=== PATIENT | male | born 1945 | race Caucasian/White ===

== ENCOUNTER → 2017-08-26 | Day surgery (SDC) | payer OTHER, MEDICARE ==
[~2017-08-26] MED LIST: PROPOFOL 20 ML IV
[2017-08-26] MEDS: IV RINGERS,LACTATED 1000ML 1,000 ML IV (13:15)
== END | disposition home or self-care (01) ==
LOC: ENDOS 12:32
DX: Z43.1 Encounter for attention to gastrostomy (principal); K21.9 Gastro-esophageal reflux disease without esophagitis; E11.9 Type 2 diabetes mellitus without complications; F41.9 Anxiety disorder, unspecified; D64.9 Anemia, unspecified; N40.0 Benign prostatic hyperplasia without lower urinary tract symptoms; I10 Essential (primary) hypertension; E66.9 Obesity, unspecified; Z68.28 Body mass index [BMI] 28.0-28.9, adult; Z87.39 Personal history of other diseases of the musculoskeletal system and connective tissue; Z98.890 Other specified postprocedural states; Z87.01 Personal history of pneumonia (recurrent); Z88.5 Allergy status to narcotic agent; Z88.0 Allergy status to penicillin; Z88.6 Allergy status to analgesic agent; Z88.1 Allergy status to other antibiotic agents; Z79.01 Long term (current) use of anticoagulants; Z96.641 Presence of right artificial hip joint
CPT/HCPCS: 43247; J2704

== ENCOUNTER → 2018-04-13 | Day surgery (SDC) | payer OTHER ==
[~2018-04-13] MED LIST changes: +ACET1TAB33 PO; +ACET500T33 PO; +ACET650S11 PR; +ALBUTEROL SULFATE 2.5 MG/3 ML NEBU. NEB PRN; +ASCO10002 PO; +BISA-42 PO; +CALC600T4 PO; +CARB1TAB2 PO; +CETI10TA22 PO; +CHOL100013 PO; +CHOL2000 PO; +CHOL500045 PO; +DOCU-109 PO; +DOCU100C28 PO; +EPINEPHrine 1 MG/ML VIAL INJ PRN; +FURO-68 PO; +GLUC1CAP13 PO; +HYDR-2765 PO; +HYDROmorphone 2 MG/ML VIAL IV PRN; +IPRA0.2S5 NEB; +IV RINGERS,LACTATED 1000ML 1,000 ML IV SCH; +KETAMINE HCL IN NACL, ISO-OSM 50 MG/5 ML SYRINGE ONE; +LIDOCAINE 1% Multi-Dose 20 ML VIAL. INJ PRN; +LIDOCAINE 1% PF 2 ML VIAL. ID PRN; +LIDOCAINE 2% PF 5 ML VIAL. ONE; +LIDOCAINE 2% VISCOUS 100 ML BOTTLE. MM PRN; +LIDOCAINE 4% TOPICAL 50 ML SOLUTION. MM PRN; +LORA2ORA7 SL; +MICO142C TP; +MIDAZOLAM HCL/PF 2 MG/2 ML VIAL. IV PRN; +MORP100S3 SL; +MORPHINE SULFATE 4 MG/ML VIAL. IV PRN; +MULT-658 PO; +NYST15PO9 TP; +OMEG1CAP27 PO; +ONDANSETRON PF 4 MG/2 ML VIAL. IV PRN; +POTA20TA12 PO; +POTA20TA82 PO; +PRAM0.255 PO; +PRAM1.5T PO; +PROCHLORPERAZINE 10 MG/2 ML VIAL. IV PRN; -PROPOFOL 20 ML IV; +PROPOFOL 20 ML IV ONE; +SCOP1PAT11 TD; +TAMS0.4C97 PO; +UBID50TA PO; +fentaNYL PF VIAL 100 MCG/2 ML VIAL IV PRN
[2018-04-13 14:30] VITALS: BP 110/68
--- NOTE | 2018-04-13 17:22 | PDOC4 ---
PROCEDURE Procedure [id number] YESENIA GARCIAS MD Apr 13, 2018 17:22
--- NOTE | 2018-04-13 17:38 | OP ---
DATE OF SURGERY: 04/13/2018 PROCEDURE: Bronchoscopy. INDICATIONS: The patient presented with respiratory failure, was mechanically intubated, underwent tracheotomy and tracheotomy was removed, he was decannulated. He presents with persistent bilateral pulmonary infiltrates of unknown etiology, undergoing a diagnostic bronchoscopy. Risks, benefits, and alternatives reviewed with the patient, he consented. MEDICATIONS: Please see anesthesia notes. DESCRIPTION OF PROCEDURE: Timeout was performed prior to sedation. Vital signs and O2 saturation were maintained within normal limits throughout the procedure. Bronchoscope was passed through the left naris. The vocal cords were identified moving bilaterally without any dysfunction. The vocal cords were then anesthetized with a total 5 mL of 4% lidocaine. The bronchoscope was passed through the vocal cords into the proximal trachea, which was normal. The distal trachea was likewise normal. The right and left segments and subsegments were visualized. There were no endobronchial lesions. Lavage of the right lower lobe and left lower lobe was performed. The return on the left was clear. The return on the right was serosanguineous. IMPRESSION: 1. Normal vocal cords. 2. No endobronchial lesion. 3. No purulent secretion. PLAN: We will await the BAL results. The patient tolerated procedure well with no immediate complications. YESENIA GARCIAS MD DR: KAMI/lu JOB#: [id number] / [id number]
--- NOTE | 2018-04-14 16:10 | PATHOLOGY ---
Note [facility] Accession Number: [id number] TESTS RESULT FLAG UNITS REF RANGE LAB Clinician Provided Cytology Information No. of containers..01 Other (Miscellaneous) Source: RT LUNG BAL DIAGNOSIS: RT LUNG BAL NEGATIVE FOR MALIGNANT CELLS. REACTIVE BRONCHIAL CELLS ARE PRESENT. PULMONARY MACROPHAGES AND INFLAMMATORY CELLS ARE PRESENT. Signed out by: Gavino Cobb MD, Pathologist NPI- [id number] Performed by: Dariel Almodovar, Warehouse Forklift Operator ([facility]) Gross description: 01 14ML, RED, CLOUDY /LCS FLAG LEGEND: L-Low Normal,H-High Normal,LL-Alert Low,HH-Alert High <-Panic Low,>-Panic High,A-Abnormal,AA-Critical Abnormal Performed at: [address] [place] [address] Marshall Babb MD, 02 [facility] [address] [place] [address] Gavino Cobb MD, Specimen Comment: A courtesy copy of this report has been sent to Specimen Comment: [phone]. Specimen Comment: Report sent to Specimen Comment: A duplicate report has been generated due to demographic updates. Performed at: [address] [place] [address] [address], [place], [place] [id number] MD Marshall Babb MD Phone: [phone]
--- NOTE | 2018-04-14 16:10 | PATHOLOGY ---
Note [facility] Accession Number: [id number] TESTS RESULT FLAG UNITS REF RANGE LAB Clinician Provided Cytology Information No. of containers..01 Other (Miscellaneous) Source: LT LUNG BAL DIAGNOSIS: LT LUNG BAL NEGATIVE FOR MALIGNANT CELLS. REACTIVE BRONCHIAL CELLS ARE PRESENT. PULMONARY MACROPHAGES AND INFLAMMATORY CELLS ARE PRESENT. Signed out by: 02 Gavino Cobb MD, Pathologist NPI- [id number] Performed by: Dariel Almodovar, [place] Member ([facility]) Gross description: 01 5ML, LIGHT RED, CLOUDY /LCS FLAG LEGEND: L-Low Normal,H-High Normal,LL-Alert Low,HH-Alert High <-Panic Low,>-Panic High,A-Abnormal,AA-Critical Abnormal Performed at: [address] [place] [address] Marshall Babb MD, [address] [facility] [address] [place] [address] Gavino Cobb MD, Specimen Comment: A duplicate report has been generated due to demographic updates. Performed at: [address], [place], [place] [id number] MD Marshall Babb MD Phone: [phone]
== END | disposition home or self-care (01) ==
LOC: SURG 11:58
PROVIDERS: ATTEND Internal Medicine Pulmonary Disease
DX: J96.10 Chronic respiratory failure, unspecified whether with hypoxia or hypercapnia (principal); R91.8 Other nonspecific abnormal finding of lung field; Z88.1 Allergy status to other antibiotic agents; Z88.8 Allergy status to other drugs, medicaments and biological substances; Z88.6 Allergy status to analgesic agent; Z79.899 Other long term (current) drug therapy
CPT/HCPCS: 31624; 87070; 87102; 87116; 87205; 94640; J0171; J2001; J2704; J7613; 31622; 87015; 88112

== ENCOUNTER 2018-05-12 14:18 | Inpatient (IN) | payer MEDICARE, OTHER ==
[~2018-05-12] VITALS: Ht 182.9 cm; Wt 113.4 kg
[~2018-05-12 14:18] MED LIST changes: -ACET650S11 PR; -ALBUTEROL SULFATE 2.5 MG/3 ML NEBU. NEB PRN; -EPINEPHrine 1 MG/ML VIAL INJ PRN; -HYDROmorphone 2 MG/ML VIAL IV PRN; -IV RINGERS,LACTATED 1000ML 1,000 ML IV SCH; -KETAMINE HCL IN NACL, ISO-OSM 50 MG/5 ML SYRINGE ONE; -LIDOCAINE 1% Multi-Dose 20 ML VIAL. INJ PRN; -LIDOCAINE 1% PF 2 ML VIAL. ID PRN; -LIDOCAINE 2% PF 5 ML VIAL. ONE; -LIDOCAINE 2% VISCOUS 100 ML BOTTLE. MM PRN; -LIDOCAINE 4% TOPICAL 50 ML SOLUTION. MM PRN; -LORA2ORA7 SL; -MICO142C TP; -MIDAZOLAM HCL/PF 2 MG/2 ML VIAL. IV PRN; -MORP100S3 SL; -MORPHINE SULFATE 4 MG/ML VIAL. IV PRN; -NYST15PO9 TP; -ONDANSETRON PF 4 MG/2 ML VIAL. IV PRN; -PROCHLORPERAZINE 10 MG/2 ML VIAL. IV PRN; -PROPOFOL 20 ML IV ONE; -SCOP1PAT11 TD; -fentaNYL PF VIAL 100 MCG/2 ML VIAL IV PRN
[2018-05-12] MEDS ORDERED: IV NORMAL SALINE 500ML BAG 500 ML IV ONE (15:30)
--- NOTE | 2018-05-12 15:51 | PHYS DOC ---
Past Medical History Past Medical History: Diabetes-Type II, Other Additional Past Medical Histor: PARKINSONS DISEASE, BLE EDEMA,CHRONIC NECK AND LUMBAR PAIN Past Surgical History: Tonsillectomy, Other Additional Past Surgical Histo: CERVICAL AND LUMBAR SURGERY R/T STENOSIS Alcohol Use: None Drug Use: None Adult General Chief Complaint Chief Complaint: WEAKNESS/GENERALIZED HPI HPI Patient is a 72 year old male who presents with his with complaints of generalized weakness, low BP, and near syncopal episode today. reports pt was hospitalized at [facility] on 03/24-03/27 for pneumonia and has not returned to baseline from a pulmonary perspective. Pt was prescribed Prednisone by Dr. Vasquez on 05/04/18 which was discontinued due to profound weakness and altered mental status. reports increased blood pressure lability with orthostatic hypotension, and hypothermia. Pt also reports increased hallucinations in the last 2-3 days. He denies being distressed by these hallucinations which he describes as "people in the room." He denies chest pain, shortness of breath, nausea, vomiting, abdominal pain or pain on urination. POSITIVE COUGH or YELLOW SPUTUM [] Review of Systems Review of Systems Constitutional: Denies fever or chills [] Eyes: Denies change in visual acuity, redness, or eye pain [] HENT: Denies nasal congestion or sore throat [] Respiratory: Endorses productive cough, denies shortness of breath or wheezing [ ] Cardiovascular: No additional information not addressed in HPI [] GI: Denies abdominal pain, nausea, vomiting, bloody stools or diarrhea [] : Denies dysuria or hematuria [] Musculoskeletal: Denies back pain or joint pain [] Integument: Denies rash or skin lesions [] Neurologic: Denies headache, focal weakness or sensory changes [] Endocrine: Denies polyuria or polydipsia [] All other systems were reviewed and found to be within normal limits, except as documented in this note. Current Medications Current Medications Current Medications Medications (Trade) Dose Ordered Sig/Ahmet Start Time Stop Time Status Last Admin Dose Admin Levofloxacin/ Dextrose 150 ml @ 100 mls/hr 1X ONCE 05/12/18 17:00 05/12/18 18:29 Levofloxacin/ Dextrose (Levaquin Per Pharmacy) 1 each PRN DAILY PRN 05/12/18 17:00 UNV Sodium Chloride 500 ml @ 500 mls/hr 1X ONCE 05/12/18 15:30 05/12/18 16:29 DC 05/12/18 16:05 500 MLS/HR Vancomycin HCl (Vanco Per Pharmacy) 1 each PRN DAILY PRN 05/12/18 17:00 UNV Allergies Allergies Allergies Coded Allergies Type Severity Reaction Last Updated Verified amoxicillin Allergy Severe Anaphylaxis 08/26/17 Yes aspirin Allergy Severe Anaphylaxis 08/26/17 Yes clavulanic acid Allergy Severe Anaphylaxis 08/26/17 Yes ibuprofen Allergy Severe 08/26/17 Yes meperidine Allergy Severe Anaphylaxis, has tolerated Fentanyl 03/201408/26/17 Yes propoxyphene Allergy Severe 08/26/17 Yes Physical Exam Physical Exam Constitutional: Well developed, well nourished, no acute distress, non-toxic appearance. [] HENT: Normocephalic, atraumatic, bilateral external ears normal, oropharynx moist, no oral exudates, nose normal. [] Eyes: PERRLA, EOMI, conjunctiva normal, no discharge. [] Neck: Normal range of motion, no tenderness, supple, no stridor. [] Cardiovascular:Heart rate regular rhythm, no murmur [] Lungs & Thorax: Crackles left lung base Abdomen: Bowel sounds normal, soft, no tenderness, no masses, no pulsatile masses. [] Skin: Warm, dry, no erythema, no rash. [] Back: No tenderness, no CVA tenderness. [] Extremities: No tenderness, no cyanosis, no clubbing, ROM intact, no edema. [] Neurologic: Alert and oriented X 3, normal motor function, normal sensory function, no focal deficits noted, gait not examined. [] Psychologic: Affect flat, judgement normal, mood normal. [] Current Patient Data Lab Values Laboratory Tests Test 05/12/18 15:52 White Blood Count 13.0 x10^3/uL (4.0-11.0) H Red Blood Count 5.15 x10^6/uL (4.30-5.70) Hemoglobin 14.3 g/dL (13.0-17.5) Hematocrit 43.9 % (39.0-53.0) Mean Corpuscular Volume 85 fL (79-100) Mean Corpuscular Hemoglobin 28 pg (25-35) Mean Corpuscular Hemoglobin Concent 33 g/dL (31-37) Red Cell Distribution Width 16.1 % (11.5-14.5) H Platelet Count 109 x10^3/uL (140-400) L Neutrophils (%) (Auto) 92 % (31-73) H Lymphocytes (%) (Auto) 4 % (24-48) L Monocytes (%) (Auto) 4 % (0-9) Eosinophils (%) (Auto) 0 % (0-3) Basophils (%) (Auto) 0 % (0-3) Neutrophils # (Auto) 12.0 x10^3uL (1.8-7.7) H Lymphocytes # (Auto) 0.5 x10^3/uL (1.0-4.8) L Monocytes # (Auto) 0.5 x10^3/uL (0.0-1.1) Eosinophils # (Auto) 0.0 x10^3/uL (0.0-0.7) Basophils # (Auto) 0.0 x10^3/uL (0.0-0.2) Platelet Estimate Pending Sodium Level 136 mmol/L (136-145) Potassium Level 4.5 mmol/L (3.5-5.1) Chloride Level 96 mmol/L (98-107) L Carbon Dioxide Level 32 mmol/L (21-32) Anion Gap 8 (6-14) Blood Urea Nitrogen 15 mg/dL (8-26) Creatinine 0.5 mg/dL (0.7-1.3) L Estimated GFR (Cockcroft-Gault) 164.4 BUN/Creatinine Ratio 30 (6-20) H Glucose Level 101 mg/dL (70-99) H Lactic Acid Level 0.8 mmol/L (0.4-2.0) Calcium Level 9.1 mg/dL (8.5-10.1) Total Bilirubin 0.6 mg/dL (0.2-1.0) Aspartate Amino Transferase (AST) 37 U/L (15-37) Alanine Aminotransferase (ALT) 19 U/L (16-63) Alkaline Phosphatase 112 U/L (46-116) Troponin I Quantitative < 0.017 ng/mL (0.000-0.055) Total Protein 7.5 g/dL (6.4-8.2) Albumin 3.3 g/dL (3.4-5.0) L Albumin/Globulin Ratio 0.8 (1.0-1.7) L Laboratory Tests 05/12/18 15:52 Laboratory Tests 05/12/18 15:52 EKG EKG Normal sinus rhythm rate of 54 no acute ischemic changes noted interpreted by me time of encounter.[] Radiology/Procedures Radiology/Procedures [] Impressions: Impression: Pulmonary vasculature congestion. Left basilar consolidation. Follow-up to resolution should be considered. Electronically signed by: Theodore Dawkins MD (05/12/2018 4:11 PM) [id number] DICTATED and SIGNED BY: THEODORE DAWKINS MD DATE: 05/12/18 1610 Course & Med Decision Making Course & Med Decision Making Patient is a 72 year old male with past medical history of Parkinson' s and COPD presents with generalized weakness and hypotension with a fall, without loss of consciousness or head injury. R/o infectious process- recurrent pneumonia, UTI vs. autonomic instability vs. cardiac origin Pertinent Labs and Imaging studies reviewed. (See chart for details) Plan EKG CXR CBC CMP Possible blood cultures [] Final plan: Patient has left lower pneumonia Vanco and Levaquin were given for HCAP COVDRAGE discussed with Val plan to admit for further evaluation monitoring blood pressure in the emergency room is fine. Dragon Disclaimer Dragon Disclaimer This electronic medical record was generated, in whole or in part, using a voice recognition dictation system. Departure Departure Impression: Primary Impression: Pneumonia Disposition: 09 ADMITTED INPATIENT Admitting Physician: Sabino Neal Condition: STABLE Referrals: JYOTI SANCHEZ (PCP) JESSICA ARECHIGA MD May 12, 2018 15:51
[2018-05-12 16:10] LABS: BASO % 0 % (0-3); EOS % 0 % (0-3); HEMATOCRIT 43.9 % (39.0-53.0); HEMOGLOBIN 14.3 g/dL (13.0-17.5); LYMPH # 0.5 x10^3/uL (1.0-4.8); LYMPH % 4 % (24-48); MEAN CORPUSCULAR HEMOGLOBIN 28 pg (25-35); MEAN CORPUSCULAR HGB CONC 33 g/dL (31-37); MEAN CORPUSCULAR VOLUME 85 fL (79-100); MONO # 0.5 x10^3/uL (0.0-1.1); MONO % 4 % (0-9); NEUT % 92 % (31-73); PLATELET COUNT 109 x10^3/uL (140-400); RED BLOOD COUNT 5.15 x10^6/uL (4.30-5.70); RED CELL DISTRIBUTION WIDTH 16.1 % (11.5-14.5)
--- NOTE | 2018-05-12 16:14 | RAD ---
Examination: PORTABLE CHEST 1V History: Cough and fever Comparison/Correlation: 07/20/2017 portable upright frontal view of the chest Findings: Portable upright frontal view chest was obtained. Postoperative cervical spine fusion noted. Heart size is within normal limits. Pulmonary vasculature is congested. Interstitial edema is noted. Left basilar retrocardiac consolidation. No pneumothorax. Impression: Pulmonary vasculature congestion. Left basilar consolidation. Follow-up to resolution should be considered. Electronically signed by: Theodore Rodgers MD (05/12/2018 4:11 PM) [id number]
[2018-05-12 16:23] LABS: CALCIUM 9.1 mg/dL (8.5-10.1); CREATININE 0.5 mg/dL (0.7-1.3); GFR 164.4; POTASSIUM 4.5 mmol/L (3.5-5.1)
[2018-05-12 16:29] LABS: ALBUMIN 3.3 g/dL (3.4-5.0); ALBUMIN/GLOBULIN RATIO 0.8 (1.0-1.7); TOTAL BILIRUBIN 0.6 mg/dL (0.2-1.0); TOTAL PROTEIN 7.5 g/dL (6.4-8.2)
[2018-05-12 16:46] LABS: BILIRUBIN,URINE NEGATIVE (NEG); CLARITY,URINE CLEAR; COLOR,URINE YELLOW; NITRITE,URINE NEGATIVE (NEG); PH,URINE 6.5; PROTEIN,URINE NEGATIVE (NEG-TRACE)
[2018-05-12] MEDS ORDERED: levOFLOXacin PER PHARMACY. MC PRN (17:00)
[2018-05-12 17:13] LABS: % ATYL 1 % (0-0); % BANDS 6 % (0-9); % LYMPHS 2 % (24-48); % MONOS 5 % (0-10); % SEGS 86 % (35-66); PLT ESTIMATE DECREASED (ADEQUATE); TOXIC GRANULATION SLIGHT
[2018-05-12 17:16] LABS: BACTERIA,URINE 0 /HPF (0-FEW); RBC,URINE 0 /HPF (0-2); SQUAMOUS EPITHELIAL CELL,UR FEW /LPF; WBC,URINE 0 /HPF (0-4)
[2018-05-12 17:26] LABS: INFLUENZA A PATIENT NEGATIVE (NEGATIVE); INFLUENZA B PATIENT NEGATIVE (NEGATIVE)
[2018-05-12] MEDS ORDERED: VANCOMYCIN 2 GM in IV NORMAL SALINE 500ML BAG 500 ML IV ONE (18:00)
--- NOTE | 2018-05-12 18:46 | HP ---
ADMIT DATE: 05/12/2018 CHIEF COMPLAINT: Shortness of breath, cough, weakness, hypotension, near syncope. HISTORY OF PRESENT ILLNESS: The patient is a pleasant 72-year-old male who has Parkinson's. Seems to be progressing over the past month. The states he is quite weak. He has been choking some. He is on his mechanical soft diet. His blood pressure has been running a little low. He had a near syncopal episode. He was seen at [facility] on 03/24/2018 for pneumonia and had now returned to his baseline since then. He has seen Dr. Vasquez just last week. He was on prednisone. Apparently that has been discontinued because he has been too weak. The reports his pressures have been up and down and he has been somewhat cold and having some hallucinations as well. I have discussed the case with the ER physician. The imaging studies showing a possible vascular congestion and a left basilar consolidation. We are going to admit the patient and consult Dr. Vasquez and Dr. Claros. PAST MEDICAL HISTORY: Parkinson's, cervical and lumbar surgeries, diabetes, tonsillectomy. ALLERGIES: AMOXICILLIN, ASPIRIN, CLAVULANIC ACID, IBUPROFEN, MEPERIDINE AND PROPOXYPHENE. FAMILY HISTORY: Hypertension. SOCIAL HISTORY: He has been for 45 years. He does not drink, smoke or take drugs. Lives with his . MEDICATIONS: Reviewed. He is on Zyrtec, albuterol, Sinemet, Mirapex, potassium, Lasix, Colace, vitamins. REVIEW OF SYSTEMS: Unable to obtain. The patient is too weak, cannot talk much. PHYSICAL EXAMINATION: VITAL SIGNS: Temperature afebrile, pulse 98, respirations 18, blood pressure 144/90. GENERAL: He is alert, but very weak. His is present. She is good support for him. HEART: Distant S1, S2. LUNGS: Coarse with a cough. ABDOMEN: Soft. EXTREMITIES: Trace edema. SKIN: No rashes. ENDOCRINE: No thyromegaly. LYMPHATICS: No cervical nodes. HEMATOPOIETIC: No bruising. PSYCHIATRIC: He seems depressed. NEUROLOGICAL: He really does not move much. He is trying to talk, but he is just too weak. LABORATORY DATA: White count is 13. Electrolytes are normal. Troponin is 0. Urinalysis is negative. Chest x-ray shows pneumonia and/or vascular congestion. ASSESSMENT AND PLAN: Pneumonia and vascular congestion, possible aspiration, mental status change, weakness. The patient has been admitted. We will start IV antibiotics, breathing treatments, oxygen. Consult Dr. Claros. Consult Dr. Vasquez. I am going to try get most of his home meds, mechanical soft diet, PT, OT. Speech Therapy to evaluate and treat. Full code. IV vancomycin, IV Levaquin. half-way prognosis guarded. SAMANTHA HERRERA DO DR: RICCI/lu JOB#: [id number] / [id number]
[2018-05-12] MEDS: VANCOMYCIN PER PHARMACY MC PRN (19:21)
[2018-05-12 20:00] VITALS: BP 123/78
[2018-05-12] MEDS ORDERED: MICO142C TP (21:44)
[2018-05-12] MEDS ORDERED: NYST15PO9 TP (21:44)
[2018-05-12] MEDS ORDERED: MICONAZOLE NITRATE 2% TOPICAL CREAM 28GM TUBE. TP PRN (22:15)
[2018-05-12] MEDS: CARBIDOPA/LEVODOPA 25/100MG TABLET PO SCH (22:28)
[2018-05-12] MEDS: NYSTATIN TOPICAL POWDER 15GM BOTTLE. TP SCH (22:28)
[2018-05-12] MEDS: PRAMIPEXOLE 1 MG TABLET. PO SCH (22:28)
[2018-05-12] MEDS: LACTOBACILLUS RHAMNOSUS GG 1 CAPSULE. PO SCH (22:29)
[2018-05-12 23:25] VITALS: BP 117/66
[2018-05-13 03:25] VITALS: BP 135/76
[2018-05-13] MEDS: VANCOMYCIN 1.75 GM in IV NORMAL SALINE 500ML BAG 500 ML IV SCH ×2 (06:06→21:26)
[2018-05-13 07:00] VITALS: BP 126/71
[2018-05-13 07:08] LABS: CREATININE 0.5 mg/dL (0.7-1.3); GFR 164.4
[2018-05-13] MEDS ORDERED: IPRATROPIUM BROMIDE 0.5 MG/2.5 ML NEBU. NEB SCH (08:00)
[2018-05-13] MEDS ORDERED: DOCUSATE SODIUM 100 MG CAPSULE. PO SCH (09:00)
[2018-05-13] MEDS: CARBIDOPA/LEVODOPA 25/100MG TABLET PO SCH ×4 (09:36→21:26)
[2018-05-13] MEDS: LACTOBACILLUS RHAMNOSUS GG 1 CAPSULE. PO SCH ×2 (09:37→21:26)
[2018-05-13] MEDS: CETIRIZINE HCL 10 MG TABLET. PO SCH (09:37)
[2018-05-13] MEDS: PRAMIPEXOLE 1 MG TABLET. PO SCH ×3 (09:37→21:26)
[2018-05-13] MEDS: DOCUSATE SODIUM 100 MG CAPSULE. PO SCH ×2 (09:37→21:26)
--- NOTE | 2018-05-13 10:38 | PDOC2 ---
NEUROLOGY CONSULT Date of Admission Date of Admission DATE: 05/13/18 TIME: 10:27 Reason for Consult Reason for Consult: Parkinson's Referring Physician Referring Physician: Dr. Neal PCP: Ms. Johnson Source Source: Chart review, Patient History of Present Illness History of Present Illness The patient is a 72-year-old right-handed male with a 3-year diagnosis of Parkinson's for which he follows with Dr. Claros. He has had some increased weakness and choking for the past month or 2. He may have pneumonia on chest x- ray. He was admitted to the hospital for 6 weeks total regarding severe pneumonia 9 months ago. He had to go to rehab for a few weeks. He did pass a swallow study then, but has been on a mechanically soft diet. He does not have much tremor. He gets around with a cane or a walker, and has not had a recent fall. He denies cognitive problems or incontinence. There is no history of stroke, seizure, or head injury. He does have diabetic neuropathy. Past Medical History CENTRAL NERVOUS SYSTEM: Periperal neuropathy, Other ( Parkinson's) Endocrine: Diabetes Past Surgical History Past Surgical History: Total hip replacement, Other (Cervical fusion, lumbar surgery, left 5th digit) Family History Family History: Other ( father had Parkinson's, mother had Alzheimer's) Social History Social History , no tobacco or alcohol Current Medications Current Medications Current Medications Sodium Chloride 500 ml @ 500 mls/hr 1X ONCE IV Last administered on at 16:05; Start 05/12/18 at 15:30; Stop 05/12/18 at 16:29; Status DC Vancomycin HCl (Vanco Per Pharmacy) 1 each PRN DAILY PRN MC SEE COMMENTS Last administered on 05/12/18at 19:21; Start 05/12/18 at 17:00 Levofloxacin/ Dextrose (Levaquin Per Pharmacy) 1 each PRN DAILY PRN MC SEE COMMENTS; Start 05/12/18 at 17:00 Levofloxacin/ Dextrose 150 ml @ 100 mls/hr 1X ONCE IV Last administered on at 17:30; Start 05/12/18 at 17:00; Stop 05/12/18 at 18:29; Status DC Vancomycin HCl 2 gm/Sodium Chloride 500 ml @ 250 mls/hr 1X ONCE IV Last administered on 05/12/18at 19:12; Start 05/12/18 at 18:00; Stop 05/12/18 at 19:59 ; Status DC Levofloxacin/ Dextrose 150 ml @ 100 mls/hr Q24H IV ; Start 05/13/18 at 17:00 Vancomycin HCl 1.75 gm/Sodium Chloride 500 ml @ 250 mls/hr Q12H IV Last administered on 05/13/18at 06:06; Start 05/13/18 at 07:00 Vancomycin HCl (Vancomycin Trough Level) 1 each 1X ONCE MC ; Start 05/14/18 at 06:30; Stop 05/14/18 at 06:31 Lactobacillus Rhamnosus (Culturelle) 1 cap BID PO Last administered on at 09:37; Start 05/12/18 at 21:00 Carbidopa/Levodopa (Sinemet 25/100) 1 tab QID PO Last administered on at 09:36; Start 05/12/18 at 22:30 Cetirizine HCl (ZyrTEC) 10 mg DAILY PO Last administered on 05/13/18at 09:37; Start 05/13/18 at 09:00 Docusate Sodium (Colace) 100 mg DAILY PO ; Start 05/13/18 at 09:00; Stop at 09:00; Status DC Docusate Sodium (Colace) 100 mg BID PO Last administered on 05/13/18at 09:37; Start 05/13/18 at 09:00 Ipratropium [place] (Atrovent) 0.5 mg RTQID NEB Last administered on 05/13/18at 07:30; Start 05/13/18 at 08:00 Miconazole Nitrate (Monistat-Derm) 1 kaylan PRN BID PRN TP RASH; Start 05/12/18 at 22:15 Nystatin (Nystop) 1 kaylan BID TP Last administered on 05/12/18at 22:28; Start at 09:00 Pramipexole Dihydrochloride (miraPEX) 1.5 mg [id number] PO Last administered on at 09:37; Start 05/12/18 at 22:30 Active Scripts Active Colace (Docusate Sodium) 100 Mg Capsule 100 Mg PO BID Reported Elizabeth Antifungal (Miconazole Nitrate) 142 Gm Cream..g. 142 Gm TP BID PRN Nystatin 15 Gm Powder 1 Kaylan TP BID Colace (Docusate Sodium) 100 Mg Capsule 1 Cap PO DAILY Vitamin D (Cholecalciferol (Vitamin D3)) 2,000 Unit Capsule 5,000 Unit PO DAILY Centrum Silver Tablet (Multivits-Min/Fa/Lycopene/Lut) 1 Each Tablet 1 Each PO DAILY Lasix (Furosemide) 40 Mg Tablet 1 Tab PO DAILY Potassium Chloride 20 Meq Tablet.er 20 Meq PO DAILY Ipratropium [place] 0.2 Mg/1 Ml Solution 0.5 Mg NEB QID Vitamin D (Cholecalciferol (Vitamin D3)) 1,000 Unit Capsule 1 Cap PO DAILY Mirapex (Pramipexole Di-Hcl) 0.25 Mg Tablet 1.5 Mg PO TID Sinemet 25-100 Mg Tablet (Carbidopa/Levodopa) 1 Each Tablet 1 Tab PO QID 30 Days take 1 tablet four times a day, add an additional tablet to the afternoon dose Zyrtec (Cetirizine Hcl) 10 Mg Tablet 1 Tab PO DAILY Allergies Allergies: Coded Allergies: amoxicillin (Verified Allergy, Severe, Anaphylaxis, 08/26/17) aspirin (Verified Allergy, Severe, Anaphylaxis, 08/26/17) clavulanic acid (Verified Allergy, Severe, Anaphylaxis, 08/26/17) ibuprofen (Verified Allergy, Severe, 08/26/17) Pt. uneasy taking this med as it may cause a reaction similar to one from aspirin. meperidine (Verified Allergy, Severe, Anaphylaxis, has tolerated Fentanyl 03/2014, 08/26/17) propoxyphene (Verified Allergy, Severe, 08/26/17) ROS Review of System Negative for fever, chills, weight loss, shortness of breath, chest pain, indigestion, hematochezia, melena, and dysuria. Full 14-point review of systems is negative. Physical Exam Physical Examination General: Well-developed, well-nourished white male in no acute distress HEENT: Normocephalic andatraumatic.Temporal arteriespulsatile and nontender. Neck: Supple without bruit, no meningismus Musculoskeletal: Stability:see neurologic. Gait exam:see neurologic. Tone:see neurologic. Strength:see neurologic. Neurological: Mental Status:intact, orientation, memory, attention span/concentration, language, fund of knowledge normal. Cranial Nerves:Pupils equal and reactive to light, extraocular movements areintact, visual pulliam are full to confrontation. Facial sensation is normal. There is no facial asymmetry. Vestibulo-ocular reflex is intact. Palate elevates and tongue protrudes in midline. All other cranial related problems are negative except as mentioned before.Reflexes:0-1+ and symmetric with flexor plantar responses. Motor:4/5 strength with cogwheel rigidity. Coordination:Finger-nose finger and heel-to- fleming testing are normal. There is bilateral bradykinesia. There is no tremor. Gait: not tested. Sensory: stocking loss. Vitals VITALS Vital Signs Date Time Temp Pulse Resp B/P (MAP) Pulse Ox O2 Delivery O2 Flow Rate FiO2 05/13/18 08:37 94 Nasal Cannula 3.0 05/13/18 07:00 98.0 78 20 126/71 (89) 98.0 Labs Labs Laboratory Tests Test 05/12/18 15:52 05/12/18 16:40 05/12/18 17:01 05/13/18 06:19 White Blood Count 13.0 x10^3/uL (4.0-11.0) Red Blood Count 5.15 x10^6/uL (4.30-5.70) Hemoglobin 14.3 g/dL (13.0-17.5) Hematocrit 43.9 % (39.0-53.0) Mean Corpuscular Volume 85 fL (79-100) Mean Corpuscular Hemoglobin 28 pg (25-35) Mean Corpuscular Hemoglobin Concent 33 g/dL (31-37) Red Cell Distribution Width 16.1 % (11.5-14.5) Platelet Count 109 x10^3/uL (140-400) Neutrophils (%) (Auto) 92 % (31-73) Lymphocytes (%) (Auto) 4 % (24-48) Monocytes (%) (Auto) 4 % (0-9) Eosinophils (%) (Auto) 0 % (0-3) Basophils (%) (Auto) 0 % (0-3) Neutrophils # (Auto) 12.0 x10^3uL (1.8-7.7) Lymphocytes # (Auto) 0.5 x10^3/uL (1.0-4.8) Monocytes # (Auto) 0.5 x10^3/uL (0.0-1.1) Eosinophils # (Auto) 0.0 x10^3/uL (0.0-0.7) Basophils # (Auto) 0.0 x10^3/uL (0.0-0.2) Segmented Neutrophils % 86 % (35-66) Band Neutrophils % 6 % (0-9) Lymphocytes % 2 % (24-48) Atypical Lymphocytes % (Manual) 1 % (0-0) Monocytes % 5 % (0-10) Toxic Granulation Slight Platelet Estimate Decreased (ADEQUATE) Giant Platelets Occ Sodium Level 136 mmol/L (136-145) Potassium Level 4.5 mmol/L (3.5-5.1) Chloride Level 96 mmol/L (98-107) Carbon Dioxide Level 32 mmol/L (21-32) Anion Gap 8 (6-14) Blood Urea Nitrogen 15 mg/dL (8-26) Creatinine 0.5 mg/dL (0.7-1.3) 0.5 mg/dL (0.7-1.3) Estimated GFR (Cockcroft-Gault) 164.4 164.4 BUN/Creatinine Ratio 30 (6-20) Glucose Level 101 mg/dL (70-99) Lactic Acid Level 0.8 mmol/L (0.4-2.0) Calcium Level 9.1 mg/dL (8.5-10.1) Total Bilirubin 0.6 mg/dL (0.2-1.0) Aspartate Amino Transf (AST/SGOT) 37 U/L (15-37) Alanine Aminotransferase (ALT/SGPT) 19 U/L (16-63) Alkaline Phosphatase 112 U/L (46-116) Troponin I Quantitative < 0.017 ng/mL (0.000-0.055) Total Protein 7.5 g/dL (6.4-8.2) Albumin 3.3 g/dL (3.4-5.0) Albumin/Globulin Ratio 0.8 (1.0-1.7) Urine Collection Type Unknown Urine Color Yellow Urine Clarity Clear Urine pH 6.5 Urine Specific [place] 1.015 Urine Protein Negative mg/dL (NEG-TRACE) Urine Glucose (UA) Negative mg/dL (NEG) Urine Ketones (Stick) Negative mg/dL (NEG) Urine Blood Negative (NEG) Urine Nitrite Negative (NEG) Urine Bilirubin Negative (NEG) Urine Urobilinogen Dipstick 1.0 mg/dL (0.2 mg/dL) Urine Leukocyte Esterase Negative (NEG) Urine RBC 0 /HPF (0-2) Urine WBC 0 /HPF (0-4) Urine Squamous Epithelial Cells Few /LPF Urine Bacteria 0 /HPF (0-FEW) Urine Mucus Slight /LPF Influenza Type A Antigen Negative (NEGATIVE) Influenza Type B Antigen Negative (NEGATIVE) Laboratory Tests Test 05/12/18 15:52 05/12/18 16:40 05/12/18 17:01 05/13/18 06:19 White Blood Count 13.0 x10^3/uL (4.0-11.0) Red Blood Count 5.15 x10^6/uL (4.30-5.70) Hemoglobin 14.3 g/dL (13.0-17.5) Hematocrit 43.9 % (39.0-53.0) Mean Corpuscular Volume 85 fL (79-100) Mean Corpuscular Hemoglobin 28 pg (25-35) Mean Corpuscular Hemoglobin Concent 33 g/dL (31-37) Red Cell Distribution Width 16.1 % (11.5-14.5) Platelet Count 109 x10^3/uL (140-400) Neutrophils (%) (Auto) 92 % (31-73) Lymphocytes (%) (Auto) 4 % (24-48) Monocytes (%) (Auto) 4 % (0-9) Eosinophils (%) (Auto) 0 % (0-3) Basophils (%) (Auto) 0 % (0-3) Neutrophils # (Auto) 12.0 x10^3uL (1.8-7.7) Lymphocytes # (Auto) 0.5 x10^3/uL (1.0-4.8) Monocytes # (Auto) 0.5 x10^3/uL (0.0-1.1) Eosinophils # (Auto) 0.0 x10^3/uL (0.0-0.7) Basophils # (Auto) 0.0 x10^3/uL (0.0-0.2) Segmented Neutrophils % 86 % (35-66) Band Neutrophils % 6 % (0-9) Lymphocytes % 2 % (24-48) Atypical Lymphocytes % (Manual) 1 % (0-0) Monocytes % 5 % (0-10) Toxic Granulation Slight Platelet Estimate Decreased (ADEQUATE) Giant Platelets Occ Sodium Level 136 mmol/L (136-145) Potassium Level 4.5 mmol/L (3.5-5.1) Chloride Level 96 mmol/L (98-107) Carbon Dioxide Level 32 mmol/L (21-32) Anion Gap 8 (6-14) Blood Urea Nitrogen 15 mg/dL (8-26) Creatinine 0.5 mg/dL (0.7-1.3) 0.5 mg/dL (0.7-1.3) Estimated GFR (Cockcroft-Gault) 164.4 164.4 BUN/Creatinine Ratio 30 (6-20) Glucose Level 101 mg/dL (70-99) Lactic Acid Level 0.8 mmol/L (0.4-2.0) Calcium Level 9.1 mg/dL (8.5-10.1) Total Bilirubin 0.6 mg/dL (0.2-1.0) Aspartate Amino Transf (AST/SGOT) 37 U/L (15-37) Alanine Aminotransferase (ALT/SGPT) 19 U/L (16-63) Alkaline Phosphatase 112 U/L (46-116) Troponin I Quantitative < 0.017 ng/mL (0.000-0.055) Total Protein 7.5 g/dL (6.4-8.2) Albumin 3.3 g/dL (3.4-5.0) Albumin/Globulin Ratio 0.8 (1.0-1.7) Urine Collection Type Unknown Urine Color Yellow Urine Clarity Clear Urine pH 6.5 Urine Specific [place] 1.015 Urine Protein Negative mg/dL (NEG-TRACE) Urine Glucose (UA) Negative mg/dL (NEG) Urine Ketones (Stick) Negative mg/dL (NEG) Urine Blood Negative (NEG) Urine Nitrite Negative (NEG) Urine Bilirubin Negative (NEG) Urine Urobilinogen Dipstick 1.0 mg/dL (0.2 mg/dL) Urine Leukocyte Esterase Negative (NEG) Urine RBC 0 /HPF (0-2) Urine WBC 0 /HPF (0-4) Urine Squamous Epithelial Cells Few /LPF Urine Bacteria 0 /HPF (0-FEW) Urine Mucus Slight /LPF Influenza Type A Antigen Negative (NEGATIVE) Influenza Type B Antigen Negative (NEGATIVE) Assessment/Plan Assessment/Plan Impression: Parkinson's, he is on pramipexole and carbidopa/ levodopa Diabetic neuropathy Possible dysphagia Possible pneumonia. Recommendations: As there is not much rigidity and there is no tremor, it is unlikely that the secondary symptoms will respond to higher doses of Parkinson's medications. Therefore, continue current doses. Rehabilitation modalities Swallow evaluation Treat possible pneumonia and other medical conditions. Thank you for letting me help with the patient's care. IGOR GARLAND MD May 13, 2018 10:38
[2018-05-13 11:00] VITALS: BP 110/80
[2018-05-13] MEDS ORDERED: BARIUM SULFATE 40% (APPLE) 148 GM PWD. PO ONE (11:15)
[2018-05-13] MEDS: IPRATRPIUM/ALBUTEROL 0.5/2.5MG 3 ML NEBU. NEB SCH ×3 (12:00→20:13)
[2018-05-13] MEDS ORDERED: TEMAZEPAM 7.5 MG CAPSULE PO PRN (12:00)
[2018-05-13] MEDS ORDERED: ACETAMINOPHEN/CODEINE 300/30MG TABLET. PO PRN (12:00)
[2018-05-13] MEDS ORDERED: ONDANSETRON ODT 4 MG TAB.RAPDIS. PO PRN (12:00)
[2018-05-13] MEDS ORDERED: ONDANSETRON PF 4 MG/2 ML VIAL. IV PRN (12:00)
[2018-05-13] MEDS ORDERED: ACETAMINOPHEN 500 MG TABLET PO PRN (12:00)
--- NOTE | 2018-05-13 12:23 | PDOC ---
PROGRESS NOTES Chief Complaint Chief Complaint Parkinson's, he is on pramipexole and carbidopa/ levodopa Diabetic neuropathy Possible dysphagia Possible pneumonia. History of Present Illness History of Present Illness He has no complaints Lately he has been on oxygen for the past 2-3 weeks at home Lives with the Known patient of Dr. marcial Kiran are barely visible For video swallow by MANAGER SPA later today On GI soft some Wheeziness? Plan: continue Requip and Sinemet PT OT Monitor that leukocytosis of 13 recheck labs tomorrow Being treated also for pneumonia Continue GI soft diet, aspiration and fall risk Appreciate informative note of neurology Add steroids if needed for the wheezing Vitals Vitals Vital Signs Date Time Temp Pulse Resp B/P (MAP) Pulse Ox O2 Delivery O2 Flow Rate FiO2 05/13/18 11:00 98.3 71 20 110/80 (90) 95 Nasal Cannula 3.0 98.3 Physical Exam General: Alert, Oriented X3, Cooperative, No acute distress Heart: Regular rate, Normal S1, Normal S2, No murmurs Lungs: Clear, Wheezing Abdomen: Normal bowel sounds, No tenderness Extremities: No clubbing, No cyanosis, No edema Skin: No rashes, No breakdown, No significant lesion Labs LABS Laboratory Tests Test 05/12/18 15:52 05/12/18 16:40 05/12/18 17:01 05/13/18 06:19 White Blood Count 13.0 x10^3/uL (4.0-11.0) Red Blood Count 5.15 x10^6/uL (4.30-5.70) Hemoglobin 14.3 g/dL (13.0-17.5) Hematocrit 43.9 % (39.0-53.0) Mean Corpuscular Volume 85 fL (79-100) Mean Corpuscular Hemoglobin 28 pg (25-35) Mean Corpuscular Hemoglobin Concent 33 g/dL (31-37) Red Cell Distribution Width 16.1 % (11.5-14.5) Platelet Count 109 x10^3/uL (140-400) Neutrophils (%) (Auto) 92 % (31-73) Lymphocytes (%) (Auto) 4 % (24-48) Monocytes (%) (Auto) 4 % (0-9) Eosinophils (%) (Auto) 0 % (0-3) Basophils (%) (Auto) 0 % (0-3) Neutrophils # (Auto) 12.0 x10^3uL (1.8-7.7) Lymphocytes # (Auto) 0.5 x10^3/uL (1.0-4.8) Monocytes # (Auto) 0.5 x10^3/uL (0.0-1.1) Eosinophils # (Auto) 0.0 x10^3/uL (0.0-0.7) Basophils # (Auto) 0.0 x10^3/uL (0.0-0.2) Segmented Neutrophils % 86 % (35-66) Band Neutrophils % 6 % (0-9) Lymphocytes % 2 % (24-48) Atypical Lymphocytes % (Manual) 1 % (0-0) Monocytes % 5 % (0-10) Toxic Granulation Slight Platelet Estimate Decreased (ADEQUATE) Giant Platelets Occ Sodium Level 136 mmol/L (136-145) Potassium Level 4.5 mmol/L (3.5-5.1) Chloride Level 96 mmol/L (98-107) Carbon Dioxide Level 32 mmol/L (21-32) Anion Gap 8 (6-14) Blood Urea Nitrogen 15 mg/dL (8-26) Creatinine 0.5 mg/dL (0.7-1.3) 0.5 mg/dL (0.7-1.3) Estimated GFR (Cockcroft-Gault) 164.4 164.4 BUN/Creatinine Ratio 30 (6-20) Glucose Level 101 mg/dL (70-99) Lactic Acid Level 0.8 mmol/L (0.4-2.0) Calcium Level 9.1 mg/dL (8.5-10.1) Total Bilirubin 0.6 mg/dL (0.2-1.0) Aspartate Amino Transf (AST/SGOT) 37 U/L (15-37) Alanine Aminotransferase (ALT/SGPT) 19 U/L (16-63) Alkaline Phosphatase 112 U/L (46-116) Troponin I Quantitative < 0.017 ng/mL (0.000-0.055) Total Protein 7.5 g/dL (6.4-8.2) Albumin 3.3 g/dL (3.4-5.0) Albumin/Globulin Ratio 0.8 (1.0-1.7) Urine Collection Type Unknown Urine Color Yellow Urine Clarity Clear Urine pH 6.5 Urine Specific [place] 1.015 Urine Protein Negative mg/dL (NEG-TRACE) Urine Glucose (UA) Negative mg/dL (NEG) Urine Ketones (Stick) Negative mg/dL (NEG) Urine Blood Negative (NEG) Urine Nitrite Negative (NEG) Urine Bilirubin Negative (NEG) Urine Urobilinogen Dipstick 1.0 mg/dL (0.2 mg/dL) Urine Leukocyte Esterase Negative (NEG) Urine RBC 0 /HPF (0-2) Urine WBC 0 /HPF (0-4) Urine Squamous Epithelial Cells Few /LPF Urine Bacteria 0 /HPF (0-FEW) Urine Mucus Slight /LPF Influenza Type A Antigen Negative (NEGATIVE) Influenza Type B Antigen Negative (NEGATIVE) Review of Systems Review of Systems A 14 point ROS was completed with the following noted as positive: Other systems reviewed and negative. \CONSTITUTIONAL: No fever or chills EYES: No recent changes SKIN: No rash or itching CARDIOVASCULAR: No chest pain, syncope, palpitations, or edema RESPIRATORY: No SOB or cough GASTROINTESTINAL: No nausea, vomiting or abdominal pain NEUROLOGICAL: No headaches or weakness ENDOCRINE: No cold or heat intolerance GENITOURINARY: No urgency or frequency of urination MUSCULOSKELETAL: No back pain or joint pain LYMPHATICS: No enlarged lymph nodes PSYCHIATRIC: No anxiety or depression Comment Review of Relevant I have reviewed the following items brett (where applicable) has been applied. Labs Laboratory Tests Test 05/12/18 15:52 05/12/18 16:40 05/12/18 17:01 05/13/18 06:19 White Blood Count 13.0 x10^3/uL (4.0-11.0) Red Blood Count 5.15 x10^6/uL (4.30-5.70) Hemoglobin 14.3 g/dL (13.0-17.5) Hematocrit 43.9 % (39.0-53.0) Mean Corpuscular Volume 85 fL (79-100) Mean Corpuscular Hemoglobin 28 pg (25-35) Mean Corpuscular Hemoglobin Concent 33 g/dL (31-37) Red Cell Distribution Width 16.1 % (11.5-14.5) Platelet Count 109 x10^3/uL (140-400) Neutrophils (%) (Auto) 92 % (31-73) Lymphocytes (%) (Auto) 4 % (24-48) Monocytes (%) (Auto) 4 % (0-9) Eosinophils (%) (Auto) 0 % (0-3) Basophils (%) (Auto) 0 % (0-3) Neutrophils # (Auto) 12.0 x10^3uL (1.8-7.7) Lymphocytes # (Auto) 0.5 x10^3/uL (1.0-4.8) Monocytes # (Auto) 0.5 x10^3/uL (0.0-1.1) Eosinophils # (Auto) 0.0 x10^3/uL (0.0-0.7) Basophils # (Auto) 0.0 x10^3/uL (0.0-0.2) Segmented Neutrophils % 86 % (35-66) Band Neutrophils % 6 % (0-9) Lymphocytes % 2 % (24-48) Atypical Lymphocytes % (Manual) 1 % (0-0) Monocytes % 5 % (0-10) Toxic Granulation Slight Platelet Estimate Decreased (ADEQUATE) Giant Platelets Occ Sodium Level 136 mmol/L (136-145) Potassium Level 4.5 mmol/L (3.5-5.1) Chloride Level 96 mmol/L (98-107) Carbon Dioxide Level 32 mmol/L (21-32) Anion Gap 8 (6-14) Blood Urea Nitrogen 15 mg/dL (8-26) Creatinine 0.5 mg/dL (0.7-1.3) 0.5 mg/dL (0.7-1.3) Estimated GFR (Cockcroft-Gault) 164.4 164.4 BUN/Creatinine Ratio 30 (6-20) Glucose Level 101 mg/dL (70-99) Lactic Acid Level 0.8 mmol/L (0.4-2.0) Calcium Level 9.1 mg/dL (8.5-10.1) Total Bilirubin 0.6 mg/dL (0.2-1.0) Aspartate Amino Transf (AST/SGOT) 37 U/L (15-37) Alanine Aminotransferase (ALT/SGPT) 19 U/L (16-63) Alkaline Phosphatase 112 U/L (46-116) Troponin I Quantitative < 0.017 ng/mL (0.000-0.055) Total Protein 7.5 g/dL (6.4-8.2) Albumin 3.3 g/dL (3.4-5.0) Albumin/Globulin Ratio 0.8 (1.0-1.7) Urine Collection Type Unknown Urine Color Yellow Urine Clarity Clear Urine pH 6.5 Urine Specific [place] 1.015 Urine Protein Negative mg/dL (NEG-TRACE) Urine Glucose (UA) Negative mg/dL (NEG) Urine Ketones (Stick) Negative mg/dL (NEG) Urine Blood Negative (NEG) Urine Nitrite Negative (NEG) Urine Bilirubin Negative (NEG) Urine Urobilinogen Dipstick 1.0 mg/dL (0.2 mg/dL) Urine Leukocyte Esterase Negative (NEG) Urine RBC 0 /HPF (0-2) Urine WBC 0 /HPF (0-4) Urine Squamous Epithelial Cells Few /LPF Urine Bacteria 0 /HPF (0-FEW) Urine Mucus Slight /LPF Influenza Type A Antigen Negative (NEGATIVE) Influenza Type B Antigen Negative (NEGATIVE) Laboratory Tests Test 05/12/18 15:52 05/12/18 16:40 05/12/18 17:01 05/13/18 06:19 White Blood Count 13.0 x10^3/uL (4.0-11.0) Red Blood Count 5.15 x10^6/uL (4.30-5.70) Hemoglobin 14.3 g/dL (13.0-17.5) Hematocrit 43.9 % (39.0-53.0) Mean Corpuscular Volume 85 fL (79-100) Mean Corpuscular Hemoglobin 28 pg (25-35) Mean Corpuscular Hemoglobin Concent 33 g/dL (31-37) Red Cell Distribution Width 16.1 % (11.5-14.5) Platelet Count 109 x10^3/uL (140-400) Neutrophils (%) (Auto) 92 % (31-73) Lymphocytes (%) (Auto) 4 % (24-48) Monocytes (%) (Auto) 4 % (0-9) Eosinophils (%) (Auto) 0 % (0-3) Basophils (%) (Auto) 0 % (0-3) Neutrophils # (Auto) 12.0 x10^3uL (1.8-7.7) Lymphocytes # (Auto) 0.5 x10^3/uL (1.0-4.8) Monocytes # (Auto) 0.5 x10^3/uL (0.0-1.1) Eosinophils # (Auto) 0.0 x10^3/uL (0.0-0.7) Basophils # (Auto) 0.0 x10^3/uL (0.0-0.2) Segmented Neutrophils % 86 % (35-66) Band Neutrophils % 6 % (0-9) Lymphocytes % 2 % (24-48) Atypical Lymphocytes % (Manual) 1 % (0-0) Monocytes % 5 % (0-10) Toxic Granulation Slight Platelet Estimate Decreased (ADEQUATE) Giant Platelets Occ Sodium Level 136 mmol/L (136-145) Potassium Level 4.5 mmol/L (3.5-5.1) Chloride Level 96 mmol/L (98-107) Carbon Dioxide Level 32 mmol/L (21-32) Anion Gap 8 (6-14) Blood Urea Nitrogen 15 mg/dL (8-26) Creatinine 0.5 mg/dL (0.7-1.3) 0.5 mg/dL (0.7-1.3) Estimated GFR (Cockcroft-Gault) 164.4 164.4 BUN/Creatinine Ratio 30 (6-20) Glucose Level 101 mg/dL (70-99) Lactic Acid Level 0.8 mmol/L (0.4-2.0) Calcium Level 9.1 mg/dL (8.5-10.1) Total Bilirubin 0.6 mg/dL (0.2-1.0) Aspartate Amino Transf (AST/SGOT) 37 U/L (15-37) Alanine Aminotransferase (ALT/SGPT) 19 U/L (16-63) Alkaline Phosphatase 112 U/L (46-116) Troponin I Quantitative < 0.017 ng/mL (0.000-0.055) Total Protein 7.5 g/dL (6.4-8.2) Albumin 3.3 g/dL (3.4-5.0) Albumin/Globulin Ratio 0.8 (1.0-1.7) Urine Collection Type Unknown Urine Color Yellow Urine Clarity Clear Urine pH 6.5 Urine Specific [place] 1.015 Urine Protein Negative mg/dL (NEG-TRACE) Urine Glucose (UA) Negative mg/dL (NEG) Urine Ketones (Stick) Negative mg/dL (NEG) Urine Blood Negative (NEG) Urine Nitrite Negative (NEG) Urine Bilirubin Negative (NEG) Urine Urobilinogen Dipstick 1.0 mg/dL (0.2 mg/dL) Urine Leukocyte Esterase Negative (NEG) Urine RBC 0 /HPF (0-2) Urine WBC 0 /HPF (0-4) Urine Squamous Epithelial Cells Few /LPF Urine Bacteria 0 /HPF (0-FEW) Urine Mucus Slight /LPF Influenza Type A Antigen Negative (NEGATIVE) Influenza Type B Antigen Negative (NEGATIVE) Medications Current Medications Sodium Chloride 500 ml @ 500 mls/hr 1X ONCE IV Last administered on at 16:05; Start 05/12/18 at 15:30; Stop 05/12/18 at 16:29; Status DC Vancomycin HCl (Vanco Per Pharmacy) 1 each PRN DAILY PRN MC SEE COMMENTS Last administered on 05/12/18at 19:21; Start 05/12/18 at 17:00 Levofloxacin/ Dextrose (Levaquin Per Pharmacy) 1 each PRN DAILY PRN MC SEE COMMENTS; Start 05/12/18 at 17:00 Levofloxacin/ Dextrose 150 ml @ 100 mls/hr 1X ONCE IV Last administered on at 17:30; Start 05/12/18 at 17:00; Stop 05/12/18 at 18:29; Status DC Vancomycin HCl 2 gm/Sodium Chloride 500 ml @ 250 mls/hr 1X ONCE IV Last administered on 05/12/18at 19:12; Start 05/12/18 at 18:00; Stop 05/12/18 at 19:59 ; Status DC Levofloxacin/ Dextrose 150 ml @ 100 mls/hr Q24H IV ; Start 05/13/18 at 17:00 Vancomycin HCl 1.75 gm/Sodium Chloride 500 ml @ 250 mls/hr Q12H IV Last administered on 05/13/18at 06:06; Start 05/13/18 at 07:00 Vancomycin HCl (Vancomycin Trough Level) 1 each 1X ONCE MC ; Start 05/14/18 at 06:30; Stop 05/14/18 at 06:31 Lactobacillus Rhamnosus (Culturelle) 1 cap BID PO Last administered on at 09:37; Start 05/12/18 at 21:00 Carbidopa/Levodopa (Sinemet 25/100) 1 tab QID PO Last administered on at 09:36; Start 05/12/18 at 22:30 Cetirizine HCl (ZyrTEC) 10 mg DAILY PO Last administered on 05/13/18at 09:37; Start 05/13/18 at 09:00 Docusate Sodium (Colace) 100 mg DAILY PO ; Start 05/13/18 at 09:00; Stop at 09:00; Status DC Docusate Sodium (Colace) 100 mg BID PO Last administered on 05/13/18at 09:37; Start 05/13/18 at 09:00 Ipratropium [place] (Atrovent) 0.5 mg RTQID NEB Last administered on 05/13/18at 07:30; Start 05/13/18 at 08:00; Stop 05/13/18 at 12:03; Status DC Miconazole Nitrate (Monistat-Derm) 1 kaylan PRN BID PRN TP RASH; Start 05/12/18 at 22:15 Nystatin (Nystop) 1 kaylan BID TP Last administered on 05/12/18at 22:28; Start at 09:00 Pramipexole Dihydrochloride (miraPEX) 1.5 mg [id number] PO Last administered on at 09:37; Start 05/12/18 at 22:30 Barium Sulfate (Varibar Thin Liquid Apple) 148 gm 1X ONCE PO ; Start 05/13/18 at 11:15; Stop 05/13/18 at 11:16; Status DC Acetaminophen (Tylenol) 500 mg PRN Q6HRS PRN PO MILD PAIN / TEMP; Start at 12:00 Acetaminophen/ Codeine Phosphate (Tylenol #3) 1 tab PRN Q6HRS PRN PO MODERATE PAIN; Start 05/13/18 at 12:00 Albuterol/ Ipratropium (Duoneb) 3 ml RTQID NEB ; Start 05/13/18 at 12:00 Temazepam (Restoril) 7.5 mg PRN QHS PRN PO INSOMNIA; Start 05/13/18 at 12:00 Ondansetron HCl (Zofran) 4 mg PRN Q6HRS PRN IV NAUSEA/VOMITING; Start 05/13/18 at 12:00 Ondansetron HCl (Zofran Odt) 4 mg PRN Q6HRS PRN PO NAUSEA/VOMITING; Start 05/13 at 12:00 Furosemide (Lasix) 40 mg DAILY PO ; Start 05/13/18 at 13:00 Vitamin D (Vitamin D3) 5,000 unit DAILY PO ; Start 05/13/18 at 13:00 Multivitamins (Thera M Plus) 1 tab DAILY PO ; Start 05/13/18 at 13:00 Potassium Chloride (Klor-Con) 20 meq DAILYWBKFT PO ; Start 05/13/18 at 13:00 Active Scripts Active Colace (Docusate Sodium) 100 Mg Capsule 100 Mg PO BID Reported Elizabeth Antifungal (Miconazole Nitrate) 142 Gm Cream..g. 142 Gm TP BID PRN Nystatin 15 Gm Powder 1 Kaylan TP BID Colace (Docusate Sodium) 100 Mg Capsule 1 Cap PO DAILY Vitamin D (Cholecalciferol (Vitamin D3)) 2,000 Unit Capsule 5,000 Unit PO DAILY Centrum Silver Tablet (Multivits-Min/Fa/Lycopene/Lut) 1 Each Tablet 1 Each PO DAILY Lasix (Furosemide) 40 Mg Tablet 1 Tab PO DAILY Potassium Chloride 20 Meq Tablet.er 20 Meq PO DAILY Ipratropium [place] 0.2 Mg/1 Ml Solution 0.5 Mg NEB QID Vitamin D (Cholecalciferol (Vitamin D3)) 1,000 Unit Capsule 1 Cap PO DAILY Mirapex (Pramipexole Di-Hcl) 0.25 Mg Tablet 1.5 Mg PO TID Sinemet 25-100 Mg Tablet (Carbidopa/Levodopa) 1 Each Tablet 1 Tab PO QID 30 Days take 1 tablet four times a day, add an additional tablet to the afternoon dose Zyrtec (Cetirizine Hcl) 10 Mg Tablet 1 Tab PO DAILY Vitals/I & O Vital Sign - Last 24 Hours 05/12/18 05/12/18 05/12/18 05/12/18 14:20 15:06 15:36 16:56 Temp 96.4 96.4 Pulse 57 54 56 64 Resp 25 B/P (MAP) 145/66 (92) Pulse Ox 95 95 93 94 O2 Delivery Nasal Cannula O2 Flow Rate 2.0 05/12/18 05/12/18 05/12/18 05/12/18 17:06 17:36 18:06 18:36 Pulse 62 64 66 62 Pulse Ox 94 93 93 93 05/12/18 05/12/18 05/12/18 05/12/18 19:06 20:00 20:00 23:25 Temp 95.7 97.4 95.7 97.4 Pulse 78 63 85 Resp 20 16 B/P (MAP) 123/78 (93) 117/66 (83) Pulse Ox 62 91 92 O2 Delivery Nasal Cannula Nasal Cannula Nasal Cannula O2 Flow Rate 2.0 2.0 2.0 05/13/18 05/13/18 05/13/18 05/13/18 03:25 07:00 08:00 08:37 Temp 97.1 98.0 97.1 98.0 Pulse 80 78 Resp 22 20 B/P (MAP) 135/76 (95) 126/71 (89) Pulse Ox 91 96 94 O2 Delivery Nasal Cannula Nasal Cannula Nasal Cannula Nasal Cannula O2 Flow Rate 2.0 2.0 2.0 3.0 05/13/18 11:00 Temp 98.3 98.3 Pulse 71 Resp 20 B/P (MAP) 110/80 (90) Pulse Ox 95 O2 Delivery Nasal Cannula O2 Flow Rate 3.0 Intake and Output 05/12/18 05/12/18 05/13/18 14:59 22:59 06:59 Intake Total 75 ml 440 ml Output Total 500 ml Balance 75 ml -60 ml DARELL CORNELL MD May 13, 2018 12:23
[2018-05-13] MEDS: predniSONE 20 MG TABLET PO ONE ×2 (12:30→12:39)
[2018-05-13] MEDS: CHOLECALCIFEROL (VITAMIN D3) 5,000 UNIT CAPSULE PO SCH (12:38)
[2018-05-13] MEDS: FUROSEMIDE 40 MG TABLET. PO SCH (12:39)
[2018-05-13] MEDS: MULTIVITAMIN with MINERAL TABLET. PO SCH (12:39)
[2018-05-13] MEDS: POTASSIUM CHLORIDE 20 MEQ TABLET.ER. PO SCH (12:39)
--- NOTE | 2018-05-13 13:53 | RAD ---
Video dysphasia study, 05/13/2018: History: Pneumonia, dysphasia, possible aspiration The swallowing mechanism was examined fluoroscopically in the lateral projection with the patient ingested a variety of food materials mixed with barium. 3.3 minutes of fluoroscopy time was utilized. One video fluoroscopic loop was recorded by a member of the speech Department. The patient demonstrated good oral control of the barium materials. There was a moderate delay in initiation of pharyngeal peristalsis with the liquid materials. This resulted in deep laryngeal penetration of the thin liquid and the nectar consistency liquid, down to the level of the vocal cords. When the honey thickened material was utilized, the laryngeal penetration abated. The majority of the thickened barium bolus passed normally through the cervical esophagus. The patient ingested the barium coated solids without laryngeal penetration. There was mild laryngeal penetration when ingesting the mixed consistency solid and liquid. IMPRESSION: Disordered swallowing mechanism with deep laryngeal penetration of the thin liquids, which abated with the honey thickened material.
[2018-05-13] MEDS: VANCOMYCIN PER PHARMACY MC PRN (14:24)
--- NOTE | 2018-05-13 14:36 | NUR ---
SW following pt for anticipated dc needs. Chart reviewed and ISAIAH RN. PT/OT recommends SNU. Spoke with pt in room and pt wants to go home with home health. Pt reports he was with [facility] but needs a ST certified in [place]. SW phoned [facility] and they can provide ST and take pt's insurance. Pt aware he will be switching home health to [facility] upon dc. ISAIAH MON.
[2018-05-13 15:00] VITALS: BP 110/57
--- NOTE | 2018-05-13 16:28 | PDOC ---
PULMONARY PROGRESS NOTES Vitals Vital Signs Date Time Temp Pulse Resp B/P (MAP) Pulse Ox O2 Delivery O2 Flow Rate FiO2 05/13/18 15:43 Nasal Cannula 3.0 05/13/18 15:00 98.3 75 20 110/57 (74) 93 98.3 General: Alert, No acute distress HEENT: Other Lungs: Clear, Wheezing Cardiovascular: S1, S2 Abdomen: Soft, Non-tender Extremities: Other Labs Laboratory Tests Test 05/12/18 15:52 05/12/18 16:40 05/12/18 17:01 05/13/18 06:19 White Blood Count 13.0 x10^3/uL (4.0-11.0) Red Blood Count 5.15 x10^6/uL (4.30-5.70) Hemoglobin 14.3 g/dL (13.0-17.5) Hematocrit 43.9 % (39.0-53.0) Mean Corpuscular Volume 85 fL (79-100) Mean Corpuscular Hemoglobin 28 pg (25-35) Mean Corpuscular Hemoglobin Concent 33 g/dL (31-37) Red Cell Distribution Width 16.1 % (11.5-14.5) Platelet Count 109 x10^3/uL (140-400) Neutrophils (%) (Auto) 92 % (31-73) Lymphocytes (%) (Auto) 4 % (24-48) Monocytes (%) (Auto) 4 % (0-9) Eosinophils (%) (Auto) 0 % (0-3) Basophils (%) (Auto) 0 % (0-3) Neutrophils # (Auto) 12.0 x10^3uL (1.8-7.7) Lymphocytes # (Auto) 0.5 x10^3/uL (1.0-4.8) Monocytes # (Auto) 0.5 x10^3/uL (0.0-1.1) Eosinophils # (Auto) 0.0 x10^3/uL (0.0-0.7) Basophils # (Auto) 0.0 x10^3/uL (0.0-0.2) Segmented Neutrophils % 86 % (35-66) Band Neutrophils % 6 % (0-9) Lymphocytes % 2 % (24-48) Atypical Lymphocytes % (Manual) 1 % (0-0) Monocytes % 5 % (0-10) Toxic Granulation Slight Platelet Estimate Decreased (ADEQUATE) Giant Platelets Occ Sodium Level 136 mmol/L (136-145) Potassium Level 4.5 mmol/L (3.5-5.1) Chloride Level 96 mmol/L (98-107) Carbon Dioxide Level 32 mmol/L (21-32) Anion Gap 8 (6-14) Blood Urea Nitrogen 15 mg/dL (8-26) Creatinine 0.5 mg/dL (0.7-1.3) 0.5 mg/dL (0.7-1.3) Estimated GFR (Cockcroft-Gault) 164.4 164.4 BUN/Creatinine Ratio 30 (6-20) Glucose Level 101 mg/dL (70-99) Lactic Acid Level 0.8 mmol/L (0.4-2.0) Calcium Level 9.1 mg/dL (8.5-10.1) Total Bilirubin 0.6 mg/dL (0.2-1.0) Aspartate Amino Transf (AST/SGOT) 37 U/L (15-37) Alanine Aminotransferase (ALT/SGPT) 19 U/L (16-63) Alkaline Phosphatase 112 U/L (46-116) Troponin I Quantitative < 0.017 ng/mL (0.000-0.055) Total Protein 7.5 g/dL (6.4-8.2) Albumin 3.3 g/dL (3.4-5.0) Albumin/Globulin Ratio 0.8 (1.0-1.7) Urine Collection Type Unknown Urine Color Yellow Urine Clarity Clear Urine pH 6.5 Urine Specific [place] 1.015 Urine Protein Negative mg/dL (NEG-TRACE) Urine Glucose (UA) Negative mg/dL (NEG) Urine Ketones (Stick) Negative mg/dL (NEG) Urine Blood Negative (NEG) Urine Nitrite Negative (NEG) Urine Bilirubin Negative (NEG) Urine Urobilinogen Dipstick 1.0 mg/dL (0.2 mg/dL) Urine Leukocyte Esterase Negative (NEG) Urine RBC 0 /HPF (0-2) Urine WBC 0 /HPF (0-4) Urine Squamous Epithelial Cells Few /LPF Urine Bacteria 0 /HPF (0-FEW) Urine Mucus Slight /LPF Influenza Type A Antigen Negative (NEGATIVE) Influenza Type B Antigen Negative (NEGATIVE) Laboratory Tests Test 05/12/18 16:40 05/12/18 17:01 05/13/18 06:19 Urine Collection Type Unknown Urine Color Yellow Urine Clarity Clear Urine pH 6.5 Urine Specific [place] 1.015 Urine Protein Negative mg/dL (NEG-TRACE) Urine Glucose (UA) Negative mg/dL (NEG) Urine Ketones (Stick) Negative mg/dL (NEG) Urine Blood Negative (NEG) Urine Nitrite Negative (NEG) Urine Bilirubin Negative (NEG) Urine Urobilinogen Dipstick 1.0 mg/dL (0.2 mg/dL) Urine Leukocyte Esterase Negative (NEG) Urine RBC 0 /HPF (0-2) Urine WBC 0 /HPF (0-4) Urine Squamous Epithelial Cells Few /LPF Urine Bacteria 0 /HPF (0-FEW) Urine Mucus Slight /LPF Influenza Type A Antigen Negative (NEGATIVE) Influenza Type B Antigen Negative (NEGATIVE) Creatinine 0.5 mg/dL (0.7-1.3) Estimated GFR (Cockcroft-Gault) 164.4 Medications Active Scripts Medications Dose Route/Sig Max Daily Dose Days Date Category Dose Instructions Elizabeth Antifungal (Miconazole Nitrate) 142 Gm Cream..g. 142 Gm TP BID PRN 05/12/18 Reported Nystatin 15 Gm Powder 1 Kaylan TP BID 05/12/18 Reported Colace (Docusate Sodium) 100 Mg Capsule 1 Cap PO DAILY 04/13/18 Reported Vitamin D (Cholecalciferol (Vitamin D3)) 2,000 Unit Capsule 5,000 Unit PO DAILY 04/13/18 Reported Centrum Silver Tablet (Multivits-Min/Fa/Lycopene/Lut) 1 Each Tablet 1 Each PO DAILY 04/13/18 Reported Lasix (Furosemide) 40 Mg Tablet 1 Tab PO DAILY 04/13/18 Reported Potassium Chloride 20 Meq Tablet.er 20 Meq PO DAILY 04/13/18 Reported Ipratropium [place] 0.2 Mg/1 Ml Solution 0.5 Mg NEB QID 04/13/18 Reported Vitamin D (Cholecalciferol (Vitamin D3)) 1,000 Unit Capsule 1 Cap PO DAILY 04/13/18 Reported Mirapex (Pramipexole Di-Hcl) 0.25 Mg Tablet 1.5 Mg PO TID 04/13/18 Reported Sinemet 25-100 Mg Tablet (Carbidopa/Levodopa) 1 Each Tablet 1 Tab PO QID 30 07/17/15 Reported take 1 tablet four times a day, add an additional tablet to the afternoon dose Zyrtec (Cetirizine Hcl) 10 Mg Tablet 1 Tab PO DAILY 03/20/15 Reported Colace (Docusate Sodium) 100 Mg Capsule 100 Mg PO BID 04/06/14 Rx Impression . FULL NOTE DICTATED CHRONIC ASPIRATION ABNORMAL CXR YESENIA GARCIAS MD May 13, 2018 16:28
[2018-05-13 19:20] VITALS: BP 127/80
[2018-05-13] MEDS: NYSTATIN TOPICAL POWDER 15GM BOTTLE. TP SCH (21:27)
[2018-05-13 23:20] VITALS: BP 140/74
[2018-05-14 03:20] VITALS: BP 159/85
[2018-05-14 07:03] LABS: VANC TR 16.2 mcg/mL (10.0-20.0)
[2018-05-14 07:30] VITALS: BP 144/76
[2018-05-14] MEDS: VANCOMYCIN 1.75 GM in IV NORMAL SALINE 500ML BAG 500 ML IV SCH (07:32)
[2018-05-14] MEDS: VANCOMYCIN PER PHARMACY MC PRN (07:54)
[2018-05-14] MEDS: IPRATRPIUM/ALBUTEROL 0.5/2.5MG 3 ML NEBU. NEB SCH ×4 (07:57→20:17)
[2018-05-14] MEDS: NYSTATIN TOPICAL POWDER 15GM BOTTLE. TP SCH ×2 (09:00→21:21)
[2018-05-14] MEDS ORDERED: predniSONE 20 MG TABLET PO SCH (09:00)
[2018-05-14] MEDS: LACTOBACILLUS RHAMNOSUS GG 1 CAPSULE. PO SCH ×2 (09:00→21:20)
--- NOTE | 2018-05-14 09:08 | PDOC ---
PULMONARY PROGRESS NOTES Subjective on 02, sob better, has cough, no pain, on home o2 Vitals Vital Signs Date Time Temp Pulse Resp B/P (MAP) Pulse Ox O2 Delivery O2 Flow Rate FiO2 05/14/18 07:57 Nasal Cannula 3.0 05/14/18 03:20 72 20 159/85 (109) 90 05/13/18 19:20 96.0 96.0 General: Alert, No acute distress HEENT: Other (nc at perrl) Lungs: Crackles Cardiovascular: S1, S2 Abdomen: Soft, Non-tender Neuro Exam: Alert Extremities: Other Skin: Warm Labs Laboratory Tests Test 05/12/18 15:52 05/12/18 16:40 05/12/18 17:01 05/13/18 06:19 White Blood Count 13.0 x10^3/uL (4.0-11.0) Red Blood Count 5.15 x10^6/uL (4.30-5.70) Hemoglobin 14.3 g/dL (13.0-17.5) Hematocrit 43.9 % (39.0-53.0) Mean Corpuscular Volume 85 fL (79-100) Mean Corpuscular Hemoglobin 28 pg (25-35) Mean Corpuscular Hemoglobin Concent 33 g/dL (31-37) Red Cell Distribution Width 16.1 % (11.5-14.5) Platelet Count 109 x10^3/uL (140-400) Neutrophils (%) (Auto) 92 % (31-73) Lymphocytes (%) (Auto) 4 % (24-48) Monocytes (%) (Auto) 4 % (0-9) Eosinophils (%) (Auto) 0 % (0-3) Basophils (%) (Auto) 0 % (0-3) Neutrophils # (Auto) 12.0 x10^3uL (1.8-7.7) Lymphocytes # (Auto) 0.5 x10^3/uL (1.0-4.8) Monocytes # (Auto) 0.5 x10^3/uL (0.0-1.1) Eosinophils # (Auto) 0.0 x10^3/uL (0.0-0.7) Basophils # (Auto) 0.0 x10^3/uL (0.0-0.2) Segmented Neutrophils % 86 % (35-66) Band Neutrophils % 6 % (0-9) Lymphocytes % 2 % (24-48) Atypical Lymphocytes % (Manual) 1 % (0-0) Monocytes % 5 % (0-10) Toxic Granulation Slight Platelet Estimate Decreased (ADEQUATE) Giant Platelets Occ Sodium Level 136 mmol/L (136-145) Potassium Level 4.5 mmol/L (3.5-5.1) Chloride Level 96 mmol/L (98-107) Carbon Dioxide Level 32 mmol/L (21-32) Anion Gap 8 (6-14) Blood Urea Nitrogen 15 mg/dL (8-26) Creatinine 0.5 mg/dL (0.7-1.3) 0.5 mg/dL (0.7-1.3) Estimated GFR (Cockcroft-Gault) 164.4 164.4 BUN/Creatinine Ratio 30 (6-20) Glucose Level 101 mg/dL (70-99) Lactic Acid Level 0.8 mmol/L (0.4-2.0) Calcium Level 9.1 mg/dL (8.5-10.1) Total Bilirubin 0.6 mg/dL (0.2-1.0) Aspartate Amino Transf (AST/SGOT) 37 U/L (15-37) Alanine Aminotransferase (ALT/SGPT) 19 U/L (16-63) Alkaline Phosphatase 112 U/L (46-116) Troponin I Quantitative < 0.017 ng/mL (0.000-0.055) Total Protein 7.5 g/dL (6.4-8.2) Albumin 3.3 g/dL (3.4-5.0) Albumin/Globulin Ratio 0.8 (1.0-1.7) Urine Collection Type Unknown Urine Color Yellow Urine Clarity Clear Urine pH 6.5 Urine Specific [place] 1.015 Urine Protein Negative mg/dL (NEG-TRACE) Urine Glucose (UA) Negative mg/dL (NEG) Urine Ketones (Stick) Negative mg/dL (NEG) Urine Blood Negative (NEG) Urine Nitrite Negative (NEG) Urine Bilirubin Negative (NEG) Urine Urobilinogen Dipstick 1.0 mg/dL (0.2 mg/dL) Urine Leukocyte Esterase Negative (NEG) Urine RBC 0 /HPF (0-2) Urine WBC 0 /HPF (0-4) Urine Squamous Epithelial Cells Few /LPF Urine Bacteria 0 /HPF (0-FEW) Urine Mucus Slight /LPF Influenza Type A Antigen Negative (NEGATIVE) Influenza Type B Antigen Negative (NEGATIVE) Test 05/14/18 06:30 Vancomycin Level Trough 16.2 mcg/mL (10.0-20.0) Vancomycin Last Dose Date 05/13/18 Vancomycin Last Dose Time 1900 Laboratory Tests Test 05/14/18 06:30 Vancomycin Level Trough 16.2 mcg/mL (10.0-20.0) Vancomycin Last Dose Date 05/13/18 Vancomycin Last Dose Time 1900 Medications Active Scripts Medications Dose Route/Sig Max Daily Dose Days Date Category Dose Instructions Elizabeth Antifungal (Miconazole Nitrate) 142 Gm Cream..g. 142 Gm TP BID PRN 05/12/18 Reported Nystatin 15 Gm Powder 1 Kaylan TP BID 05/12/18 Reported Colace (Docusate Sodium) 100 Mg Capsule 1 Cap PO DAILY 04/13/18 Reported Vitamin D (Cholecalciferol (Vitamin D3)) 2,000 Unit Capsule 5,000 Unit PO DAILY 04/13/18 Reported Centrum Silver Tablet (Multivits-Min/Fa/Lycopene/Lut) 1 Each Tablet 1 Each PO DAILY 04/13/18 Reported Lasix (Furosemide) 40 Mg Tablet 1 Tab PO DAILY 04/13/18 Reported Potassium Chloride 20 Meq Tablet.er 20 Meq PO DAILY 04/13/18 Reported Ipratropium [place] 0.2 Mg/1 Ml Solution 0.5 Mg NEB QID 04/13/18 Reported Vitamin D (Cholecalciferol (Vitamin D3)) 1,000 Unit Capsule 1 Cap PO DAILY 04/13/18 Reported Mirapex (Pramipexole Di-Hcl) 0.25 Mg Tablet 1.5 Mg PO TID 04/13/18 Reported Sinemet 25-100 Mg Tablet (Carbidopa/Levodopa) 1 Each Tablet 1 Tab PO QID 30 07/17/15 Reported take 1 tablet four times a day, add an additional tablet to the afternoon dose Zyrtec (Cetirizine Hcl) 10 Mg Tablet 1 Tab PO DAILY 03/20/15 Reported Colace (Docusate Sodium) 100 Mg Capsule 100 Mg PO BID 04/06/14 Rx Impression . IMPRESSION: 1. Aspiration pneumonia. 2. Positive video dysphagia as indicated above. 3. Persistent bilateral pulmonary infiltrates related to chronic aspiration. 4. History of chronic respiratory failure. As indicated above, the patient was hospitalized here, treated for acute respiratory distress syndrome, underwent tracheotomy and eventually was decannulated. 5. Parkinsonism. 6. Diabetic neuropathy. 7. Generalized weakness. 8. Toxic metabolic encephalopathy present upon admission, improved. Plan . PLAN: 1. Recommend vancomycin and Levaquin. 2. The patient is status post bronchoscopy and BAL as an outpatient. Cultures at that time were negative. 2. Follow speech therapist's recommendation for diet. 3. Continue other medication. 4. Continue oxygen supplementation. 02 titration. BD elevate HOB discussed w pt JINA SOMERS MD May 14, 2018 09:08
[2018-05-14] MEDS: MULTIVITAMIN with MINERAL TABLET. PO SCH (09:15)
[2018-05-14] MEDS: CHOLECALCIFEROL (VITAMIN D3) 5,000 UNIT CAPSULE PO SCH (09:15)
[2018-05-14] MEDS: DOCUSATE SODIUM 100 MG CAPSULE. PO SCH ×2 (09:15→21:20)
[2018-05-14] MEDS: CETIRIZINE HCL 10 MG TABLET. PO SCH (09:15)
[2018-05-14] MEDS: PRAMIPEXOLE 1 MG TABLET. PO SCH ×3 (09:16→21:20)
[2018-05-14] MEDS: POTASSIUM CHLORIDE 20 MEQ TABLET.ER. PO SCH (09:16)
[2018-05-14] MEDS: CARBIDOPA/LEVODOPA 25/100MG TABLET PO SCH ×4 (09:16→21:20)
[2018-05-14] MEDS: FUROSEMIDE 40 MG TABLET. PO SCH (09:16)
--- NOTE | 2018-05-14 09:42 | CONS ---
DATE OF CONSULTATION: 05/13/2018 ATTENDING PHYSICIAN: Dr. Neal. REASON FOR CONSULTATION: The patient seen in pulmonary consultation at the request of Dr. Neal for abnormal chest x-ray. HISTORY OF PRESENT ILLNESS: The patient is a well-known patient to me from outpatient department. He was actually hospitalized some time ago with ARDS, respiratory failure requiring tracheotomy, [facility] He was discharged home, he had persistent infiltrates on x-ray. The patient underwent bronchoscopy to rule out the possibility of an atypical infection. All cultures were negative. 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 I was likewise concerned about the possibility of chronic aspiration. He was referred to outpatient department for this, where he had dysphagia study, unfortunately they were unable to complete study as a consequence of the patient receiving speech therapy at home with home health. The patient was taken off of prednisone for profound hypoxemia and possible altered mental status. His also reported increased blood pressure. He was orthostatic hypotensive and hypothermic. Also had some hallucinations. The patient presented with the above complaints and was admitted. I was asked to see him in consultation. He had a repeat chest x-ray, revealing evidence of pulmonary vascular congestion, left basilar consolidation. The patient also was seen by speech therapist today, underwent video dysphagia study, which showed disorder swallowing mechanism with deep laryngeal penetration of thin liquids, abated with honey-thickened material. The patient is currently awake, alert, following commands. He complains of a cough, mostly productive of some discolored sputum. Otherwise, he denies any fever, chills, nausea, vomiting, diarrhea. He appears to be pretty much neurologically clear. He is currently on 3 liters of oxygen at home. PAST MEDICAL HISTORY: 1. As indicated above, he has had previous hospitalizations here at [facility] for respiratory failure, requiring mechanical support, tracheostomy. He was eventually decannulated. He was treated for ARDS. 2. Parkinsonism. 3. Type 2 diabetes. 4. Chronic neck pain. 5. History of pancreatitis. 6. History of bradycardia. 7. History of thrombocytopenia. PAST SURGICAL HISTORY: He has had previous surgical intervention for his spinal stenosis. He had right hip fracture, underwent right hemiarthroplasty on 07/17/2015. REVIEW OF SYSTEMS: CONSTITUTIONAL: Subjective fever. EYES: No change in visual acuity. HEENT: No nasal congestion or sore throat. RESPIRATORY: As indicated above. CARDIOVASCULAR: No chest pain. No pressure. GASTROINTESTINAL: No nausea, vomiting, diarrhea. Some dysphagia. GENITOURINARY: No dysuria or frequency. MUSCULOSKELETAL: Chronic pain. No localized muscle aches or joint pains. SKIN: No new skin rashes. NEUROLOGIC: No headaches, diplopia or blurred vision. ALLERGIES: Listed to AUGMENTIN, IBUPROFEN, MEPERIDINE, PROPOXYPHENE, and ASPIRIN. CURRENT MEDICATION: List was reviewed. HOME MEDICATIONS: List was likewise reviewed. SOCIAL HISTORY: He is currently not smoking. PHYSICAL EXAMINATION: VITAL SIGNS: On examination, the patient was actually awake, alert, following commands. Since admission, he has been afebrile. He is currently on 2 liters oxygen supplementation. HEENT: Eyes: His sclerae were nonicteric. NECK: Jugular venous distention was not elevated. No lymphadenopathy. CHEST: Full expansion. LUNGS: Scattered rhonchi, no wheezes. CARDIOVASCULAR: Regular rate and rhythm with S1, S2, no S3. ABDOMEN: Soft, nontender, nondistended. EXTREMITIES: No clubbing, cyanosis, some edema. NEUROLOGIC: The patient was awake, alert, following commands. A detailed neuro exam was not performed. LABORATORY DATA: Reviewed. Serology was negative for influenza. White count was elevated. Hemoglobin and hematocrit were noted. Electrolytes were noted. BUN and creatinine were normal. Troponin was not elevated. Albumin was low. Chest x-ray as indicated above. IMPRESSION: 1. Aspiration pneumonia. 2. Positive video dysphagia as indicated above. 3. Persistent bilateral pulmonary infiltrates related to chronic aspiration. 4. History of chronic respiratory failure. As indicated above, the patient was hospitalized here, treated for acute respiratory distress syndrome, underwent tracheotomy and eventually was decannulated. 5. Parkinsonism. 6. Diabetic neuropathy. 7. Generalized weakness. 8. Toxic metabolic encephalopathy present upon admission, improved. PLAN: 1. Recommend vancomycin and Levaquin. 2. The patient is status post bronchoscopy and BAL as an outpatient. Cultures at that time were negative. 2. Follow speech therapist's recommendation for diet. 3. Continue other medication. 4. Continue oxygen supplementation. I do appreciate the privilege in sharing in the patient's care. YESENIA GARCIAS MD DR: KAMI/lu JOB#: [id number] / [id number]
[2018-05-14 09:45] LABS: BASO % 0 % (0-3); EOS % 0 % (0-3); HEMATOCRIT 43.2 % (39.0-53.0); LYMPH # 0.7 x10^3/uL (1.0-4.8); LYMPH % 6 % (24-48); MEAN CORPUSCULAR HEMOGLOBIN 28 pg (25-35); MEAN CORPUSCULAR HGB CONC 32 g/dL (31-37); MEAN CORPUSCULAR VOLUME 86 fL (79-100); MONO # 0.7 x10^3/uL (0.0-1.1); MONO % 6 % (0-9); NEUT # 10.6 x10^3uL (1.8-7.7); NEUT % 88 % (31-73); PLATELET COUNT 117 x10^3/uL (140-400); RED BLOOD COUNT 5.04 x10^6/uL (4.30-5.70); RED CELL DISTRIBUTION WIDTH 16.3 % (11.5-14.5); WHITE BLOOD COUNT 12.1 x10^3/uL (4.0-11.0)
[2018-05-14 11:00] VITALS: BP 135/98
--- NOTE | 2018-05-14 12:18 | PDOC ---
PROGRESS NOTES Chief Complaint Chief Complaint Parkinson's, with dementia and delirium fxs - he is on pramipexole and carbidopa / levodopa Diabetic neuropathy Possible dysphagia Possible pneumonia. Dysautonomia, from [place] Urinary incontinence Chronic aspiration - being covered with levaquin History of Present Illness History of Present Illness Video swallow proves overt aspiration and abated upon resumption of honey thickened Family at bedside, patient lives with the at [place] Patient and family agreeable to SNU asks me about my opinion in increasing his Sinemet which she has been on the dose for many years in the background of recent delirium features Also mention of some autonomic involvement now, hypotension at home causing near falls Plan: continue dysphagia 3 honey thickened Await for neuro rounds we'll defer Sinemet dosing to the specialist Fall risk PT OT when able Social work SNU screen Full code for now-I will address with family members next meeting Other supportive meds/care MAy Shift IV Levaquin to by mouth Dw RN and Vitals Vitals Vital Signs Date Time Temp Pulse Resp B/P (MAP) Pulse Ox O2 Delivery O2 Flow Rate FiO2 05/14/18 11:45 Nasal Cannula 3.0 05/14/18 07:30 96.3 85 20 144/76 (98) 95 96.3 Physical Exam General: Alert, Oriented X3, Cooperative, No acute distress Heart: Regular rate, Normal S1, Normal S2, No murmurs Lungs: Crackles Abdomen: Normal bowel sounds, No tenderness Extremities: No clubbing, No cyanosis, No edema Skin: No rashes, No breakdown, No significant lesion Labs LABS Laboratory Tests Test 05/14/18 06:30 05/14/18 09:30 Vancomycin Level Trough 16.2 mcg/mL (10.0-20.0) Vancomycin Last Dose Date 05/13/18 Vancomycin Last Dose Time 1900 White Blood Count 12.1 x10^3/uL (4.0-11.0) Red Blood Count 5.04 x10^6/uL (4.30-5.70) Hemoglobin 14.0 g/dL (13.0-17.5) Hematocrit 43.2 % (39.0-53.0) Mean Corpuscular Volume 86 fL (79-100) Mean Corpuscular Hemoglobin 28 pg (25-35) Mean Corpuscular Hemoglobin Concent 32 g/dL (31-37) Red Cell Distribution Width 16.3 % (11.5-14.5) Platelet Count 117 x10^3/uL (140-400) Neutrophils (%) (Auto) 88 % (31-73) Lymphocytes (%) (Auto) 6 % (24-48) Monocytes (%) (Auto) 6 % (0-9) Eosinophils (%) (Auto) 0 % (0-3) Basophils (%) (Auto) 0 % (0-3) Neutrophils # (Auto) 10.6 x10^3uL (1.8-7.7) Lymphocytes # (Auto) 0.7 x10^3/uL (1.0-4.8) Monocytes # (Auto) 0.7 x10^3/uL (0.0-1.1) Eosinophils # (Auto) 0.0 x10^3/uL (0.0-0.7) Basophils # (Auto) 0.0 x10^3/uL (0.0-0.2) Erythrocyte Sedimentation Rate 30 (0-15) Review of Systems Review of Systems He denies 14 point systems reviewed with him Comment Review of Relevant I have reviewed the following items brett (where applicable) has been applied. Labs Laboratory Tests Test 05/12/18 15:52 05/12/18 16:40 05/12/18 17:01 05/13/18 06:19 White Blood Count 13.0 x10^3/uL (4.0-11.0) Red Blood Count 5.15 x10^6/uL (4.30-5.70) Hemoglobin 14.3 g/dL (13.0-17.5) Hematocrit 43.9 % (39.0-53.0) Mean Corpuscular Volume 85 fL (79-100) Mean Corpuscular Hemoglobin 28 pg (25-35) Mean Corpuscular Hemoglobin Concent 33 g/dL (31-37) Red Cell Distribution Width 16.1 % (11.5-14.5) Platelet Count 109 x10^3/uL (140-400) Neutrophils (%) (Auto) 92 % (31-73) Lymphocytes (%) (Auto) 4 % (24-48) Monocytes (%) (Auto) 4 % (0-9) Eosinophils (%) (Auto) 0 % (0-3) Basophils (%) (Auto) 0 % (0-3) Neutrophils # (Auto) 12.0 x10^3uL (1.8-7.7) Lymphocytes # (Auto) 0.5 x10^3/uL (1.0-4.8) Monocytes # (Auto) 0.5 x10^3/uL (0.0-1.1) Eosinophils # (Auto) 0.0 x10^3/uL (0.0-0.7) Basophils # (Auto) 0.0 x10^3/uL (0.0-0.2) Segmented Neutrophils % 86 % (35-66) Band Neutrophils % 6 % (0-9) Lymphocytes % 2 % (24-48) Atypical Lymphocytes % (Manual) 1 % (0-0) Monocytes % 5 % (0-10) Toxic Granulation Slight Platelet Estimate Decreased (ADEQUATE) Giant Platelets Occ Sodium Level 136 mmol/L (136-145) Potassium Level 4.5 mmol/L (3.5-5.1) Chloride Level 96 mmol/L (98-107) Carbon Dioxide Level 32 mmol/L (21-32) Anion Gap 8 (6-14) Blood Urea Nitrogen 15 mg/dL (8-26) Creatinine 0.5 mg/dL (0.7-1.3) 0.5 mg/dL (0.7-1.3) Estimated GFR (Cockcroft-Gault) 164.4 164.4 BUN/Creatinine Ratio 30 (6-20) Glucose Level 101 mg/dL (70-99) Lactic Acid Level 0.8 mmol/L (0.4-2.0) Calcium Level 9.1 mg/dL (8.5-10.1) Total Bilirubin 0.6 mg/dL (0.2-1.0) Aspartate Amino Transf (AST/SGOT) 37 U/L (15-37) Alanine Aminotransferase (ALT/SGPT) 19 U/L (16-63) Alkaline Phosphatase 112 U/L (46-116) Troponin I Quantitative < 0.017 ng/mL (0.000-0.055) Total Protein 7.5 g/dL (6.4-8.2) Albumin 3.3 g/dL (3.4-5.0) Albumin/Globulin Ratio 0.8 (1.0-1.7) Urine Collection Type Unknown Urine Color Yellow Urine Clarity Clear Urine pH 6.5 Urine Specific [place] 1.015 Urine Protein Negative mg/dL (NEG-TRACE) Urine Glucose (UA) Negative mg/dL (NEG) Urine Ketones (Stick) Negative mg/dL (NEG) Urine Blood Negative (NEG) Urine Nitrite Negative (NEG) Urine Bilirubin Negative (NEG) Urine Urobilinogen Dipstick 1.0 mg/dL (0.2 mg/dL) Urine Leukocyte Esterase Negative (NEG) Urine RBC 0 /HPF (0-2) Urine WBC 0 /HPF (0-4) Urine Squamous Epithelial Cells Few /LPF Urine Bacteria 0 /HPF (0-FEW) Urine Mucus Slight /LPF Influenza Type A Antigen Negative (NEGATIVE) Influenza Type B Antigen Negative (NEGATIVE) Test 05/14/18 06:30 05/14/18 09:30 Vancomycin Level Trough 16.2 mcg/mL (10.0-20.0) Vancomycin Last Dose Date 05/13/18 Vancomycin Last Dose Time 1900 White Blood Count 12.1 x10^3/uL (4.0-11.0) Red Blood Count 5.04 x10^6/uL (4.30-5.70) Hemoglobin 14.0 g/dL (13.0-17.5) Hematocrit 43.2 % (39.0-53.0) Mean Corpuscular Volume 86 fL (79-100) Mean Corpuscular Hemoglobin 28 pg (25-35) Mean Corpuscular Hemoglobin Concent 32 g/dL (31-37) Red Cell Distribution Width 16.3 % (11.5-14.5) Platelet Count 117 x10^3/uL (140-400) Neutrophils (%) (Auto) 88 % (31-73) Lymphocytes (%) (Auto) 6 % (24-48) Monocytes (%) (Auto) 6 % (0-9) Eosinophils (%) (Auto) 0 % (0-3) Basophils (%) (Auto) 0 % (0-3) Neutrophils # (Auto) 10.6 x10^3uL (1.8-7.7) Lymphocytes # (Auto) 0.7 x10^3/uL (1.0-4.8) Monocytes # (Auto) 0.7 x10^3/uL (0.0-1.1) Eosinophils # (Auto) 0.0 x10^3/uL (0.0-0.7) Basophils # (Auto) 0.0 x10^3/uL (0.0-0.2) Erythrocyte Sedimentation Rate 30 (0-15) Laboratory Tests Test 05/14/18 06:30 05/14/18 09:30 Vancomycin Level Trough 16.2 mcg/mL (10.0-20.0) Vancomycin Last Dose Date 05/13/18 Vancomycin Last Dose Time 1900 White Blood Count 12.1 x10^3/uL (4.0-11.0) Red Blood Count 5.04 x10^6/uL (4.30-5.70) Hemoglobin 14.0 g/dL (13.0-17.5) Hematocrit 43.2 % (39.0-53.0) Mean Corpuscular Volume 86 fL (79-100) Mean Corpuscular Hemoglobin 28 pg (25-35) Mean Corpuscular Hemoglobin Concent 32 g/dL (31-37) Red Cell Distribution Width 16.3 % (11.5-14.5) Platelet Count 117 x10^3/uL (140-400) Neutrophils (%) (Auto) 88 % (31-73) Lymphocytes (%) (Auto) 6 % (24-48) Monocytes (%) (Auto) 6 % (0-9) Eosinophils (%) (Auto) 0 % (0-3) Basophils (%) (Auto) 0 % (0-3) Neutrophils # (Auto) 10.6 x10^3uL (1.8-7.7) Lymphocytes # (Auto) 0.7 x10^3/uL (1.0-4.8) Monocytes # (Auto) 0.7 x10^3/uL (0.0-1.1) Eosinophils # (Auto) 0.0 x10^3/uL (0.0-0.7) Basophils # (Auto) 0.0 x10^3/uL (0.0-0.2) Erythrocyte Sedimentation Rate 30 (0-15) Microbiology 05/12/18 Blood Culture - Preliminary, Resulted NO GROWTH AFTER 1 DAY Medications Current Medications Sodium Chloride 500 ml @ 500 mls/hr 1X ONCE IV Last administered on at 16:05; Start 05/12/18 at 15:30; Stop 05/12/18 at 16:29; Status DC Vancomycin HCl (Vanco Per Pharmacy) 1 each PRN DAILY PRN MC SEE COMMENTS Last administered on 05/14/18at 07:54; Start 05/12/18 at 17:00; Stop 05/14/18 at 08:57 ; Status DC Levofloxacin/ Dextrose (Levaquin Per Pharmacy) 1 each PRN DAILY PRN MC SEE COMMENTS; Start 05/12/18 at 17:00; Stop 05/14/18 at 09:01; Status DC Levofloxacin/ Dextrose 150 ml @ 100 mls/hr 1X ONCE IV Last administered on at 17:30; Start 05/12/18 at 17:00; Stop 05/12/18 at 18:29; Status DC Vancomycin HCl 2 gm/Sodium Chloride 500 ml @ 250 mls/hr 1X ONCE IV Last administered on 05/12/18at 19:12; Start 05/12/18 at 18:00; Stop 05/12/18 at 19:59 ; Status DC Levofloxacin/ Dextrose 150 ml @ 100 mls/hr Q24H IV Last administered on at 17:20; Start 05/13/18 at 17:00; Stop 05/14/18 at 08:57; Status DC Vancomycin HCl 1.75 gm/Sodium Chloride 500 ml @ 250 mls/hr Q12H IV Last administered on 05/14/18at 07:32; Start 05/13/18 at 07:00; Stop 05/14/18 at 08:57 ; Status DC Vancomycin HCl (Vancomycin Trough Level) 1 each 1X ONCE MC Last administered on 05/14/18at 07:15; Start 05/14/18 at 06:30; Stop 05/14/18 at 06:31; Status DC Lactobacillus Rhamnosus (Culturelle) 1 cap BID PO Last administered on at 09:00; Start 05/12/18 at 21:00 Carbidopa/Levodopa (Sinemet 25/100) 1 tab QID PO Last administered on at 09:16; Start 05/12/18 at 22:30 Cetirizine HCl (ZyrTEC) 10 mg DAILY PO Last administered on 05/14/18at 09:15; Start 05/13/18 at 09:00 Docusate Sodium (Colace) 100 mg DAILY PO ; Start 05/13/18 at 09:00; Stop at 09:00; Status DC Docusate Sodium (Colace) 100 mg BID PO Last administered on 05/14/18at 09:15; Start 05/13/18 at 09:00 Ipratropium [place] (Atrovent) 0.5 mg RTQID NEB Last administered on 05/13/18at 07:30; Start 05/13/18 at 08:00; Stop 05/13/18 at 12:03; Status DC Miconazole Nitrate (Monistat-Derm) 1 kaylan PRN BID PRN TP RASH; Start 05/12/18 at 22:15 Nystatin (Nystop) 1 kaylan BID TP Last administered on 05/13/18at 21:27; Start at 09:00 Pramipexole Dihydrochloride (miraPEX) 1.5 mg [id number] PO Last administered on at 09:16; Start 05/12/18 at 22:30 Barium Sulfate (Varibar Thin Liquid [place]) 148 gm 1X ONCE PO ; Start 05/13/18 at 11:15; Stop 05/13/18 at 11:16; Status DC Acetaminophen (Tylenol) 500 mg PRN Q6HRS PRN PO MILD PAIN / TEMP; Start at 12:00 Acetaminophen/ Codeine Phosphate (Tylenol #3) 1 tab PRN Q6HRS PRN PO MODERATE PAIN; Start 05/13/18 at 12:00 Albuterol/ Ipratropium (Duoneb) 3 ml RTQID NEB Last administered on 05/14/18at 11:45; Start 05/13/18 at 12:00 Temazepam (Restoril) 7.5 mg PRN QHS PRN PO INSOMNIA; Start 05/13/18 at 12:00 Ondansetron HCl (Zofran) 4 mg PRN Q6HRS PRN IV NAUSEA/VOMITING; Start 05/13/18 at 12:00 Ondansetron HCl (Zofran Odt) 4 mg PRN Q6HRS PRN PO NAUSEA/VOMITING; Start 05/13 at 12:00 Furosemide (Lasix) 40 mg DAILY PO Last administered on 05/14/18at 09:16; Start 05/13/18 at 13:00 Vitamin D (Vitamin D3) 5,000 unit DAILY PO Last administered on 05/14/18at 09:15 ; Start 05/13/18 at 13:00 Multivitamins (Thera M Plus) 1 tab DAILY PO Last administered on 05/14/18at 09: 15; Start 05/13/18 at 13:00 Potassium Chloride (Klor-Con) 20 meq [id number] PO Last administered on at 09:16; Start 05/13/18 at 13:00 Prednisone (Prednisone) 60 mg 1X ONCE PO ; Start 05/13/18 at 12:30; Stop at 12:47; Status DC Prednisone (Prednisone) 40 mg DAILY PO ; Start 05/14/18 at 09:00; Stop 05/14/18 at 09:00; Status DC Levofloxacin (Levaquin) 500 mg DAILY06 PO ; Start 05/15/18 at 13:00 Active Scripts Active Colace (Docusate Sodium) 100 Mg Capsule 100 Mg PO BID Reported Elizabeth Antifungal (Miconazole Nitrate) 142 Gm Cream..g. 142 Gm TP BID PRN Nystatin 15 Gm Powder 1 [place] TP BID Colace (Docusate Sodium) 100 Mg Capsule 1 Cap PO DAILY Vitamin D (Cholecalciferol (Vitamin D3)) 2,000 Unit Capsule 5,000 Unit PO DAILY Centrum Silver Tablet (Multivits-Min/Fa/Lycopene/Lut) 1 Each Tablet 1 Each PO DAILY Lasix (Furosemide) 40 Mg Tablet 1 Tab PO DAILY Potassium Chloride 20 Meq Tablet.er 20 Meq PO DAILY Ipratropium [place] 0.2 Mg/1 Ml Solution 0.5 Mg NEB QID Vitamin D (Cholecalciferol (Vitamin D3)) 1,000 Unit Capsule 1 Cap PO DAILY Mirapex (Pramipexole Di-Hcl) 0.25 Mg Tablet 1.5 Mg PO TID Sinemet 25-100 Mg Tablet (Carbidopa/Levodopa) 1 Each Tablet 1 Tab PO QID 30 Days take 1 tablet four times a day, add an additional tablet to the afternoon dose Zyrtec (Cetirizine Hcl) 10 Mg Tablet 1 Tab PO DAILY Vitals/I & O Vital Sign - Last 24 Hours 05/13/18 05/13/18 05/13/18 05/13/18 12:24 15:00 15:43 19:20 Temp 98.3 96.0 98.3 96.0 Pulse 75 74 Resp 20 18 B/P (MAP) 110/57 (74) 127/80 (96) Pulse Ox 93 93 O2 Delivery Nasal Cannula Nasal Cannula Nasal Cannula Nasal Cannula O2 Flow Rate 3.0 3.0 3.0 2.0 05/13/18 05/13/18 05/13/18 05/14/18 20:13 20:15 23:20 03:20 Pulse 65 72 Resp 18 20 B/P (MAP) 140/74 (96) 159/85 (109) Pulse Ox 90 90 O2 Delivery Nasal Cannula Nasal Cannula Nasal Cannula Nasal Cannula O2 Flow Rate 3.0 2.0 2.0 2.0 05/14/18 05/14/18 05/14/18 07:30 07:57 11:45 Temp 96.3 96.3 Pulse 85 Resp 20 B/P (MAP) 144/76 (98) Pulse Ox 95 O2 Delivery Nasal Cannula Nasal Cannula Nasal Cannula O2 Flow Rate 2.0 3.0 3.0 Intake and Output 05/13/18 05/13/18 05/14/18 14:59 22:59 06:59 Intake Total 480 ml 240 ml 440 ml Output Total 200 ml Balance 480 ml 40 ml 440 ml DARELL CORNELL MD May 14, 2018 12:18
[2018-05-14 15:00] VITALS: BP 149/58
[2018-05-14 19:50] VITALS: BP 131/76
--- NOTE | 2018-05-14 21:09 | PDOC ---
PROGRESS NOTES Assessment 1. Parkinson's disease for which she is treated with Sinemet and pramipexole. This evening he does not have much tremor but he has a great deal of rigidity and bradykinesia. 2. Severe dysphagia with aspiration anything thinner and honey thickened liquids. He has aspiration pneumonia because of the severe dysphagia. If he does not meet his nutritional needs with a modified diet and then he may require a feeding tube which he didn't previously have in place. 3. I suspect dementia associated with the Parkinson's disease. It is difficult to say during an acute illness because he may be encephalopathic. 4. Significant diabetic neuropathy with sensory shading mcc up his calves. Plan 1. Continue with current dopaminergic medications. 2. He will continue to eat a modified diet. He may need a calorie count to see if he is meeting his needs. 3. As his underlying infection is treated and hopefully improves we could consider further cognitive testing as an outpatient. He will require rehabilitation and likely prolonged stay in an extended care facility Subjective I'm not in pain. My appetite is not very good. I will try to eat some of my meal a little later. Objective Vital Signs Date Time Temp Pulse Resp B/P (MAP) Pulse Ox O2 Delivery O2 Flow Rate FiO2 05/14/18 20:16 Nasal Cannula 3.0 05/14/18 19:50 97.9 73 16 131/76 (94) 91 97.9 Intake and Output 05/14/18 06:59 Intake Total 1160 ml Output Total 200 ml Balance 960 ml Intake Oral 1160 ml Output Urine Total 200 ml # Voids 3 PHYSICAL EXAM He was just receiving a breathing treatment upon my arrival. His speech was soft and difficult to understand. The eyes were conjugate and face symmetric. He was able to follow commands. Muscle bulk was symmetric. Tone was increased with cogwheel rigidity of all 4 extremities. He did not have a resting tremor. Movements were slow with rapid tapping attempts. Finger to nose was slow. Moving around in the bed was very slow. Sensation was intact to light touch and sharp. Review of Relevant I have reviewed the following items brett (where applicable) has been applied. Labs Laboratory Tests Test 05/13/18 06:19 05/14/18 06:30 05/14/18 09:30 Creatinine 0.5 mg/dL (0.7-1.3) Estimated GFR (Cockcroft-Gault) 164.4 Vancomycin Level Trough 16.2 mcg/mL (10.0-20.0) Vancomycin Last Dose Date 05/13/18 Vancomycin Last Dose Time 190 White Blood Count 12.1 x10^3/uL (4.0-11.0) Red Blood Count 5.04 x10^6/uL (4.30-5.70) Hemoglobin 14.0 g/dL (13.0-17.5) Hematocrit 43.2 % (39.0-53.0) Mean Corpuscular Volume 86 fL (79-100) Mean Corpuscular Hemoglobin 28 pg (25-35) Mean Corpuscular Hemoglobin Concent 32 g/dL (31-37) Red Cell Distribution Width 16.3 % (11.5-14.5) Platelet Count 117 x10^3/uL (140-400) Neutrophils (%) (Auto) 88 % (31-73) Lymphocytes (%) (Auto) 6 % (24-48) Monocytes (%) (Auto) 6 % (0-9) Eosinophils (%) (Auto) 0 % (0-3) Basophils (%) (Auto) 0 % (0-3) Neutrophils # (Auto) 10.6 x10^3uL (1.8-7.7) Lymphocytes # (Auto) 0.7 x10^3/uL (1.0-4.8) Monocytes # (Auto) 0.7 x10^3/uL (0.0-1.1) Eosinophils # (Auto) 0.0 x10^3/uL (0.0-0.7) Basophils # (Auto) 0.0 x10^3/uL (0.0-0.2) Erythrocyte Sedimentation Rate 30 (0-15) Laboratory Tests Test 05/14/18 06:30 05/14/18 09:30 Vancomycin Level Trough 16.2 mcg/mL (10.0-20.0) Vancomycin Last Dose Date 05/13/18 Vancomycin Last Dose Time 1900 White Blood Count 12.1 x10^3/uL (4.0-11.0) Red Blood Count 5.04 x10^6/uL (4.30-5.70) Hemoglobin 14.0 g/dL (13.0-17.5) Hematocrit 43.2 % (39.0-53.0) Mean Corpuscular Volume 86 fL (79-100) Mean Corpuscular Hemoglobin 28 pg (25-35) Mean Corpuscular Hemoglobin Concent 32 g/dL (31-37) Red Cell Distribution Width 16.3 % (11.5-14.5) Platelet Count 117 x10^3/uL (140-400) Neutrophils (%) (Auto) 88 % (31-73) Lymphocytes (%) (Auto) 6 % (24-48) Monocytes (%) (Auto) 6 % (0-9) Eosinophils (%) (Auto) 0 % (0-3) Basophils (%) (Auto) 0 % (0-3) Neutrophils # (Auto) 10.6 x10^3uL (1.8-7.7) Lymphocytes # (Auto) 0.7 x10^3/uL (1.0-4.8) Monocytes # (Auto) 0.7 x10^3/uL (0.0-1.1) Eosinophils # (Auto) 0.0 x10^3/uL (0.0-0.7) Basophils # (Auto) 0.0 x10^3/uL (0.0-0.2) Erythrocyte Sedimentation Rate 30 (0-15) Microbiology 05/12/18 Blood Culture - Preliminary, Resulted NO GROWTH AFTER 2 DAYS Medications Current Medications Sodium Chloride 500 ml @ 500 mls/hr 1X ONCE IV Last administered on at 16:05; Start 05/12/18 at 15:30; Stop 05/12/18 at 16:29; Status DC Vancomycin HCl (Vanco Per Pharmacy) 1 each PRN DAILY PRN MC SEE COMMENTS Last administered on 05/14/18at 07:54; Start 05/12/18 at 17:00; Stop 05/14/18 at 08:57 ; Status DC Levofloxacin/ Dextrose (Levaquin Per Pharmacy) 1 each PRN DAILY PRN MC SEE COMMENTS; Start 05/12/18 at 17:00; Stop 05/14/18 at 09:01; Status DC Levofloxacin/ Dextrose 150 ml @ 100 mls/hr 1X ONCE IV Last administered on at 17:30; Start 05/12/18 at 17:00; Stop 05/12/18 at 18:29; Status DC Vancomycin HCl 2 gm/Sodium Chloride 500 ml @ 250 mls/hr 1X ONCE IV Last administered on 05/12/18 19:12; Start 05/12/18 at 18:00; Stop 05/12/18 at 19:59 ; Status DC Levofloxacin/ Dextrose 150 ml @ 100 mls/hr Q24H IV Last administered on 17:20; Start 05/13/18 at 17:00; Stop 05/14/18 at 08:57; Status DC Vancomycin HCl 1.75 gm/Sodium Chloride 500 ml @ 250 mls/hr Q12H IV Last administered on 05/14/18at 07:32; Start 05/13/18 at 07:00; Stop 05/14/18 at 08:57 ; Status DC Vancomycin HCl (Vancomycin Trough Level) 1 each 1X ONCE MC Last administered on 05/14/18 07:15; Start 05/14/18 at 06:30; Stop 05/14/18 at 06:31; Status DC Lactobacillus Rhamnosus (Culturelle) 1 cap BID PO Last administered on at 09:00; Start 05/12/18 at 21:00 Carbidopa/Levodopa (Sinemet 25/100) 1 tab QID PO Last administered on 17:00; Start 05/12/18 at 22:30 Cetirizine HCl (ZyrTEC) 10 mg DAILY PO Last administered on 05/14/18at 09:15; Start 05/13/18 at 09:00 Docusate Sodium (Colace) 100 mg DAILY PO ; Start 05/13/18 at 09:00; Stop at 09:00; Status DC Docusate Sodium (Colace) 100 mg BID PO Last administered on 05/14/18at 09:15; Start 05/13/18 at 09:00 Ipratropium [place] (Atrovent) 0.5 mg RTQID NEB Last administered on 05/13/18 07:30; Start 05/13/18 at 08:00; Stop 05/13/18 at 12:03; Status DC Miconazole Nitrate (Monistat-Derm) 1 kaylan PRN BID PRN TP RASH; Start 05/12/18 at 22:15 Nystatin (Nystop) 1 kaylan BID TP Last administered on 05/14/18at 09:00; Start at 09:00 Pramipexole Dihydrochloride (miraPEX) 1.5 mg [id number] PO Last administered on at 13:40; Start 05/12/18 at 22:30 Barium Sulfate (Varibar Thin Liquid Apple) 148 gm 1X ONCE PO ; Start 05/13/18 at 11:15; Stop 05/13/18 at 11:16; Status DC Acetaminophen (Tylenol) 500 mg PRN Q6HRS PRN PO MILD PAIN / TEMP; Start at 12:00 Acetaminophen/ Codeine Phosphate (Tylenol #3) 1 tab PRN Q6HRS PRN PO MODERATE PAIN; Start 05/13/18 at 12:00 Albuterol/ Ipratropium (Duoneb) 3 ml RTQID NEB Last administered on 05/14/18at 20:17; Start 05/13/18 at 12:00 Temazepam (Restoril) 7.5 mg PRN QHS PRN PO INSOMNIA; Start 05/13/18 at 12:00 Ondansetron HCl (Zofran) 4 mg PRN Q6HRS PRN IV NAUSEA/VOMITING; Start 05/13/18 at 12:00 Ondansetron HCl (Zofran Odt) 4 mg PRN Q6HRS PRN PO NAUSEA/VOMITING; Start 05/13 at 12:00 Furosemide (Lasix) 40 mg DAILY PO Last administered on 05/14/18at 09:16; Start 05/13/18 at 13:00 Vitamin D (Vitamin D3) 5,000 unit DAILY PO Last administered on 05/14/18at 09:15 ; Start 05/13/18 at 13:00 Multivitamins (Thera M Plus) 1 tab DAILY PO Last administered on 05/14/18at 09: 15; Start 05/13/18 at 13:00 Potassium Chloride (Klor-Con) 20 meq DAILYWBKFT PO Last administered on at 09:16; Start 05/13/18 at 13:00 Prednisone (Prednisone) 60 mg 1X ONCE PO ; Start 05/13/18 at 12:30; Stop at 12:47; Status DC Prednisone (Prednisone) 40 mg DAILY PO ; Start 05/14/18 at 09:00; Stop 05/14/18 at 09:00; Status DC Levofloxacin (Levaquin) 500 mg DAILY06 PO ; Start 05/15/18 at 13:00 Active Scripts Active Colace (Docusate Sodium) 100 Mg Capsule 100 Mg PO BID Reported Elizabeth Antifungal (Miconazole Nitrate) 142 Gm Cream..g. 142 Gm TP BID PRN Nystatin 15 Gm Powder 1 Kaylan TP BID Colace (Docusate Sodium) 100 Mg Capsule 1 Cap PO DAILY Vitamin D (Cholecalciferol (Vitamin D3)) 2,000 Unit Capsule 5,000 Unit PO DAILY Centrum Silver Tablet (Multivits-Min/Fa/Lycopene/Lut) 1 Each Tablet 1 Each PO DAILY Lasix (Furosemide) 40 Mg Tablet 1 Tab PO DAILY Potassium Chloride 20 Meq Tablet.er 20 Meq PO DAILY Ipratropium [place] 0.2 Mg/1 Ml Solution 0.5 Mg NEB QID Vitamin D (Cholecalciferol (Vitamin D3)) 1,000 Unit Capsule 1 Cap PO DAILY Mirapex (Pramipexole Di-Hcl) 0.25 Mg Tablet 1.5 Mg PO TID Sinemet 25-100 Mg Tablet (Carbidopa/Levodopa) 1 Each Tablet 1 Tab PO QID 30 Days take 1 tablet four times a day, add an additional tablet to the afternoon dose Zyrtec (Cetirizine Hcl) 10 Mg Tablet 1 Tab PO DAILY Vitals/I & O Vital Sign - Last 24 Hours 05/13/18 05/14/18 05/14/18 05/14/18 23:20 03:20 07:30 07:57 Temp 96.3 96.3 Pulse 65 72 85 Resp 18 20 20 B/P (MAP) 140/74 (96) 159/85 (109) 144/76 (98) Pulse Ox 90 90 95 O2 Delivery Nasal Cannula Nasal Cannula Nasal Cannula Nasal Cannula O2 Flow Rate 2.0 2.0 2.0 3.0 05/14/18 05/14/18 05/14/18 05/14/18 08:00 11:00 11:45 15:00 Temp 96.5 96.0 96.5 96.0 Pulse 74 70 Resp 20 20 B/P (MAP) 135/98 (110) 149/58 (88) Pulse Ox 93 94 O2 Delivery Nasal Cannula Nasal Cannula Nasal Cannula Nasal Cannula O2 Flow Rate 3.0 2.0 3.0 2.0 05/14/18 05/14/18 05/14/18 15:21 19:50 20:16 Temp 97.9 97.9 Pulse 73 Resp 16 B/P (MAP) 131/76 (94) Pulse Ox 91 O2 Delivery Nasal Cannula Nasal Cannula Nasal Cannula O2 Flow Rate 3.0 2.0 3.0 Intake and Output 05/13/18 05/13/18 05/14/18 14:59 22:59 06:59 Intake Total 480 ml 240 ml 440 ml Output Total 200 ml Balance 480 ml 40 ml 440 ml KAYE BARCENAS MD May 14, 2018 21:09
[2018-05-14 23:35] VITALS: BP 145/55
[2018-05-15 03:28] VITALS: BP 148/89
[2018-05-15 07:00] VITALS: BP 100/50
[2018-05-15] MEDS: IPRATRPIUM/ALBUTEROL 0.5/2.5MG 3 ML NEBU. NEB SCH ×4 (08:04→19:50)
[2018-05-15] MEDS: PRAMIPEXOLE 1 MG TABLET. PO SCH ×3 (08:51→20:47)
[2018-05-15] MEDS: MULTIVITAMIN with MINERAL TABLET. PO SCH ×2 (08:51→12:30)
[2018-05-15] MEDS: DOCUSATE SODIUM 100 MG CAPSULE. PO SCH ×2 (08:52→20:47)
[2018-05-15] MEDS: LACTOBACILLUS RHAMNOSUS GG 1 CAPSULE. PO SCH (08:52)
[2018-05-15] MEDS: CHOLECALCIFEROL (VITAMIN D3) 5,000 UNIT CAPSULE PO SCH (08:52)
[2018-05-15] MEDS: FUROSEMIDE 40 MG TABLET. PO SCH (08:52)
[2018-05-15] MEDS: CARBIDOPA/LEVODOPA 25/100MG TABLET PO SCH ×4 (08:53→20:48)
[2018-05-15] MEDS: POTASSIUM CHLORIDE 20 MEQ TABLET.ER. PO SCH ×2 (08:53→12:30)
[2018-05-15] MEDS: CETIRIZINE HCL 10 MG TABLET. PO SCH (08:53)
[2018-05-15] MEDS: NYSTATIN TOPICAL POWDER 15GM BOTTLE. TP SCH ×2 (08:54→20:55)
--- NOTE | 2018-05-15 10:16 | PDOC ---
PULMONARY PROGRESS NOTES Subjective sob better, has cough, no pain, but not feeling well today, on home o2 Vitals Vital Signs Date Time Temp Pulse Resp B/P (MAP) Pulse Ox O2 Delivery O2 Flow Rate FiO2 05/15/18 08:06 Nasal Cannula 3.0 05/15/18 07:00 98.1 74 22 100/50 (67) 91 98.1 General: Alert, No acute distress HEENT: Other (nc at perrl) Lungs: Crackles Cardiovascular: S1, S2 Abdomen: Soft, Non-tender Neuro Exam: Alert Extremities: Other Skin: Warm Labs Laboratory Tests Test 05/14/18 06:30 05/14/18 09:30 Vancomycin Level Trough 16.2 mcg/mL (10.0-20.0) Vancomycin Last Dose Date 05/13/18 Vancomycin Last Dose Time 1900 White Blood Count 12.1 x10^3/uL (4.0-11.0) Red Blood Count 5.04 x10^6/uL (4.30-5.70) Hemoglobin 14.0 g/dL (13.0-17.5) Hematocrit 43.2 % (39.0-53.0) Mean Corpuscular Volume 86 fL (79-100) Mean Corpuscular Hemoglobin 28 pg (25-35) Mean Corpuscular Hemoglobin Concent 32 g/dL (31-37) Red Cell Distribution Width 16.3 % (11.5-14.5) Platelet Count 117 x10^3/uL (140-400) Neutrophils (%) (Auto) 88 % (31-73) Lymphocytes (%) (Auto) 6 % (24-48) Monocytes (%) (Auto) 6 % (0-9) Eosinophils (%) (Auto) 0 % (0-3) Basophils (%) (Auto) 0 % (0-3) Neutrophils # (Auto) 10.6 x10^3uL (1.8-7.7) Lymphocytes # (Auto) 0.7 x10^3/uL (1.0-4.8) Monocytes # (Auto) 0.7 x10^3/uL (0.0-1.1) Eosinophils # (Auto) 0.0 x10^3/uL (0.0-0.7) Basophils # (Auto) 0.0 x10^3/uL (0.0-0.2) Erythrocyte Sedimentation Rate 30 (0-15) Medications Active Scripts Medications Dose Route/Sig Max Daily Dose Days Date Category Dose Instructions Elizabeth Antifungal (Miconazole Nitrate) 142 Gm Cream..g. 142 Gm TP BID PRN 05/12/18 Reported Nystatin 15 Gm Powder 1 Kaylan TP BID 05/12/18 Reported Colace (Docusate Sodium) 100 Mg Capsule 1 Cap PO DAILY 04/13/18 Reported Vitamin D (Cholecalciferol (Vitamin D3)) 2,000 Unit Capsule 5,000 Unit PO DAILY 04/13/18 Reported Centrum Silver Tablet (Multivits-Min/Fa/Lycopene/Lut) 1 Each Tablet 1 Each PO DAILY 04/13/18 Reported Lasix (Furosemide) 40 Mg Tablet 1 Tab PO DAILY 04/13/18 Reported Potassium Chloride 20 Meq Tablet.er 20 Meq PO DAILY 04/13/18 Reported Ipratropium [place] 0.2 Mg/1 Ml Solution 0.5 Mg NEB QID 04/13/18 Reported Vitamin D (Cholecalciferol (Vitamin D3)) 1,000 Unit Capsule 1 Cap PO DAILY 04/13/18 Reported Mirapex (Pramipexole Di-Hcl) 0.25 Mg Tablet 1.5 Mg PO TID 04/13/18 Reported Sinemet 25-100 Mg Tablet (Carbidopa/Levodopa) 1 Each Tablet 1 Tab PO QID 30 07/17/15 Reported take 1 tablet four times a day, add an additional tablet to the afternoon dose Zyrtec (Cetirizine Hcl) 10 Mg Tablet 1 Tab PO DAILY 03/20/15 Reported Colace (Docusate Sodium) 100 Mg Capsule 100 Mg PO BID 04/06/14 Rx Impression . IMPRESSION: 1. Aspiration pneumonia. 2. dysphagia s/p opv. 3. Persistent bilateral pulmonary infiltrates related to chronic aspiration. 4. History of chronic respiratory failure. As indicated above, the patient was hospitalized here, treated for acute respiratory distress syndrome, underwent tracheotomy and eventually was decannulated. 5. Parkinsonism. 6. Diabetic neuropathy. 7. Generalized weakness. 8. Toxic metabolic encephalopathy present upon admission, improved. Plan . PLAN: 1. cont abx 2. The patient is status post bronchoscopy and BAL as an outpatient. Cultures at that time were negative. 2. Follow speech therapist's recommendation for diet. 3. Continue other medication. 4. Continue oxygen supplementation. 02 titration. 5. BD 6. elevate HOB discussed w pt JINA SOMERS MD May 15, 2018 10:16
[2018-05-15 11:00] VITALS: BP 106/65
--- NOTE | 2018-05-15 11:13 | PDOC ---
PROGRESS NOTES Chief Complaint Chief Complaint Parkinson's, with dementia and delirium fxs - he is on pramipexole and carbidopa / levodopa Diabetic neuropathy Possible dysphagia Possible pneumonia. Dysautonomia, from [place] Urinary incontinence Chronic aspiration - being covered with levaquin PUlmonary congestion on chest x-ray Atelectasis History of Present Illness History of Present Illness MOre Confused today, seemingly having dreams and delirium on my visit today Concerns about overtly choking today, crackles on auscultation Chest x-ray have reviewed again, pulmonary congestion with atelectasis and possibly pneumonia Getting Levaquin SAT ENTRY: Video swallow proves overt aspiration and abated upon resumption of honey thickened Family at bedside, patient lives with the at [place] Patient and family agreeable to SNU asks me about my opinion in increasing his Sinemet which she has been on the dose for many years in the background of recent delirium features Also mention of some autonomic involvement now, hypotension at home causing near falls Plan: NOthing By mouth for now Was previously on dysphagia 3 with honey thickened Social work consulted, family agreeable to SNU Need to address CODE STATUS-I think the we'll is reasonable and can make him a DNR Check CBC again, last WBC was 12 with a high sedimentation rate. Lasix 40 IV now then daily ProcalAmine low dose 1 CLIENT RESOLUTION SPECIALIST evaluation again Wednesday Changed all by mouth meds to IV Okay to have Parkinson's and Requip meds with sips of meds Dvt ppx SUction when necessary Trial of scopolamine patch-unsure if this will help at all Very high fall risk Discussed with RN Vitals Vitals Vital Signs Date Time Temp Pulse Resp B/P (MAP) Pulse Ox O2 Delivery O2 Flow Rate FiO2 05/15/18 08:06 Nasal Cannula 3.0 05/15/18 07:00 98.1 74 22 100/50 (67 91 98.1 Physical Exam General: Alert, Oriented X3, Cooperative, No acute distress Heart: Regular rate, Normal S1, Normal S2, No murmurs Lungs: Crackles Abdomen: Normal bowel sounds, No tenderness Extremities: No clubbing, No cyanosis, No edema Skin: No rashes, No breakdown, No significant lesion Review of Systems Review of Systems Parkinsons dementia, hence limited rOS Comment Review of Relevant I have reviewed the following items brett (where applicable) has been applied. Labs Laboratory Tests Test 05/14/18 06:30 05/14/18 09:30 Vancomycin Level Trough 16.2 mcg/mL (10.0-20.0) Vancomycin Last Dose Date 05/13/18 Vancomycin Last Dose Time 1900 White Blood Count 12.1 x10^3/uL (4.0-11.0) Red Blood Count 5.04 x10^6/uL (4.30-5.70) Hemoglobin 14.0 g/dL (13.0-17.5) Hematocrit 43.2 % (39.0-53.0) Mean Corpuscular Volume 86 fL (79-100) Mean Corpuscular Hemoglobin 28 pg (25-35) Mean Corpuscular Hemoglobin Concent 32 g/dL (31-37) Red Cell Distribution Width 16.3 % (11.5-14.5) Platelet Count 117 x10^3/uL (140-400) Neutrophils (%) (Auto) 88 % (31-73) Lymphocytes (%) (Auto) 6 % (24-48) Monocytes (%) (Auto) 6 % (0-9) Eosinophils (%) (Auto) 0 % (0-3) Basophils (%) (Auto) 0 % (0-3) Neutrophils # (Auto) 10.6 x10^3uL (1.8-7.7) Lymphocytes # (Auto) 0.7 x10^3/uL (1.0-4.8) Monocytes # (Auto) 0.7 x10^3/uL (0.0-1.1) Eosinophils # (Auto) 0.0 x10^3/uL (0.0-0.7) Basophils # (Auto) 0.0 x10^3/uL (0.0-0.2) Erythrocyte Sedimentation Rate 30 (0-15) Microbiology 05/12/18 Blood Culture - Preliminary, Resulted NO GROWTH AFTER 2 DAYS Medications Current Medications Sodium Chloride 500 ml @ 500 mls/hr 1X ONCE IV Last administered on at 16:05; Start 05/12/18 at 15:30; Stop 05/12/18 at 16:29; Status DC Vancomycin HCl (Vanco Per Pharmacy) 1 each PRN DAILY PRN MC SEE COMMENTS Last administered on 05/14/18at 07:54; Start 05/12/18 at 17:00; Stop 05/14/18 at 08:57 ; Status DC Levofloxacin/ Dextrose (Levaquin Per Pharmacy) 1 each PRN DAILY PRN MC SEE COMMENTS; Start 05/12/18 at 17:00; Stop 05/14/18 at 09:01; Status DC Levofloxacin/ Dextrose 150 ml @ 100 mls/hr 1X ONCE IV Last administered on at 17:30; Start 05/12/18 at 17:00; Stop 05/12/18 at 18:29; Status DC Vancomycin HCl 2 gm/Sodium Chloride 500 ml @ 250 mls/hr 1X ONCE IV Last administered on 05/12/18at 19:12; Start 05/12/18 at 18:00; Stop 05/12/18 at 19:59 ; Status DC Levofloxacin/ Dextrose 150 ml @ 100 mls/hr Q24H IV Last administered on at 17:20; Start 05/13/18 at 17:00; Stop 05/14/18 at 08:57; Status DC Vancomycin HCl 1.75 gm/Sodium Chloride 500 ml @ 250 mls/hr Q12H IV Last administered on 05/14/18at 07:32; Start 05/13/18 at 07:00; Stop 05/14/18 at 08:57 ; Status DC Vancomycin HCl (Vancomycin Trough Level) 1 each 1X ONCE MC Last administered on 05/14/18at 07:15; Start 05/14/18 at 06:30; Stop 05/14/18 at 06:31; Status DC Lactobacillus Rhamnosus (Culturelle) 1 cap BID PO Last administered on at 08:52; Start 05/12/18 at 21:00 Carbidopa/Levodopa (Sinemet 25/100) 1 tab QID PO Last administered on at 08:53; Start 05/12/18 at 22:30 Cetirizine HCl (ZyrTEC) 10 mg DAILY PO Last administered on 05/15/18at 08:53; Start 05/13/18 at 09:00 Docusate Sodium (Colace) 100 mg DAILY PO ; Start 05/13/18 at 09:00; Stop at 09:00; Status DC Docusate Sodium (Colace) 100 mg BID PO Last administered on 05/15/18at 08:52; Start 05/13/18 at 09:00 Ipratropium [place] (Atrovent) 0.5 mg RTQID NEB Last administered on 05/13/18at 07:30; Start 05/13/18 at 08:00; Stop 05/13/18 at 12:03; Status DC Miconazole Nitrate (Monistat-Derm) 1 kaylan PRN BID PRN TP RASH; Start 05/12/18 at 22:15 Nystatin (Nystop) 1 kaylan BID TP Last administered on 05/15/18at 08:54; Start at 09:00 Pramipexole Dihydrochloride (miraPEX) 1.5 mg [id number] PO Last administered on at 08:51; Start 05/12/18 at 22:30 Barium Sulfate (Varibar Thin Liquid Apple) 148 gm 1X ONCE PO ; Start 05/13/18 at 11:15; Stop 05/13/18 at 11:16; Status DC Acetaminophen (Tylenol) 500 mg PRN Q6HRS PRN PO MILD PAIN / TEMP; Start at 12:00 Acetaminophen/ Codeine Phosphate (Tylenol #3) 1 tab PRN Q6HRS PRN PO MODERATE PAIN; Start 05/13/18 at 12:00 Albuterol/ Ipratropium (Duoneb) 3 ml RTQID NEB Last administered on 05/15/18at 08:04; Start 05/13/18 at 12:00 Temazepam (Restoril) 7.5 mg PRN QHS PRN PO INSOMNIA; Start 05/13/18 at 12:00 Ondansetron HCl (Zofran) 4 mg PRN Q6HRS PRN IV NAUSEA/VOMITING; Start 05/13/18 at 12:00 Ondansetron HCl (Zofran Odt) 4 mg PRN Q6HRS PRN PO NAUSEA/VOMITING; Start 05/13 at 12:00 Furosemide (Lasix) 40 mg DAILY PO Last administered on 05/15/18at 08:52; Start 05/13/18 at 13:00 Vitamin D (Vitamin D3) 5,000 unit DAILY PO Last administered on 05/15/18at 08:52 ; Start 05/13/18 at 13:00 Multivitamins (Thera M Plus) 1 tab DAILY PO Last administered on 05/15/18at 08: 51; Start 05/13/18 at 13:00 Potassium Chloride (Klor-Con) 20 meq DAILYWBKFT PO Last administered on at 08:53; Start 05/13/18 at 13:00 Prednisone (Prednisone) 60 mg 1X ONCE PO ; Start 05/13/18 at 12:30; Stop at 12:47; Status DC Prednisone (Prednisone) 40 mg DAILY PO ; Start 05/14/18 at 09:00; Stop 05/14/18 at 09:00; Status DC Levofloxacin (Levaquin) 500 mg DAILY06 PO ; Start 05/15/18 at 13:00 Active Scripts Active Colace (Docusate Sodium) 100 Mg Capsule 100 Mg PO BID Reported Elizabeth Antifungal (Miconazole Nitrate) 142 Gm Cream..g. 142 Gm TP BID PRN Nystatin 15 Gm Powder 1 Kaylan TP BID Colace (Docusate Sodium) 100 Mg Capsule 1 Cap PO DAILY Vitamin D (Cholecalciferol (Vitamin D3)) 2,000 Unit Capsule 5,000 Unit PO DAILY Centrum Silver Tablet (Multivits-Min/Fa/Lycopene/Lut) 1 Each Tablet 1 Each PO DAILY Lasix (Furosemide) 40 Mg Tablet 1 Tab PO DAILY Potassium Chloride 20 Meq Tablet.er 20 Meq PO DAILY Ipratropium [place] 0.2 Mg/1 Ml Solution 0.5 Mg NEB QID Vitamin D (Cholecalciferol (Vitamin D3)) 1,000 Unit Capsule 1 Cap PO DAILY Mirapex (Pramipexole Di-Hcl) 0.25 Mg Tablet 1.5 Mg PO TID Sinemet 25-100 Mg Tablet (Carbidopa/Levodopa) 1 Each Tablet 1 Tab PO QID 30 Days take 1 tablet four times a day, add an additional tablet to the afternoon dose Zyrtec (Cetirizine Hcl) 10 Mg Tablet 1 Tab PO DAILY Vitals/I & O Vital Sign - Last 24 Hours 05/14/18 05/14/18 05/14/18 05/14/18 11:45 15:00 15:21 19:50 Temp 96.0 97.9 96.0 97.9 Pulse 70 73 Resp 20 16 B/P (MAP) 149/58 (88) 131/76 (94) Pulse Ox 94 91 O2 Delivery Nasal Cannula Nasal Cannula Nasal Cannula Nasal Cannula O2 Flow Rate 3.0 2.0 3.0 2.0 05/14/18 05/14/18 05/14/18 05/15/18 20:16 20:20 23:35 03:28 Temp 97.1 97.1 Pulse 73 89 Resp 16 16 B/P (MAP) 145/55 (85) 148/89 (108) Pulse Ox 90 95 O2 Delivery Nasal Cannula Nasal Cannula Nasal Cannula Nasal Cannula O2 Flow Rate 3.0 3.0 2.0 2.0 05/15/18 05/15/18 07:00 08:06 Temp 98.1 98.1 Pulse 74 Resp 22 B/P (MAP) 100/50 (67) Pulse Ox 91 O2 Delivery Nasal Cannula Nasal Cannula O2 Flow Rate 2.0 3.0 Intake and Output 05/14/18 05/14/18 05/15/18 15:00 23:00 07:00 Intake Total 540 ml 180 ml Balance 540 ml 180 ml DARELL CORNELL MD May 15, 2018 11:13
[2018-05-15] MEDS ORDERED: levOFLOXacin PER PHARMACY. MC PRN (11:15)
[2018-05-15] MEDS ORDERED: FUROSEMIDE 40 MG/4 ML VIAL. IVP ONE (11:15)
[2018-05-15] MEDS ORDERED: AMINO AC 3%/ELECTROLYTE/GLYCER 1,000 ML IV SCH (11:15)
[2018-05-15 11:27] LABS: BASO % 1 % (0-3); EOS # 0.2 x10^3/uL (0.0-0.7); EOS % 2 % (0-3); HEMATOCRIT 44.6 % (39.0-53.0); HEMOGLOBIN 14.9 g/dL (13.0-17.5); LYMPH # 0.7 x10^3/uL (1.0-4.8); LYMPH % 7 % (24-48); MEAN CORPUSCULAR HEMOGLOBIN 28 pg (25-35); MEAN CORPUSCULAR HGB CONC 33 g/dL (31-37); MEAN CORPUSCULAR VOLUME 85 fL (79-100); MONO # 0.9 x10^3/uL (0.0-1.1); MONO % 9 % (0-9); NEUT # 8.3 x10^3uL (1.8-7.7); NEUT % 82 % (31-73); PLATELET COUNT 134 x10^3/uL (140-400); RED BLOOD COUNT 5.25 x10^6/uL (4.30-5.70); RED CELL DISTRIBUTION WIDTH 16.6 % (11.5-14.5); WHITE BLOOD COUNT 10.1 x10^3/uL (4.0-11.0)
[2018-05-15] MEDS: SCOPOLAMINE 1.5MG PATCH. TD SCH (11:30)
--- NOTE | 2018-05-15 14:04 | RAD ---
CT brain without contrast. HISTORY: Confusion CT scan of brain was done without contrast. There is no intracranial hemorrhage or subdural hematoma. There is no mass or shift of the midline. Ventricles are normal in size. The patient is asymmetrically positioned. Sinuses are clear. There is a possible old lacunar infarct in the anterior limb of the internal capsule on the left. IMPRESSION: 1. No intracranial hemorrhage or acute finding noted. PQRS Compliance Statement: One or more of the following individualized dose reduction techniques were utilized for this examination: 1. Automated exposure control 2. Adjustment of the mA and/or kV according to patient size 3. Use of iterative reconstruction technique Electronically signed by: Arturo Up MD (05/15/2018 2:01 PM) [facility]
[2018-05-15 15:00] VITALS: BP 114/57
--- NOTE | 2018-05-15 19:11 | NUR ---
Pt was awake and mumbling this morning. I was able to understand communications at times. Prior to lunch, pt had a coughing spell. Appeared to have difficulty clearing secretions. Dr Barajas was on the unit and went to see ptNubia Anderson with Speech Therapy eval pt and as long as the pt does not talk when eating, the diet is appropriate. Pt continues to be at risk for aspirating. Due to pts Parkinson Disease, he does not understand to follow commands. As the day went on, the pt was able to rest. Vital signs have remained stable. He had been up and rambling for several days without rest. I spoke to Dr Tse and his thoughts were the sinemet does not work as effective when pts are on antibiotics. He feels as though this is the encephalopathy. Decision was made to keep pt NPO and re eval in the morning. Received orders from Dr Neal for PPN. and son have visited today and discussed POC with both.
[2018-05-15 19:58] VITALS: BP 114/58
[2018-05-15] MEDS: AMINO AC 3%/ELECTROLYTE/GLYCER 1,000 ML IV SCH (20:55)
[2018-05-15 23:15] VITALS: BP 122/75
[2018-05-16 03:15] VITALS: BP 121/85
[2018-05-16 07:20] VITALS: BP 138/68
[2018-05-16] MEDS: POTASSIUM CHLORIDE 20 MEQ TABLET.ER. PO SCH (08:00)
[2018-05-16] MEDS: IPRATRPIUM/ALBUTEROL 0.5/2.5MG 3 ML NEBU. NEB SCH ×4 (08:19→20:27)
--- NOTE | 2018-05-16 08:57 | PDOC ---
PROGRESS NOTES Assessment Parkinson's, he is on pramipexole and carbidopa/ levodopa Diabetic neuropathy Possible dysphagia Possible pneumonia. Delirium appears better. 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 Therefore, continue current doses. Rehabilitation modalities Swallow precautions Treat possible pneumonia and other medical conditions. SNU Subjective Indicates no pain Objective Vital Signs Date Time Temp Pulse Resp B/P (MAP) Pulse Ox O2 Delivery O2 Flow Rate FiO2 05/16/18 08:23 92 Nasal Cannula 3.0 05/16/18 07:20 97.8 77 20 138/68 (91) 97.8 Intake and Output 05/16/18 06:59 Intake Total 320 ml Balance 320 ml Intake Oral 320 ml # Voids 4 PHYSICAL EXAM Alert. Severe lingual dysarthria, tongue looks sore, able to follow commands PERRL. EOMI. CN: no focal findings. Muscle tone: Mild cogwheel rigidity Muscle strength: 4/5 DTR: 0-1+ Plantar reflex: flexor Gait: not examined in bed. Sensory exam: no abnormal findings. No cerebellar signs elicited. No tremor, does have bradykinesia Review of Relevant I have reviewed the following items brett (where applicable) has been applied. Labs Laboratory Tests Test 05/14/18 09:30 05/15/18 11:20 05/15/18 21:03 05/16/18 05:42 White Blood Count 12.1 x10^3/uL (4.0-11.0) 10.1 x10^3/uL (4.0-11.0) Red Blood Count 5.04 x10^6/uL (4.30-5.70) 5.25 x10^6/uL (4.30-5.70) Hemoglobin 14.0 g/dL (13.0-17.5) 14.9 g/dL (13.0-17.5) Hematocrit 43.2 % (39.0-53.0) 44.6 % (39.0-53.0) Mean Corpuscular Volume 86 fL (79-100) 85 fL (79-100) Mean Corpuscular Hemoglobin 28 pg (25-35) 28 pg (25-35) Mean Corpuscular Hemoglobin Concent 32 g/dL (31-37) 33 g/dL (31-37) Red Cell Distribution Width 16.3 % (11.5-14.5) 16.6 % (11.5-14.5) Platelet Count 117 x10^3/uL (140-400) 134 x10^3/uL (140-400) Neutrophils (%) (Auto) 88 % (31-73) 82 % (31-73) Lymphocytes (%) (Auto) 6 % (24-48) 7 % (24-48) Monocytes (%) (Auto) 6 % (0-9) 9 % (0-9) Eosinophils (%) (Auto) 0 % (0-3) 2 % (0-3) Basophils (%) (Auto) 0 % (0-3) 1 % (0-3) Neutrophils # (Auto) 10.6 x10^3uL (1.8-7.7) 8.3 x10^3uL (1.8-7.7) Lymphocytes # (Auto) 0.7 x10^3/uL (1.0-4.8) 0.7 x10^3/uL (1.0-4.8) Monocytes # (Auto) 0.7 x10^3/uL (0.0-1.1) 0.9 x10^3/uL (0.0-1.1) Eosinophils # (Auto) 0.0 x10^3/uL (0.0-0.7) 0.2 x10^3/uL (0.0-0.7) Basophils # (Auto) 0.0 x10^3/uL (0.0-0.2) 0.0 x10^3/uL (0.0-0.2) Erythrocyte Sedimentation Rate 30 (0-15) Glucose (Fingerstick) 91 mg/dL (70-99) 94 mg/dL (70-99) Laboratory Tests Test 05/15/18 11:20 05/15/18 21:03 05/16/18 05:42 White Blood Count 10.1 x10^3/uL (4.0-11.0) Red Blood Count 5.25 x10^6/uL (4.30-5.70) Hemoglobin 14.9 g/dL (13.0-17.5) Hematocrit 44.6 % (39.0-53.0) Mean Corpuscular Volume 85 fL (79-100) Mean Corpuscular Hemoglobin 28 pg (25-35) Mean Corpuscular Hemoglobin Concent 33 g/dL (31-37) Red Cell Distribution Width 16.6 % (11.5-14.5) Platelet Count 134 x10^3/uL (140-400) Neutrophils (%) (Auto) 82 % (31-73) Lymphocytes (%) (Auto) 7 % (24-48) Monocytes (%) (Auto) 9 % (0-9) Eosinophils (%) (Auto) 2 % (0-3) Basophils (%) (Auto) 1 % (0-3) Neutrophils # (Auto) 8.3 x10^3uL (1.8-7.7) Lymphocytes # (Auto) 0.7 x10^3/uL (1.0-4.8) Monocytes # (Auto) 0.9 x10^3/uL (0.0-1.1) Eosinophils # (Auto) 0.2 x10^3/uL (0.0-0.7) Basophils # (Auto) 0.0 x10^3/uL (0.0-0.2) Glucose (Fingerstick) 91 mg/dL (70-99) 94 mg/dL (70-99) Microbiology 05/12/18 Blood Culture - Preliminary, Resulted NO GROWTH AFTER 3 DAYS Medications Current Medications Sodium Chloride 500 ml @ 500 mls/hr 1X ONCE IV Last administered on at 16:05; Start 05/12/18 at 15:30; Stop 05/12/18 at 16:29; Status DC Vancomycin HCl (Vanco Per Pharmacy) 1 each PRN DAILY PRN MC SEE COMMENTS Last administered on 05/14/18at 07:54; Start 05/12/18 at 17:00; Stop 05/14/18 at 08:57 ; Status DC Levofloxacin/ Dextrose (Levaquin Per Pharmacy) 1 each PRN DAILY PRN MC SEE COMMENTS; Start 05/12/18 at 17:00; Stop 05/14/18 at 09:01; Status DC Levofloxacin/ Dextrose 150 ml @ 100 mls/hr 1X ONCE IV Last administered on at 17:30; Start 05/12/18 at 17:00; Stop 05/12/18 at 18:29; Status DC Vancomycin HCl 2 gm/Sodium Chloride 500 ml @ 250 mls/hr 1X ONCE IV Last administered on 05/12/18at 19:12; Start 05/12/18 at 18:00; Stop 05/12/18 at 19:59 ; Status DC Levofloxacin/ Dextrose 150 ml @ 100 mls/hr Q24H IV Last administered on at 17:20; Start 05/13/18 at 17:00; Stop 05/14/18 at 08:57; Status DC Vancomycin HCl 1.75 gm/Sodium Chloride 500 ml @ 250 mls/hr Q12H IV Last administered on 05/14/18at 07:32; Start 05/13/18 at 07:00; Stop 05/14/18 at 08:57 ; Status DC Vancomycin HCl (Vancomycin Trough Level) 1 each 1X ONCE MC Last administered on 05/14/18at 07:15; Start 05/14/18 at 06:30; Stop 05/14/18 at 06:31; Status DC Lactobacillus Rhamnosus (Culturelle) 1 cap BID PO Last administered on at 08:52; Start 05/12/18 at 21:00; Stop 05/15/18 at 11:10; Status DC Carbidopa/Levodopa (Sinemet 25/100) 1 tab QID PO Last administered on at 08:53; Start 05/12/18 at 22:30 Cetirizine HCl (ZyrTEC) 10 mg DAILY PO Last administered on 05/15/18at 08:53; Start 05/13/18 at 09:00; Stop 05/15/18 at 11:10; Status DC Docusate Sodium (Colace) 100 mg DAILY PO ; Start 05/13/18 at 09:00; Stop at 09:00; Status DC Docusate Sodium (Colace) 100 mg BID PO Last administered on 05/15/18at 08:52; Start 05/13/18 at 09:00 Ipratropium Dora (Atrovent) 0.5 mg RTQID NEB Last administered on 05/13/18at 07:30; Start 05/13/18 at 08:00; Stop 05/13/18 at 12:03; Status DC Miconazole Nitrate (Monistat-Derm) 1 kaylan PRN BID PRN TP RASH; Start 05/12/18 at 22:15 Nystatin (Nystop) 1 kaylan BID TP Last administered on 05/15/18at 20:55; Start at 09:00 Pramipexole Dihydrochloride (miraPEX) 1.5 mg [id number] PO Last administered on at 08:51; Start 05/12/18 at 22:30 Barium Sulfate (Varibar Thin Liquid Apple) 148 gm 1X ONCE PO ; Start 05/13/18 at 11:15; Stop 05/13/18 at 11:16; Status DC Acetaminophen (Tylenol) 500 mg PRN Q6HRS PRN PO MILD PAIN / TEMP; Start at 12:00 Acetaminophen/ Codeine Phosphate (Tylenol #3) 1 tab PRN Q6HRS PRN PO MODERATE PAIN; Start 05/13/18 at 12:00; Stop 05/15/18 at 11:10; Status DC Albuterol/ Ipratropium (Duoneb) 3 ml RTQID NEB Last administered on 05/16/18at 08:19; Start 05/13/18 at 12:00 Temazepam (Restoril) 7.5 mg PRN QHS PRN PO INSOMNIA; Start 05/13/18 at 12:00 Ondansetron HCl (Zofran) 4 mg PRN Q6HRS PRN IV NAUSEA/VOMITING; Start 05/13/18 at 12:00 Ondansetron HCl (Zofran Odt) 4 mg PRN Q6HRS PRN PO NAUSEA/VOMITING; Start 05/13 at 12:00 Furosemide (Lasix) 40 mg DAILY PO Last administered on 05/15/18at 08:52; Start 05/13/18 at 13:00; Stop 05/15/18 at 11:10; Status DC Vitamin D (Vitamin D3) 5,000 unit DAILY PO Last administered on 05/15/18at 08:52 ; Start 05/13/18 at 13:00; Stop 05/15/18 at 11:10; Status DC Multivitamins (Thera M Plus) 1 tab DAILY PO Last administered on 05/15/18at 08: 51; Start 05/13/18 at 13:00; Stop 05/15/18 at 11:10; Status DC Potassium Chloride (Klor-Con) 20 meq DAILYWBKFT PO Last administered on at 08:53; Start 05/13/18 at 13:00; Stop 05/15/18 at 11:10; Status DC Prednisone (Prednisone) 60 mg 1X ONCE PO ; Start 05/13/18 at 12:30; Stop at 12:47; Status DC Prednisone (Prednisone) 40 mg DAILY PO ; Start 05/14/18 at 09:00; Stop 05/14/18 at 09:00; Status DC Levofloxacin (Levaquin) 500 mg DAILY06 PO ; Start 05/15/18 at 13:00; Stop at 13:00; Status DC Levofloxacin/ Dextrose (Levaquin Per Pharmacy) 1 each PRN DAILY PRN MC SEE COMMENTS; Start 05/15/18 at 11:15 Furosemide (Lasix) 40 mg DAILY IVP ; Start 05/16/18 at 09:00 Scopolamine (Transderm-Scop) 1 patch Q3DAYS TD Last administered on 05/15/18at 11:30; Start 05/15/18 at 11:30 Amino Acids/ Glycerin/ Electrolytes 1,000 ml @ 75 mls/hr [id number] IV ; Start at 11:15; Stop 05/15/18 at 11:40; Status DC Furosemide (Lasix) 40 mg 1X ONCE IVP Last administered on 05/15/18at 14:31; Start 05/15/18 at 11:15; Stop 05/15/18 at 11:16; Status DC Levofloxacin (Levaquin) 750 mg DAILY06 PO ; Start 05/15/18 at 12:00 Multivitamins (Thera M Plus) 1 tab DAILY PO ; Start 05/15/18 at 12:30 Potassium Chloride (Klor-Con) 20 meq DAILYWBKFT PO ; Start 05/15/18 at 12:30 Amino Acids/ Glycerin/ Electrolytes 1,000 ml @ 80 mls/hr [id number] IV Last administered on 05/15/18at 20:55; Start 05/15/18 at 18:30 Active Scripts Active Colace (Docusate Sodium) 100 Mg Capsule 100 Mg PO BID Reported Elizabeth Antifungal (Miconazole Nitrate) 142 Gm Cream..g. 142 Gm TP BID PRN Nystatin 15 Gm Powder 1 Kaylan TP BID Colace (Docusate Sodium) 100 Mg Capsule 1 Cap PO DAILY Vitamin D (Cholecalciferol (Vitamin D3)) 2,000 Unit Capsule 5,000 Unit PO DAILY Centrum Silver Tablet (Multivits-Min/Fa/Lycopene/Lut) 1 Each Tablet 1 Each PO DAILY Lasix (Furosemide) 40 Mg Tablet 1 Tab PO DAILY Potassium Chloride 20 Meq Tablet.er 20 Meq PO DAILY Ipratropium Dora 0.2 Mg/1 Ml Solution 0.5 Mg NEB QID Vitamin D (Cholecalciferol (Vitamin D3)) 1,000 Unit Capsule 1 Cap PO DAILY Mirapex (Pramipexole Di-Hcl) 0.25 Mg Tablet 1.5 Mg PO TID Sinemet 25-100 Mg Tablet (Carbidopa/Levodopa) 1 Each Tablet 1 Tab PO QID 30 Days take 1 tablet four times a day, add an additional tablet to the afternoon dose Zyrtec (Cetirizine Hcl) 10 Mg Tablet 1 Tab PO DAILY Vitals/I & O Vital Sign - Last 24 Hours 05/15/18 05/15/18 05/15/18 05/15/18 11:00 11:44 15:00 15:21 Temp 98.4 98.5 98.4 98.5 Pulse 75 76 Resp 20 22 B/P (MAP) 106/65 (79) 114/57 (76) Pulse Ox 88 91 O2 Delivery Nasal Cannula Nasal Cannula Nasal Cannula Nasal Cannula O2 Flow Rate 2.0 3.0 2.0 3.0 05/15/18 05/15/18 05/15/18 05/15/18 19:52 19:58 20:00 23:15 Temp 98.2 98.3 98.2 98.3 Pulse 75 80 Resp 20 B/P (MAP) 114/58 (76) 122/75 (91) Pulse Ox 92 92 O2 Delivery Nasal Cannula Nasal Cannula Nasal Cannula Nasal Cannula O2 Flow Rate 3.0 2.0 3.0 2.0 05/16/18 05/16/18 05/16/18 03:15 07:20 08:23 Temp 98.4 97.8 98.4 97.8 Pulse 76 77 Resp 16 20 B/P (MAP) 121/85 (97) 138/68 (91) Pulse Ox 91 92 92 O2 Delivery Nasal Cannula Nasal Cannula Nasal Cannula O2 Flow Rate 2.0 2.0 3.0 Intake and Output 05/15/18 05/15/18 05/16/18 14:59 22:59 06:59 Intake Total 320 ml 0 ml 0 ml Balance 320 ml 0 ml 0 ml IGOR GARLAND MD May 16, 2018 08:57
[2018-05-16] MEDS: DOCUSATE SODIUM 100 MG CAPSULE. PO SCH ×2 (09:00→20:22)
[2018-05-16] MEDS: CARBIDOPA/LEVODOPA 25/100MG TABLET PO SCH ×4 (09:00→20:23)
[2018-05-16] MEDS: PRAMIPEXOLE 1 MG TABLET. PO SCH ×3 (09:00→20:23)
[2018-05-16] MEDS: MULTIVITAMIN with MINERAL TABLET. PO SCH (09:00)
[2018-05-16] MEDS: AMINO AC 3%/ELECTROLYTE/GLYCER 1,000 ML IV SCH ×2 (09:25→20:22)
--- NOTE | 2018-05-16 10:46 | PDOC ---
PULMONARY PROGRESS NOTES Subjective difficult to vocalize Vitals Vital Signs Date Time Temp Pulse Resp B/P (MAP) Pulse Ox O2 Delivery O2 Flow Rate FiO2 05/16/18 08:23 92 Nasal Cannula 3.0 05/16/18 07:20 97.8 77 20 138/68 (91) 97.8 General: No acute distress HEENT: Other (nc at perrl) Lungs: Crackles Cardiovascular: S1, S2 Abdomen: Soft, Non-tender Extremities: Other Skin: Warm Labs Laboratory Tests Test 05/15/18 11:20 05/15/18 21:03 05/16/18 05:42 White Blood Count 10.1 x10^3/uL (4.0-11.0) Red Blood Count 5.25 x10^6/uL (4.30-5.70) Hemoglobin 14.9 g/dL (13.0-17.5) Hematocrit 44.6 % (39.0-53.0) Mean Corpuscular Volume 85 fL (79-100) Mean Corpuscular Hemoglobin 28 pg (25-35) Mean Corpuscular Hemoglobin Concent 33 g/dL (31-37) Red Cell Distribution Width 16.6 % (11.5-14.5) Platelet Count 134 x10^3/uL (140-400) Neutrophils (%) (Auto) 82 % (31-73) Lymphocytes (%) (Auto) 7 % (24-48) Monocytes (%) (Auto) 9 % (0-9) Eosinophils (%) (Auto) 2 % (0-3) Basophils (%) (Auto) 1 % (0-3) Neutrophils # (Auto) 8.3 x10^3uL (1.8-7.7) Lymphocytes # (Auto) 0.7 x10^3/uL (1.0-4.8) Monocytes # (Auto) 0.9 x10^3/uL (0.0-1.1) Eosinophils # (Auto) 0.2 x10^3/uL (0.0-0.7) Basophils # (Auto) 0.0 x10^3/uL (0.0-0.2) Glucose (Fingerstick) 91 mg/dL (70-99) 94 mg/dL (70-99) Laboratory Tests Test 05/15/18 11:20 05/15/18 21:03 05/16/18 05:42 White Blood Count 10.1 x10^3/uL (4.0-11.0) Red Blood Count 5.25 x10^6/uL (4.30-5.70) Hemoglobin 14.9 g/dL (13.0-17.5) Hematocrit 44.6 % (39.0-53.0) Mean Corpuscular Volume 85 fL (79-100) Mean Corpuscular Hemoglobin 28 pg (25-35) Mean Corpuscular Hemoglobin Concent 33 g/dL (31-37) Red Cell Distribution Width 16.6 % (11.5-14.5) Platelet Count 134 x10^3/uL (140-400) Neutrophils (%) (Auto) 82 % (31-73) Lymphocytes (%) (Auto) 7 % (24-48) Monocytes (%) (Auto) 9 % (0-9) Eosinophils (%) (Auto) 2 % (0-3) Basophils (%) (Auto) 1 % (0-3) Neutrophils # (Auto) 8.3 x10^3uL (1.8-7.7) Lymphocytes # (Auto) 0.7 x10^3/uL (1.0-4.8) Monocytes # (Auto) 0.9 x10^3/uL (0.0-1.1) Eosinophils # (Auto) 0.2 x10^3/uL (0.0-0.7) Basophils # (Auto) 0.0 x10^3/uL (0.0-0.2) Glucose (Fingerstick) 91 mg/dL (70-99) 94 mg/dL (70-99) Medications Active Scripts Medications Dose Route/Sig Max Daily Dose Days Date Category Dose Instructions Elizabeth Antifungal (Miconazole Nitrate) 142 Gm Cream..g. 142 Gm TP BID PRN 05/12/18 Reported Nystatin 15 Gm Powder 1 Kaylan TP BID 05/12/18 Reported Colace (Docusate Sodium) 100 Mg Capsule 1 Cap PO DAILY 04/13/18 Reported Vitamin D (Cholecalciferol (Vitamin D3)) 2,000 Unit Capsule 5,000 Unit PO DAILY 04/13/18 Reported Centrum Silver Tablet (Multivits-Min/Fa/Lycopene/Lut) 1 Each Tablet 1 Each PO DAILY 04/13/18 Reported Lasix (Furosemide) 40 Mg Tablet 1 Tab PO DAILY 04/13/18 Reported Potassium Chloride 20 Meq Tablet.er 20 Meq PO DAILY 04/13/18 Reported Ipratropium [place] 0.2 Mg/1 Ml Solution 0.5 Mg NEB QID 04/13/18 Reported Vitamin D (Cholecalciferol (Vitamin D3)) 1,000 Unit Capsule 1 Cap PO DAILY 04/13/18 Reported Mirapex (Pramipexole Di-Hcl) 0.25 Mg Tablet 1.5 Mg PO TID 04/13/18 Reported Sinemet 25-100 Mg Tablet (Carbidopa/Levodopa) 1 Each Tablet 1 Tab PO QID 30 07/17/15 Reported take 1 tablet four times a day, add an additional tablet to the afternoon dose Zyrtec (Cetirizine Hcl) 10 Mg Tablet 1 Tab PO DAILY 03/20/15 Reported Colace (Docusate Sodium) 100 Mg Capsule 100 Mg PO BID 04/06/14 Rx Impression . IMPRESSION: 1. Aspiration pneumonia. 2. dysphagia 3. Persistent bilateral pulmonary infiltrates related to chronic aspiration. 4. History of chronic respiratory failure. As indicated above, the patient was hospitalized here, treated for acute respiratory distress syndrome, underwent tracheotomy and eventually was decannulated. 5. Parkinsonism. 6. Diabetic neuropathy. 7. Generalized weakness. 8. Toxic metabolic encephalopathy present upon admission, improved. Plan . PLAN: 1. cont abx 2. The patient is status post bronchoscopy. Cultures at that time were negative. 2. Follow speech therapist's recommendation for diet./ On PPN./ palliative meeting to discuss goal of care and custodial nutrition option 3. Continue other medication. 4. Continue oxygen supplementation. 02 titration. 5. BD 6. elevate HOB discussed w pts PATITO ANTONIO MD May 16, 2018 10:46
[2018-05-16 11:15] VITALS: BP 143/69
--- NOTE | 2018-05-16 11:16 | NUR ---
SW following pt. Discussed with RN and pt might benefit from Palliative consult to address goals of care. SW will continue to follow. ISAIAH Physician.
--- NOTE | 2018-05-16 11:35 | PDOC2 ---
PALLIATIVE CARE Palliative Care Note Palliative Care Consult requested by Dr. Neal to address goals of care. Medical Assessment per medical record; 1. Aspiration pneumonia. 2. dysphagia 3. Persistent bilateral pulmonary infiltrates related to chronic aspiration. 4. History of chronic respiratory failure. As indicated above, the patient was hospitalized here, treated for acute respiratory distress syndrome, underwent tracheotomy and eventually was decannulated. 5. Parkinsonism. 6. Diabetic neuropathy. 7. Generalized weakness. 8. Toxic metabolic encephalopathy present upon admission, improved. Dr. Albarran met with family. Reviewed medical condition. Discussed Code Status ; requests DNR/DNI. sons in agreement with this. Met with --Nelli, son Hood and Chuck and his Kourtney. Discussed above medical condition along with Dr. Albarran review of same. Patient with change in mental status last 24-48 hours. would like input from Dr. Claros before making a decision about feeding tube. Discussed option of no feeding and addressed concern of starvation. Discussed Hospice as option as well. Discussed Discharge. Patient has stated he would like to be home but will wait for other decisions. Patient has received Ativan. Family would like to wait before making any other decisions. Outside the Hospital DNR /DNI form completed. Above reviewed with Jake MON. NEFTALI PERDOMO May 16, 2018 11:34
[2018-05-16] MEDS: NYSTATIN TOPICAL POWDER 15GM BOTTLE. TP SCH ×2 (12:04→20:23)
[2018-05-16] MEDS: FUROSEMIDE 40 MG/4 ML VIAL. IVP SCH (12:04)
--- NOTE | 2018-05-16 13:05 | PDOC ---
PROGRESS NOTES Chief Complaint Chief Complaint Parkinson's, with dementia and delirium fxs - he is on pramipexole and carbidopa / levodopa Diabetic neuropathy Possible dysphagia Possible pneumonia. Dysautonomia, from Parkinsons Urinary incontinence Chronic aspiration - being covered with levaquin Pulmonary congestion on chest x-ray Atelectasis History of Present Illness History of Present Illness 72 yo M with PMHx parkinsons 9 years advanced with multiple medical problems over the past few months admitted for aspiration pneumonia. 05/14-:Video swallow proves overt aspiration and abated upon resumption of honey thickened, Family at bedside, patient lives with the at [place], Patient and family agreeable to SNU asks me about my opinion in increasing his Sinemet which she has been on the dose for many years in the background of recent delirium features, mention of some autonomic involvement now, hypotension at home causing near falls. Would like Dr. Claros contacted about admission Very agitated this morning. notes that he never yells at baseline. Son notes this as well and notes that patient apologized to the family for "being a failure". Patient notes 3 additional people in the room and has been writing out S.O.S. He is frustrated no one understands him. His relays that before the hospital stay he was "harmlessly hallucinating" at home, seeing [employer] at the table and additional place settings, but his current mental status frightens the family. I spoke with family in waiting room about code status, they have made it clear he does not wish to be on the ventilator and would like to be DNR, though he did not have advanced directives. Plan: NOthing By mouth for now Was previously on dysphagia 3 with honey thickened Social work consulted, family agreeable to SNU CODE - DNR after d/w famlyi Check CBC again, last WBC was 12 with a high sedimentation rate. Lasix 40 IV now then daily ProcalAmine low dose [employer] evaluation again when less confused Changed all by mouth meds to IV Okay to have Parkinson's and Requip meds with sips of meds Dvt ppx Suction when necessary Trial of scopolamine patch-unsure if this will help at all. Ativan for agitation Very high fall risk Discussed with RN I have recommended against PEG tube given his recent signs of autonomic involvement with his parkinsons, though he has previously had a PEG and palliative care has been consulted per family wishes. Vitals Vitals Vital Signs Date Time Temp Pulse Resp B/P (MAP) Pulse Ox O2 Delivery O2 Flow Rate FiO2 05/16/18 12:24 93 Nasal Cannula 3.0 05/16/18 11:15 97.7 77 20 143/69 (93) 97.7 Physical Exam General: moderate distress Heart: Regular rate, Normal S1, Normal S2, No murmurs Lungs: Crackles Abdomen: Normal bowel sounds, No tenderness Extremities: No clubbing, No cyanosis, No edema Skin: No rashes, No breakdown, No significant lesion Labs LABS Laboratory Tests Test 05/15/18 21:03 05/16/18 05:42 05/16/18 11:55 Glucose (Fingerstick) 91 mg/dL (70-99) 94 mg/dL (70-99) 108 mg/dL (70-99) Comment Review of Relevant I have reviewed the following items brett (where applicable) has been applied. Labs Laboratory Tests Test 05/15/18 11:20 05/15/18 21:03 05/16/18 05:42 05/16/18 11:55 White Blood Count 10.1 x10^3/uL (4.0-11.0) Red Blood Count 5.25 x10^6/uL (4.30-5.70) Hemoglobin 14.9 g/dL (13.0-17.5) Hematocrit 44.6 % (39.0-53.0) Mean Corpuscular Volume 85 fL (79-100) Mean Corpuscular Hemoglobin 28 pg (25-35) Mean Corpuscular Hemoglobin Concent 33 g/dL (31-37) Red Cell Distribution Width 16.6 % (11.5-14.5) Platelet Count 134 x10^3/uL (140-400) Neutrophils (%) (Auto) 82 % (31-73) Lymphocytes (%) (Auto) 7 % (24-48) Monocytes (%) (Auto) 9 % (0-9) Eosinophils (%) (Auto) 2 % (0-3) Basophils (%) (Auto) 1 % (0-3) Neutrophils # (Auto) 8.3 x10^3uL (1.8-7.7) Lymphocytes # (Auto) 0.7 x10^3/uL (1.0-4.8) Monocytes # (Auto) 0.9 x10^3/uL (0.0-1.1) Eosinophils # (Auto) 0.2 x10^3/uL (0.0-0.7) Basophils # (Auto) 0.0 x10^3/uL (0.0-0.2) Glucose (Fingerstick) 91 mg/dL (70-99) 94 mg/dL (70-99) 108 mg/dL (70-99) Laboratory Tests Test 05/15/18 21:03 05/16/18 05:42 05/16/18 11:55 Glucose (Fingerstick) 91 mg/dL (70-99) 94 mg/dL (70-99) 108 mg/dL (70-99) Microbiology 05/12/18 Blood Culture - Preliminary, Resulted NO GROWTH AFTER 3 DAYS Medications Current Medications Sodium Chloride 500 ml @ 500 mls/hr 1X ONCE IV Last administered on at 16:05; Start 05/12/18 at 15:30; Stop 05/12/18 at 16:29; Status DC Vancomycin HCl (Vanco Per Pharmacy) 1 each PRN DAILY PRN MC SEE COMMENTS Last administered on 05/14/18at 07:54; Start 05/12/18 at 17:00; Stop 05/14/18 at 08:57 ; Status DC Levofloxacin/ Dextrose (Levaquin Per Pharmacy) 1 each PRN DAILY PRN MC SEE COMMENTS; Start 05/12/18 at 17:00; Stop 05/14/18 at 09:01; Status DC Levofloxacin/ Dextrose 150 ml @ 100 mls/hr 1X ONCE IV Last administered on at 17:30; Start 05/12/18 at 17:00; Stop 05/12/18 at 18:29; Status DC Vancomycin HCl 2 gm/Sodium Chloride 500 ml @ 250 mls/hr 1X ONCE IV Last administered on 05/12/18at 19:12; Start 05/12/18 at 18:00; Stop 05/12/18 at 19:59 ; Status DC Levofloxacin/ Dextrose 150 ml @ 100 mls/hr Q24H IV Last administered on at 17:20; Start 05/13/18 at 17:00; Stop 05/14/18 at 08:57; Status DC Vancomycin HCl 1.75 gm/Sodium Chloride 500 ml @ 250 mls/hr Q12H IV Last administered on 05/14/18 07:32; Start 05/13/18 at 07:00; Stop 05/14/18 at 08:57 ; Status DC Vancomycin HCl (Vancomycin Trough Level) 1 each 1X ONCE MC Last administered on 05/14/18at 07:15; Start 05/14/18 at 06:30; Stop 05/14/18 at 06:31; Status DC Lactobacillus Rhamnosus (Culturelle) 1 cap BID PO Last administered on at 08:52; Start 05/12/18 at 21:00; Stop 05/15/18 at 11:10; Status DC Carbidopa/Levodopa (Sinemet 25/100) 1 tab QID PO Last administered on at 08:53; Start 05/12/18 at 22:30 Cetirizine HCl (ZyrTEC) 10 mg DAILY PO Last administered on 05/15/18at 08:53; Start 05/13/18 at 09:00; Stop 05/15/18 at 11:10; Status DC Docusate Sodium (Colace) 100 mg DAILY PO ; Start 05/13/18 at 09:00; Stop at 09:00; Status DC Docusate Sodium (Colace) 100 mg BID PO Last administered on 05/15/18at 08:52; Start 05/13/18 at 09:00 Ipratropium [place] (Atrovent) 0.5 mg RTQID NEB Last administered on 05/13/18at 07:30; Start 05/13/18 at 08:00; Stop 05/13/18 at 12:03; Status DC Miconazole Nitrate (Monistat-Derm) 1 kaylan PRN BID PRN TP RASH; Start 05/12/18 at 22:15 Nystatin (Nystop) 1 kaylan BID TP Last administered on 05/16/18at 12:04; Start at 09:00 Pramipexole Dihydrochloride (miraPEX) 1.5 mg [id number] PO Last administered on at 08:51; Start 05/12/18 at 22:30 Barium Sulfate (Varibar Thin Liquid Apple) 148 gm 1X ONCE PO ; Start 05/13/18 at 11:15; Stop 05/13/18 at 11:16; Status DC Acetaminophen (Tylenol) 500 mg PRN Q6HRS PRN PO MILD PAIN / TEMP; Start at 12:00 Acetaminophen/ Codeine Phosphate (Tylenol #3) 1 tab PRN Q6HRS PRN PO MODERATE PAIN; Start 05/13/18 at 12:00; Stop 05/15/18 at 11:10; Status DC Albuterol/ Ipratropium (Duoneb) 3 ml RTQID NEB Last administered on 05/16/18at 12:23; Start 05/13/18 at 12:00 Temazepam (Restoril) 7.5 mg PRN QHS PRN PO INSOMNIA; Start 05/13/18 at 12:00 Ondansetron HCl (Zofran) 4 mg PRN Q6HRS PRN IV NAUSEA/VOMITING; Start 05/13/18 at 12:00 Ondansetron HCl (Zofran Odt) 4 mg PRN Q6HRS PRN PO NAUSEA/VOMITING; Start 05/13 at 12:00 Furosemide (Lasix) 40 mg DAILY PO Last administered on 05/15/18at 08:52; Start 05/13/18 at 13:00; Stop 05/15/18 at 11:10; Status DC Vitamin D (Vitamin D3) 5,000 unit DAILY PO Last administered on 05/15/18at 08:52 ; Start 05/13/18 at 13:00; Stop 05/15/18 at 11:10; Status DC Multivitamins (Thera M Plus) 1 tab DAILY PO Last administered on 05/15/18at 08: 51; Start 05/13/18 at 13:00; Stop 05/15/18 at 11:10; Status DC Potassium Chloride (Klor-Con) 20 meq DAILYWBKFT PO Last administered on at 08:53; Start 05/13/18 at 13:00; Stop 05/15/18 at 11:10; Status DC Prednisone (Prednisone) 60 mg 1X ONCE PO ; Start 05/13/18 at 12:30; Stop at 12:47; Status DC Prednisone (Prednisone) 40 mg DAILY PO ; Start 05/14/18 at 09:00; Stop 05/14/18 at 09:00; Status DC Levofloxacin (Levaquin) 500 mg DAILY06 PO ; Start 05/15/18 at 13:00; Stop at 13:00; Status DC Levofloxacin/ Dextrose (Levaquin Per Pharmacy) 1 each PRN DAILY PRN MC SEE COMMENTS; Start 05/15/18 at 11:15 Furosemide (Lasix) 40 mg DAILY IVP Last administered on 05/16/18at 12:04; Start 05/16/18 at 09:00 Scopolamine (Transderm-Scop) 1 patch Q3DAYS TD Last administered on 05/15/18at 11:30; Start 05/15/18 at 11:30 Amino Acids/ Glycerin/ Electrolytes 1,000 ml @ 75 mls/hr [id number] IV ; Start at 11:15; Stop 05/15/18 at 11:40; Status DC Furosemide (Lasix) 40 mg 1X ONCE IVP Last administered on 05/15/18at 14:31; Start 05/15/18 at 11:15; Stop 05/15/18 at 11:16; Status DC Levofloxacin (Levaquin) 750 mg DAILY06 PO ; Start 05/15/18 at 12:00 Multivitamins (Thera M Plus) 1 tab DAILY PO ; Start 05/15/18 at 12:30 Potassium Chloride (Klor-Con) 20 meq DAILYWBKFT PO ; Start 05/15/18 at 12:30 Amino Acids/ Glycerin/ Electrolytes 1,000 ml @ 80 mls/hr [id number] IV Last administered on 05/16/18at 09:25; Start 05/15/18 at 18:30 Lorazepam (Ativan) 0.5 mg PRN Q4HRS PRN IV ANXIETY / AGITATION Last administered on 05/16/18at 12:05; Start 05/16/18 at 12:00 Active Scripts Active Colace (Docusate Sodium) 100 Mg Capsule 100 Mg PO BID Reported Elizabeth Antifungal (Miconazole Nitrate) 142 Gm Cream..g. 142 Gm TP BID PRN Nystatin 15 Gm Powder 1 Kaylan TP BID Colace (Docusate Sodium) 100 Mg Capsule 1 Cap PO DAILY Vitamin D (Cholecalciferol (Vitamin D3)) 2,000 Unit Capsule 5,000 Unit PO DAILY Centrum Silver Tablet (Multivits-Min/Fa/Lycopene/Lut) 1 Each Tablet 1 Each PO DAILY Lasix (Furosemide) 40 Mg Tablet 1 Tab PO DAILY Potassium Chloride 20 Meq Tablet.er 20 Meq PO DAILY Ipratropium [place] 0.2 Mg/1 Ml Solution 0.5 Mg NEB QID Vitamin D (Cholecalciferol (Vitamin D3)) 1,000 Unit Capsule 1 Cap PO DAILY Mirapex (Pramipexole Di-Hcl) 0.25 Mg Tablet 1.5 Mg PO TID Sinemet 25-100 Mg Tablet (Carbidopa/Levodopa) 1 Each Tablet 1 Tab PO QID 30 Days take 1 tablet four times a day, add an additional tablet to the afternoon dose Zyrtec (Cetirizine Hcl) 10 Mg Tablet 1 Tab PO DAILY Vitals/I & O Vital Sign - Last 24 Hours 05/15/18 05/15/18 05/15/18 05/15/18 15:00 15:21 19:52 19:58 Temp 98.5 98.2 98.5 98.2 Pulse 76 75 Resp 22 20 B/P (MAP) 114/57 (76) 114/58 (76) Pulse Ox 91 92 O2 Delivery Nasal Cannula Nasal Cannula Nasal Cannula Nasal Cannula O2 Flow Rate 2.0 3.0 3.0 2.0 05/15/18 05/15/18 05/16/18 05/16/18 20:00 23:15 03:15 07:20 Temp 98.3 98.4 97.8 98.3 98.4 97.8 Pulse 80 76 77 Resp 16 20 B/P (MAP) 122/75 (91) 121/85 (97) 138/68 (91) Pulse Ox 92 91 92 O2 Delivery Nasal Cannula Nasal Cannula Nasal Cannula Nasal Cannula O2 Flow Rate 3.0 2.0 2.0 2.0 05/16/18 05/16/18 05/16/18 08:23 11:15 12:24 Temp 97.7 97.7 Pulse 77 Resp 20 B/P (MAP) 143/69 (93) Pulse Ox 92 93 93 O2 Delivery Nasal Cannula Nasal Cannula Nasal Cannula O2 Flow Rate 3.0 2.0 3.0 Intake and Output 05/15/18 05/15/18 05/16/18 14:59 22:59 06:59 Intake Total 320 ml 0 ml 0 ml Balance 320 ml 0 ml 0 ml MARVA JOYA MD May 16, 2018 13:04
[2018-05-16 15:59] VITALS: BP 120/60
--- NOTE | 2018-05-16 17:07 | NUR ---
pt was very agitated this morning, he was having delusions of something or someone being on his bed in which he genuinely looked scared. he would write out SOS on a paper. he is very hard to understand when he speaks. the words are garbeled together. Jake James RN
[2018-05-16 19:59] VITALS: BP 130/56
[2018-05-16] MEDS: ACETAMINOPHEN 650 MG SUPP.RECT. PR PRN (20:21)
[2018-05-16 23:36] VITALS: BP 136/69
[2018-05-17 03:31] VITALS: BP 134/66
[2018-05-17 07:15] VITALS: BP 125/71
[2018-05-17] MEDS: POTASSIUM CHLORIDE 20 MEQ TABLET.ER. PO SCH (08:00)
[2018-05-17] MEDS: IPRATRPIUM/ALBUTEROL 0.5/2.5MG 3 ML NEBU. NEB SCH ×4 (08:01→19:15)
--- NOTE | 2018-05-17 08:59 | PDOC ---
PROGRESS NOTES Assessment Parkinson's, he was on pramipexole and carbidopa/ levodopa, but has been nothing by mouth for the last day and really his Parkinson's symptoms are no worse. This implies that he is at a late stage and medicines are no longer helping Diabetic neuropathy Possible pneumonia. Delirium appears better. Probable underlying Parkinson's dementia Severe dysphagia Plan I discussed with the patient's . He previously expressed his preference that he does not want to live this way. He has already gone through several months of having a PEG tube in. Given the patient's previous wishes, I recommend palliative care and the is in agreement, but wants to think things over for a while Subjective none Objective Vital Signs Date Time Temp Pulse Resp B/P (MAP) Pulse Ox O2 Delivery O2 Flow Rate FiO2 05/17/18 08:01 94 Nasal Cannula 3.0 05/17/18 07:15 98.2 77 18 125/71 (89) 98.2 Intake and Output 05/17/18 07:00 Intake Total 0 ml Balance 0 ml Intake Oral 0 ml # Voids 5 PHYSICAL EXAM Somnolent, opens eyes, does not follow commands, no speech output PERRL. EOMI. CN: no focal findings. Muscle tone: Mild cogwheel rigidity Muscle strength: 4/5 DTR: 0-1+ Plantar reflex: flexor Gait: not examined in bed. Sensory exam: no abnormal findings. No cerebellar signs elicited. Just a brief tremor, does have bradykinesia Review of Relevant I have reviewed the following items brett (where applicable) has been applied. Labs Laboratory Tests Test 05/15/18 11:20 05/15/18 21:03 05/16/18 05:42 05/16/18 11:55 White Blood Count 10.1 x10^3/uL (4.0-11.0) Red Blood Count 5.25 x10^6/uL (4.30-5.70) Hemoglobin 14.9 g/dL (13.0-17.5) Hematocrit 44.6 % (39.0-53.0) Mean Corpuscular Volume 85 fL (79-100) Mean Corpuscular Hemoglobin 28 pg (25-35) Mean Corpuscular Hemoglobin Concent 33 g/dL (31-37) Red Cell Distribution Width 16.6 % (11.5-14.5) Platelet Count 134 x10^3/uL (140-400) Neutrophils (%) (Auto) 82 % (31-73) Lymphocytes (%) (Auto) 7 % (24-48) Monocytes (%) (Auto) 9 % (0-9) Eosinophils (%) (Auto) 2 % (0-3) Basophils (%) (Auto) 1 % (0-3) Neutrophils # (Auto) 8.3 x10^3uL (1.8-7.7) Lymphocytes # (Auto) 0.7 x10^3/uL (1.0-4.8) Monocytes # (Auto) 0.9 x10^3/uL (0.0-1.1) Eosinophils # (Auto) 0.2 x10^3/uL (0.0-0.7) Basophils # (Auto) 0.0 x10^3/uL (0.0-0.2) Glucose (Fingerstick) 91 mg/dL (70-99) 94 mg/dL (70-99) 108 mg/dL (70-99) Test 05/16/18 17:48 05/16/18 20:49 05/17/18 00:23 05/17/18 06:04 Glucose (Fingerstick) 90 mg/dL (70-99) 96 mg/dL (70-99) 84 mg/dL (70-99) 90 mg/dL (70-99) Laboratory Tests Test 05/16/18 11:55 05/16/18 17:48 05/16/18 20:49 05/17/18 00:23 Glucose (Fingerstick) 108 mg/dL (70-99) 90 mg/dL (70-99) 96 mg/dL (70-99) 84 mg/dL (70-99) Test 05/17/18 06:04 Glucose (Fingerstick) 90 mg/dL (70-99) Microbiology 05/12/18 Blood Culture - Preliminary, Resulted NO GROWTH AFTER 4 DAYS Medications Current Medications Sodium Chloride 500 ml @ 500 mls/hr 1X ONCE IV Last administered on at 16:05; Start 05/12/18 at 15:30; Stop 05/12/18 at 16:29; Status DC Vancomycin HCl (Vanco Per Pharmacy) 1 each PRN DAILY PRN MC SEE COMMENTS Last administered on 05/14/18at 07:54; Start 05/12/18 at 17:00; Stop 05/14/18 at 08:57 ; Status DC Levofloxacin/ Dextrose (Levaquin Per Pharmacy) 1 each PRN DAILY PRN MC SEE COMMENTS; Start 05/12/18 at 17:00; Stop 05/14/18 at 09:01; Status DC Levofloxacin/ Dextrose 150 ml @ 100 mls/hr 1X ONCE IV Last administered on at 17:30; Start 05/12/18 at 17:00; Stop 05/12/18 at 18:29; Status DC Vancomycin HCl 2 gm/Sodium Chloride 500 ml @ 250 mls/hr 1X ONCE IV Last administered on 05/12/18at 19:12; Start 05/12/18 at 18:00; Stop 05/12/18 at 19:59 ; Status DC Levofloxacin/ Dextrose 150 ml @ 100 mls/hr Q24H IV Last administered on at 17:20; Start 05/13/18 at 17:00; Stop 05/14/18 at 08:57; Status DC Vancomycin HCl 1.75 gm/Sodium Chloride 500 ml @ 250 mls/hr Q12H IV Last administered on 05/14/18at 07:32; Start 05/13/18 at 07:00; Stop 05/14/18 at 08:57 ; Status DC Vancomycin HCl (Vancomycin Trough Level) 1 each 1X ONCE MC Last administered on 05/14/18at 07:15; Start 05/14/18 at 06:30; Stop 05/14/18 at 06:31; Status DC Lactobacillus Rhamnosus (Culturelle) 1 cap BID PO Last administered on at 08:52; Start 05/12/18 at 21:00; Stop 05/15/18 at 11:10; Status DC Carbidopa/Levodopa (Sinemet 25/100) 1 tab QID PO Last administered on at 08:53; Start 05/12/18 at 22:30 Cetirizine HCl (ZyrTEC) 10 mg DAILY PO Last administered on 05/15/18at 08:53; Start 05/13/18 at 09:00; Stop 05/15/18 at 11:10; Status DC Docusate Sodium (Colace) 100 mg DAILY PO ; Start 05/13/18 at 09:00; Stop at 09:00; Status DC Docusate Sodium (Colace) 100 mg BID PO Last administered on 05/15/18at 08:52; Start 05/13/18 at 09:00 Ipratropium [place] (Atrovent) 0.5 mg RTQID NEB Last administered on 05/13/18at 07:30; Start 05/13/18 at 08:00; Stop 05/13/18 at 12:03; Status DC Miconazole Nitrate (Monistat-Derm) 1 kaylan PRN BID PRN TP RASH; Start 05/12/18 at 22:15 Nystatin (Nystop) 1 kaylan BID TP Last administered on 05/16/18at 20:23; Start at 09:00 Pramipexole Dihydrochloride (miraPEX) 1.5 mg [id number] PO Last administered on at 08:51; Start 05/12/18 at 22:30 Barium Sulfate (Varibar Thin Liquid Apple) 148 gm 1X ONCE PO ; Start 05/13/18 at 11:15; Stop 05/13/18 at 11:16; Status DC Acetaminophen (Tylenol) 500 mg PRN Q6HRS PRN PO MILD PAIN / TEMP; Start at 12:00 Acetaminophen/ Codeine Phosphate (Tylenol #3) 1 tab PRN Q6HRS PRN PO MODERATE PAIN; Start 05/13/18 at 12:00; Stop 05/15/18 at 11:10; Status DC Albuterol/ Ipratropium (Duoneb) 3 ml RTQID NEB Last administered on 05/17/18at 08:01; Start 05/13/18 at 12:00 Temazepam (Restoril) 7.5 mg PRN QHS PRN PO INSOMNIA; Start 05/13/18 at 12:00 Ondansetron HCl (Zofran) 4 mg PRN Q6HRS PRN IV NAUSEA/VOMITING; Start 05/13/18 at 12:00 Ondansetron HCl (Zofran Odt) 4 mg PRN Q6HRS PRN PO NAUSEA/VOMITING; Start 05/13 at 12:00 Furosemide (Lasix) 40 mg DAILY PO Last administered on 05/15/18at 08:52; Start 05/13/18 at 13:00; Stop 05/15/18 at 11:10; Status DC Vitamin D (Vitamin D3) 5,000 unit DAILY PO Last administered on 05/15/18at 08:52 ; Start 05/13/18 at 13:00; Stop 05/15/18 at 11:10; Status DC Multivitamins (Thera M Plus) 1 tab DAILY PO Last administered on 05/15/18at 08: 51; Start 05/13/18 at 13:00; Stop 05/15/18 at 11:10; Status DC Potassium Chloride (Klor-Con) 20 meq DAILYWBKFT PO Last administered on at 08:53; Start 05/13/18 at 13:00; Stop 05/15/18 at 11:10; Status DC Prednisone (Prednisone) 60 mg 1X ONCE PO ; Start 05/13/18 at 12:30; Stop at 12:47; Status DC Prednisone (Prednisone) 40 mg DAILY PO ; Start 05/14/18 at 09:00; Stop 05/14/18 at 09:00; Status DC Levofloxacin (Levaquin) 500 mg DAILY06 PO ; Start 05/15/18 at 13:00; Stop at 13:00; Status DC Levofloxacin/ Dextrose (Levaquin Per Pharmacy) 1 each PRN DAILY PRN MC SEE COMMENTS; Start 05/15/18 at 11:15 Furosemide (Lasix) 40 mg DAILY IVP Last administered on 05/16/18at 12:04; Start 05/16/18 at 09:00 Scopolamine (Transderm-Scop) 1 patch Q3DAYS TD Last administered on 05/15/18at 11:30; Start 05/15/18 at 11:30 Amino Acids/ Glycerin/ Electrolytes 1,000 ml @ 75 mls/hr [id number] IV ; Start at 11:15; Stop 05/15/18 at 11:40; Status DC Furosemide (Lasix) 40 mg 1X ONCE IVP Last administered on 05/15/18at 14:31; Start 05/15/18 at 11:15; Stop 05/15/18 at 11:16; Status DC Levofloxacin (Levaquin) 750 mg DAILY06 PO ; Start 05/15/18 at 12:00 Multivitamins (Thera M Plus) 1 tab DAILY PO ; Start 05/15/18 at 12:30 Potassium Chloride (Klor-Con) 20 meq DAILYWBKFT PO ; Start 05/15/18 at 12:30 Amino Acids/ Glycerin/ Electrolytes 1,000 ml @ 80 mls/hr [id number] IV Last administered on 05/16/18at 20:22; Start 05/15/18 at 18:30 Lorazepam (Ativan) 0.5 mg PRN Q4HRS PRN IV ANXIETY / AGITATION Last administered on 05/17/18at 04:10; Start 05/16/18 at 12:00 Acetaminophen (Tylenol Supp) 650 mg PRN Q6HRS PRN MS MILD PAIN / TEMP Last administered on 05/16/18at 20:21; Start 05/16/18 at 19:45 Levofloxacin/ Dextrose 150 ml @ 100 mls/hr Q24H IV Last administered on at 20:22; Start 05/16/18 at 20:00 Active Scripts Active Colace (Docusate Sodium) 100 Mg Capsule 100 Mg PO BID Reported Elizabeth Antifungal (Miconazole Nitrate) 142 Gm Cream..g. 142 Gm TP BID PRN Nystatin 15 Gm Powder 1 Kaylan TP BID Colace (Docusate Sodium) 100 Mg Capsule 1 Cap PO DAILY Vitamin D (Cholecalciferol (Vitamin D3)) 2,000 Unit Capsule 5,000 Unit PO DAILY Centrum Silver Tablet (Multivits-Min/Fa/Lycopene/Lut) 1 Each Tablet 1 Each PO DAILY Lasix (Furosemide) 40 Mg Tablet 1 Tab PO DAILY Potassium Chloride 20 Meq Tablet.er 20 Meq PO DAILY Ipratropium [place] 0.2 Mg/1 Ml Solution 0.5 Mg NEB QID Vitamin D (Cholecalciferol (Vitamin D3)) 1,000 Unit Capsule 1 Cap PO DAILY Mirapex (Pramipexole Di-Hcl) 0.25 Mg Tablet 1.5 Mg PO TID Sinemet 25-100 Mg Tablet (Carbidopa/Levodopa) 1 Each Tablet 1 Tab PO QID 30 Days take 1 tablet four times a day, add an additional tablet to the afternoon dose Zyrtec (Cetirizine Hcl) 10 Mg Tablet 1 Tab PO DAILY Vitals/I & O Vital Sign - Last 24 Hours 05/16/18 05/16/18 05/16/18 05/16/18 11:15 12:24 15:59 16:07 Temp 97.7 99.2 97.7 99.2 Pulse 77 66 Resp 20 22 B/P (MAP) 143/69 (93) 120/60 (80) Pulse Ox 93 93 92 93 O2 Delivery Nasal Cannula Nasal Cannula Nasal Cannula Nasal Cannula O2 Flow Rate 2.0 3.0 2.0 3.0 05/16/18 05/16/18 05/16/18 05/16/18 19:59 20:15 20:29 23:36 Temp 99.6 99.3 99.6 99.3 Pulse 70 65 Resp 16 20 B/P (MAP) 130/56 (80) 136/69 (91) Pulse Ox 93 89 92 O2 Delivery Nasal Cannula Nasal Cannula Nasal Cannula Nasal Cannula O2 Flow Rate 2.0 3.0 3.0 2.0 05/17/18 05/17/18 05/17/18 03:31 07:15 08:01 Temp 99.1 98.2 99.1 98.2 Pulse 60 77 Resp 16 18 B/P (MAP) 134/66 (88) 125/71 (89) Pulse Ox 93 100 94 O2 Delivery Nasal Cannula Nasal Cannula Nasal Cannula O2 Flow Rate 2.0 2.0 3.0 Intake and Output 05/16/18 05/16/18 05/17/18 15:00 23:00 07:00 Intake Total 0 ml 0 ml 0 ml Balance 0 ml 0 ml 0 ml IGOR GARLAND MD May 17, 2018 08:59
[2018-05-17] MEDS: FUROSEMIDE 40 MG/4 ML VIAL. IVP SCH (09:00)
[2018-05-17] MEDS: MULTIVITAMIN with MINERAL TABLET. PO SCH (09:00)
[2018-05-17] MEDS: CARBIDOPA/LEVODOPA 25/100MG TABLET PO SCH (09:00)
[2018-05-17] MEDS: DOCUSATE SODIUM 100 MG CAPSULE. PO SCH ×2 (09:00→20:40)
[2018-05-17] MEDS: PRAMIPEXOLE 1 MG TABLET. PO SCH (09:00)
[2018-05-17] MEDS: NYSTATIN TOPICAL POWDER 15GM BOTTLE. TP SCH ×2 (09:00→20:40)
--- NOTE | 2018-05-17 09:34 | PDOC ---
PROGRESS NOTES Chief Complaint Chief Complaint Parkinson's, with dementia and delirium fxs - he is on pramipexole and carbidopa / levodopa Diabetic neuropathy Possible dysphagia Possible pneumonia. Dysautonomia, from Parkinsons Urinary incontinence Chronic aspiration - being covered with levaquin Pulmonary congestion on chest x-ray Atelectasis History of Present Illness History of Present Illness 72 yo M with PMHx parkinsons 9 years advanced with multiple medical problems over the past few months admitted for aspiration pneumonia. 05/14-:Video swallow proves overt aspiration and abated upon resumption of honey thickened, Family at bedside, patient lives with the at [place], Patient and family agreeable to SNU asks me about my opinion in increasing his Sinemet which she has been on the dose for many years in the background of recent delirium features, mention of some autonomic involvement now, hypotension at home causing near falls. Would like Dr. Claros contacted about admission 05/16: Very agitated this morning. notes that he never yells at baseline. Son notes this as well and notes that patient apologized to the family for "being a failure". Patient notes 3 additional people in the room and has been writing out S.O.S. He is frustrated no one understands him. His relays that before the hospital stay he was "harmlessly hallucinating" at home, seeing [employer] at the table and additional place settings, but his current mental status frightens the family. I spoke with family in waiting room about code status, they have made it clear he does not wish to be on the ventilator and would like to be DNR, though he did not have advanced directives. Overnight he did hallucinate more, but this morning feeling better. Sitting up to chair, bedside. He is not verbalizing well, but asking for writing materials with hand signals. Plan: Nothing By mouth for now Was previously on dysphagia 3 with honey thickened Social work consulted, family agreeable to SNU CODE - DNR after d/w family Check CBC again, last WBC was 12 with a high sedimentation rate. Lasix 40 IV now then daily ProcalAmine low dose [employer] evaluation again when less confused Changed all by mouth meds to IV Okay to have Parkinson's and Requip meds with sips of meds Dvt ppx Suction when necessary Trial of scopolamine patch-unsure if this will help at all. Ativan for agitation Very high fall risk Discussed with RN I have recommended against PEG tube given his recent signs of autonomic involvement with his parkinsons, though he has previously had a PEG and palliative care has been consulted per family wishes. He only had this for 4-6 weeks. Vitals Vitals Vital Signs Date Time Temp Pulse Resp B/P (MAP) Pulse Ox O2 Delivery O2 Flow Rate FiO2 05/17/18 08:01 94 Nasal Cannula 3.0 05/17/18 07:15 98.2 77 18 125/71 (89) 98.2 Physical Exam General: Alert, Cooperative, mild distress Heart: Regular rate, Normal S1, Normal S2, No murmurs Lungs: Crackles Abdomen: Normal bowel sounds, No tenderness Extremities: No clubbing, No cyanosis, No edema Skin: No rashes, No breakdown, No significant lesion Labs LABS Laboratory Tests Test 05/16/18 11:55 05/16/18 17:48 05/16/18 20:49 05/17/18 00:23 Glucose (Fingerstick) 108 mg/dL (70-99) 90 mg/dL (70-99) 96 mg/dL (70-99) 84 mg/dL (70-99) Test 05/17/18 06:04 Glucose (Fingerstick) 90 mg/dL (70-99) Comment Review of Relevant I have reviewed the following items brett (where applicable) has been applied. Labs Laboratory Tests Test 05/15/18 11:20 05/15/18 21:03 05/16/18 05:42 05/16/18 11:55 White Blood Count 10.1 x10^3/uL (4.0-11.0) Red Blood Count 5.25 x10^6/uL (4.30-5.70) Hemoglobin 14.9 g/dL (13.0-17.5) Hematocrit 44.6 % (39.0-53.0) Mean Corpuscular Volume 85 fL (79-100) Mean Corpuscular Hemoglobin 28 pg (25-35) Mean Corpuscular Hemoglobin Concent 33 g/dL (31-37) Red Cell Distribution Width 16.6 % (11.5-14.5) Platelet Count 134 x10^3/uL (140-400) Neutrophils (%) (Auto) 82 % (31-73) Lymphocytes (%) (Auto) 7 % (24-48) Monocytes (%) (Auto) 9 % (0-9) Eosinophils (%) (Auto) 2 % (0-3) Basophils (%) (Auto) 1 % (0-3) Neutrophils # (Auto) 8.3 x10^3uL (1.8-7.7) Lymphocytes # (Auto) 0.7 x10^3/uL (1.0-4.8) Monocytes # (Auto) 0.9 x10^3/uL (0.0-1.1) Eosinophils # (Auto) 0.2 x10^3/uL (0.0-0.7) Basophils # (Auto) 0.0 x10^3/uL (0.0-0.2) Glucose (Fingerstick) 91 mg/dL (70-99) 94 mg/dL (70-99) 108 mg/dL (70-99) Test 05/16/18 17:48 05/16/18 20:49 05/17/18 00:23 05/17/18 06:04 Glucose (Fingerstick) 90 mg/dL (70-99) 96 mg/dL (70-99) 84 mg/dL (70-99) 90 mg/dL (70-99) Laboratory Tests Test 05/16/18 11:55 05/16/18 17:48 05/16/18 20:49 05/17/18 00:23 Glucose (Fingerstick) 108 mg/dL (70-99) 90 mg/dL (70-99) 96 mg/dL (70-99) 84 mg/dL (70-99) Test 05/17/18 06:04 Glucose (Fingerstick) 90 mg/dL (70-99) Microbiology 05/12/18 Blood Culture - Preliminary, Resulted NO GROWTH AFTER 4 DAYS Medications Current Medications Sodium Chloride 500 ml @ 500 mls/hr 1X ONCE IV Last administered on at 16:05; Start 05/12/18 at 15:30; Stop 05/12/18 at 16:29; Status DC Vancomycin HCl (Vanco Per Pharmacy) 1 each PRN DAILY PRN MC SEE COMMENTS Last administered on 05/14/18at 07:54; Start 05/12/18 at 17:00; Stop 05/14/18 at 08:57 ; Status DC Levofloxacin/ Dextrose (Levaquin Per Pharmacy) 1 each PRN DAILY PRN MC SEE COMMENTS; Start 05/12/18 at 17:00; Stop 05/14/18 at 09:01; Status DC Levofloxacin/ Dextrose 150 ml @ 100 mls/hr 1X ONCE IV Last administered on at 17:30; Start 05/12/18 at 17:00; Stop 05/12/18 at 18:29; Status DC Vancomycin HCl 2 gm/Sodium Chloride 500 ml @ 250 mls/hr 1X ONCE IV Last administered on 05/12/18at 19:12; Start 05/12/18 at 18:00; Stop 05/12/18 at 19:59 ; Status DC Levofloxacin/ Dextrose 150 ml @ 100 mls/hr Q24H IV Last administered on at 17:20; Start 05/13/18 at 17:00; Stop 05/14/18 at 08:57; Status DC Vancomycin HCl 1.75 gm/Sodium Chloride 500 ml @ 250 mls/hr Q12H IV Last administered on 05/14/18at 07:32; Start 05/13/18 at 07:00; Stop 05/14/18 at 08:57 ; Status DC Vancomycin HCl (Vancomycin Trough Level) 1 each 1X ONCE MC Last administered on 05/14/18at 07:15; Start 05/14/18 at 06:30; Stop 05/14/18 at 06:31; Status DC Lactobacillus Rhamnosus (Culturelle) 1 cap BID PO Last administered on at 08:52; Start 05/12/18 at 21:00; Stop 05/15/18 at 11:10; Status DC Carbidopa/Levodopa (Sinemet 25/100) 1 tab QID PO Last administered on at 08:53; Start 05/12/18 at 22:30 Cetirizine HCl (ZyrTEC) 10 mg DAILY PO Last administered on 05/15/18at 08:53; Start 05/13/18 at 09:00; Stop 05/15/18 at 11:10; Status DC Docusate Sodium (Colace) 100 mg DAILY PO ; Start 05/13/18 at 09:00; Stop at 09:00; Status DC Docusate Sodium (Colace) 100 mg BID PO Last administered on 05/15/18at 08:52; Start 05/13/18 at 09:00 Ipratropium [place] (Atrovent) 0.5 mg RTQID NEB Last administered on 05/13/18at 07:30; Start 05/13/18 at 08:00; Stop 05/13/18 at 12:03; Status DC Miconazole Nitrate (Monistat-Derm) 1 kaylan PRN BID PRN TP RASH; Start 05/12/18 at 22:15 Nystatin (Nystop) 1 kaylan BID TP Last administered on 05/16/18at 20:23; Start at 09:00 Pramipexole Dihydrochloride (miraPEX) 1.5 mg [id number] PO Last administered on at 08:51; Start 05/12/18 at 22:30 Barium Sulfate (Varibar Thin Liquid Apple) 148 gm 1X ONCE PO ; Start 05/13/18 at 11:15; Stop 05/13/18 at 11:16; Status DC Acetaminophen (Tylenol) 500 mg PRN Q6HRS PRN PO MILD PAIN / TEMP; Start at 12:00 Acetaminophen/ Codeine Phosphate (Tylenol #3) 1 tab PRN Q6HRS PRN PO MODERATE PAIN; Start 05/13/18 at 12:00; Stop 05/15/18 at 11:10; Status DC Albuterol/ Ipratropium (Duoneb) 3 ml RTQID NEB Last administered on 05/17/18at 08:01; Start 05/13/18 at 12:00 Temazepam (Restoril) 7.5 mg PRN QHS PRN PO INSOMNIA; Start 05/13/18 at 12:00 Ondansetron HCl (Zofran) 4 mg PRN Q6HRS PRN IV NAUSEA/VOMITING; Start 05/13/18 at 12:00 Ondansetron HCl (Zofran Odt) 4 mg PRN Q6HRS PRN PO NAUSEA/VOMITING; Start 05/13 at 12:00 Furosemide (Lasix) 40 mg DAILY PO Last administered on 05/15/18at 08:52; Start 05/13/18 at 13:00; Stop 05/15/18 at 11:10; Status DC Vitamin D (Vitamin D3) 5,000 unit DAILY PO Last administered on 05/15/18at 08:52 ; Start 05/13/18 at 13:00; Stop 05/15/18 at 11:10; Status DC Multivitamins (Thera M Plus) 1 tab DAILY PO Last administered on 05/15/18at 08: 51; Start 05/13/18 at 13:00; Stop 05/15/18 at 11:10; Status DC Potassium Chloride (Klor-Con) 20 meq DAILYWBKFT PO Last administered on at 08:53; Start 05/13/18 at 13:00; Stop 05/15/18 at 11:10; Status DC Prednisone (Prednisone) 60 mg 1X ONCE PO ; Start 05/13/18 at 12:30; Stop at 12:47; Status DC Prednisone (Prednisone) 40 mg DAILY PO ; Start 05/14/18 at 09:00; Stop 05/14/18 at 09:00; Status DC Levofloxacin (Levaquin) 500 mg DAILY06 PO ; Start 05/15/18 at 13:00; Stop at 13:00; Status DC Levofloxacin/ Dextrose (Levaquin Per Pharmacy) 1 each PRN DAILY PRN MC SEE COMMENTS; Start 05/15/18 at 11:15 Furosemide (Lasix) 40 mg DAILY IVP Last administered on 05/16/18at 12:04; Start 05/16/18 at 09:00 Scopolamine (Transderm-Scop) 1 patch Q3DAYS TD Last administered on 05/15/18at 11:30; Start 05/15/18 at 11:30 Amino Acids/ Glycerin/ Electrolytes 1,000 ml @ 75 mls/hr [id number] IV ; Start at 11:15; Stop 05/15/18 at 11:40; Status DC Furosemide (Lasix) 40 mg 1X ONCE IVP Last administered on 05/15/18at 14:31; Start 05/15/18 at 11:15; Stop 05/15/18 at 11:16; Status DC Levofloxacin (Levaquin) 750 mg DAILY06 PO ; Start 05/15/18 at 12:00 Multivitamins (Thera M Plus) 1 tab DAILY PO ; Start 05/15/18 at 12:30 Potassium Chloride (Klor-Con) 20 meq DAILYWBKFT PO ; Start 05/15/18 at 12:30 Amino Acids/ Glycerin/ Electrolytes 1,000 ml @ 80 mls/hr [id number] IV Last administered on 05/16/18at 20:22; Start 05/15/18 at 18:30 Lorazepam (Ativan) 0.5 mg PRN Q4HRS PRN IV ANXIETY / AGITATION Last administered on 05/17/18at 04:10; Start 05/16/18 at 12:00 Acetaminophen (Tylenol Supp) 650 mg PRN Q6HRS PRN [place] MILD PAIN / TEMP Last administered on 05/16/18at 20:21; Start 05/16/18 at 19:45 Levofloxacin/ Dextrose 150 ml @ 100 mls/hr Q24H IV Last administered on at 20:22; Start 05/16/18 at 20:00 Active Scripts Active Colace (Docusate Sodium) 100 Mg Capsule 100 Mg PO BID Reported Elizabeth Antifungal (Miconazole Nitrate) 142 Gm Cream..g. 142 Gm TP BID PRN Nystatin 15 Gm Powder 1 Kaylan TP BID Colace (Docusate Sodium) 100 Mg Capsule 1 Cap PO DAILY Vitamin D (Cholecalciferol (Vitamin D3)) 2,000 Unit Capsule 5,000 Unit PO DAILY Centrum Silver Tablet (Multivits-Min/Fa/Lycopene/Lut) 1 Each Tablet 1 Each PO DAILY Lasix (Furosemide) 40 Mg Tablet 1 Tab PO DAILY Potassium Chloride 20 Meq Tablet.er 20 Meq PO DAILY Ipratropium [place] 0.2 Mg/1 Ml Solution 0.5 Mg NEB QID Vitamin D (Cholecalciferol (Vitamin D3)) 1,000 Unit Capsule 1 Cap PO DAILY Mirapex (Pramipexole Di-Hcl) 0.25 Mg Tablet 1.5 Mg PO TID Sinemet 25-100 Mg Tablet (Carbidopa/Levodopa) 1 Each Tablet 1 Tab PO QID 30 Days take 1 tablet four times a day, add an additional tablet to the afternoon dose Zyrtec (Cetirizine Hcl) 10 Mg Tablet 1 Tab PO DAILY Vitals/I & O Vital Sign - Last 24 Hours 05/16/18 05/16/18 05/16/18 05/16/18 11:15 12:24 15:59 16:07 Temp 97.7 99.2 97.7 99.2 Pulse 77 66 Resp 20 22 B/P (MAP) 143/69 (93) 120/60 (80) Pulse Ox 93 93 92 93 O2 Delivery Nasal Cannula Nasal Cannula Nasal Cannula Nasal Cannula O2 Flow Rate 2.0 3.0 2.0 3.0 05/16/18 05/16/18 05/16/18 05/16/18 19:59 20:15 20:29 23:36 Temp 99.6 99.3 99.6 99.3 Pulse 70 65 Resp 16 20 B/P (MAP) 130/56 (80) 136/69 (91) Pulse Ox 93 89 92 O2 Delivery Nasal Cannula Nasal Cannula Nasal Cannula Nasal Cannula O2 Flow Rate 2.0 3.0 3.0 2.0 05/17/18 05/17/18 05/17/18 03:31 07:15 08:01 Temp 99.1 98.2 99.1 98.2 Pulse 60 77 Resp 16 18 B/P (MAP) 134/66 (88) 125/71 (89) Pulse Ox 93 100 94 O2 Delivery Nasal Cannula Nasal Cannula Nasal Cannula O2 Flow Rate 2.0 2.0 3.0 Intake and Output 05/16/18 05/16/18 05/17/18 15:00 23:00 07:00 Intake Total 0 ml 0 ml 0 ml Balance 0 ml 0 ml 0 ml Nutrition Consultation Dietary Evaluation: Recommendations by RD: PPN/TPN Comments: continue PPN at this time monitor plan of care Expected Outcomes/Goals: to be determined Malnutrition Findings: Food and Nutrition Intake (Mod: <75% est energy req 7days Weight Status: Obese MARVA JOYA MD May 17, 2018 09:34
[2018-05-17 10:33] LABS: ANION GAP 11 (6-14); BLOOD UREA NITROGEN 24 mg/dL (8-26); CALCIUM 8.9 mg/dL (8.5-10.1); CARBON DIOXIDE 26 mmol/L (21-32); CHLORIDE 102 mmol/L (98-107); CREATININE 0.8 mg/dL (0.7-1.3); GFR 95.6; GLUCOSE 98 mg/dL (70-99); POTASSIUM 4.3 mmol/L (3.5-5.1); SODIUM 139 mmol/L (136-145)
[2018-05-17 10:57] VITALS: BP 134/63
--- NOTE | 2018-05-17 11:12 | PDOC ---
PULMONARY PROGRESS NOTES Subjective SPEECH BETTER NO SOA Vitals Vital Signs Date Time Temp Pulse Resp B/P (MAP) Pulse Ox O2 Delivery O2 Flow Rate FiO2 05/17/18 10:57 98.0 70 20 134/63 (86) 93 Room Air 98.0 05/17/18 08:01 3.0 General: Alert, No acute distress HEENT: Other (nc at perrl) Lungs: Clear Cardiovascular: S1, S2 Abdomen: Soft, Non-tender Neuro Exam: Alert Extremities: Other Skin: Warm Labs Laboratory Tests Test 05/15/18 11:20 05/15/18 21:03 05/16/18 05:42 05/16/18 11:55 White Blood Count 10.1 x10^3/uL (4.0-11.0) Red Blood Count 5.25 x10^6/uL (4.30-5.70) Hemoglobin 14.9 g/dL (13.0-17.5) Hematocrit 44.6 % (39.0-53.0) Mean Corpuscular Volume 85 fL (79-100) Mean Corpuscular Hemoglobin 28 pg (25-35) Mean Corpuscular Hemoglobin Concent 33 g/dL (31-37) Red Cell Distribution Width 16.6 % (11.5-14.5) Platelet Count 134 x10^3/uL (140-400) Neutrophils (%) (Auto) 82 % (31-73) Lymphocytes (%) (Auto) 7 % (24-48) Monocytes (%) (Auto) 9 % (0-9) Eosinophils (%) (Auto) 2 % (0-3) Basophils (%) (Auto) 1 % (0-3) Neutrophils # (Auto) 8.3 x10^3uL (1.8-7.7) Lymphocytes # (Auto) 0.7 x10^3/uL (1.0-4.8) Monocytes # (Auto) 0.9 x10^3/uL (0.0-1.1) Eosinophils # (Auto) 0.2 x10^3/uL (0.0-0.7) Basophils # (Auto) 0.0 x10^3/uL (0.0-0.2) Glucose (Fingerstick) 91 mg/dL (70-99) 94 mg/dL (70-99) 108 mg/dL (70-99) Test 05/16/18 17:48 05/16/18 20:49 05/17/18 00:23 05/17/18 06:04 Glucose (Fingerstick) 90 mg/dL (70-99) 96 mg/dL (70-99) 84 mg/dL (70-99) 90 mg/dL (70-99) Test 05/17/18 10:05 Sodium Level 139 mmol/L (136-145) Potassium Level 4.3 mmol/L (3.5-5.1) Chloride Level 102 mmol/L (98-107) Carbon Dioxide Level 26 mmol/L (21-32) Anion Gap 11 (6-14) Blood Urea Nitrogen 24 mg/dL (8-26) Creatinine 0.8 mg/dL (0.7-1.3) Estimated GFR (Cockcroft-Gault) 95.6 Glucose Level 98 mg/dL (70-99) Calcium Level 8.9 mg/dL (8.5-10.1) Vancomycin Level Trough 2.0 mcg/mL (10.0-20.0) Vancomycin Last Dose Date 05/16/18 Vancomycin Last Dose Time 1000 Laboratory Tests Test 05/16/18 11:55 05/16/18 17:48 05/16/18 20:49 05/17/18 00:23 Glucose (Fingerstick) 108 mg/dL (70-99) 90 mg/dL (70-99) 96 mg/dL (70-99) 84 mg/dL (70-99) Test 05/17/18 06:04 05/17/18 10:05 Glucose (Fingerstick) 90 mg/dL (70-99) Sodium Level 139 mmol/L (136-145) Potassium Level 4.3 mmol/L (3.5-5.1) Chloride Level 102 mmol/L (98-107) Carbon Dioxide Level 26 mmol/L (21-32) Anion Gap 11 (6-14) Blood Urea Nitrogen 24 mg/dL (8-26) Creatinine 0.8 mg/dL (0.7-1.3) Estimated GFR (Cockcroft-Gault) 95.6 Glucose Level 98 mg/dL (70-99) Calcium Level 8.9 mg/dL (8.5-10.1) Vancomycin Level Trough 2.0 mcg/mL (10.0-20.0) Vancomycin Last Dose Date 05/16/18 Vancomycin Last Dose Time 1000 Medications Active Scripts Medications Dose Route/Sig Max Daily Dose Days Date Category Dose Instructions Elizabeth Antifungal (Miconazole Nitrate) 142 Gm Cream..g. 142 Gm TP BID PRN 05/12/18 Reported Nystatin 15 Gm Powder 1 Kaylan TP BID 05/12/18 Reported Colace (Docusate Sodium) 100 Mg Capsule 1 Cap PO DAILY 04/13/18 Reported Vitamin D (Cholecalciferol (Vitamin D3)) 2,000 Unit Capsule 5,000 Unit PO DAILY 04/13/18 Reported Centrum Silver Tablet (Multivits-Min/Fa/Lycopene/Lut) 1 Each Tablet 1 Each PO DAILY 04/13/18 Reported Lasix (Furosemide) 40 Mg Tablet 1 Tab PO DAILY 04/13/18 Reported Potassium Chloride 20 Meq Tablet.er 20 Meq PO DAILY 04/13/18 Reported Ipratropium Aldie 0.2 Mg/1 Ml Solution 0.5 Mg NEB QID 04/13/18 Reported Vitamin D (Cholecalciferol (Vitamin D3)) 1,000 Unit Capsule 1 Cap PO DAILY 04/13/18 Reported Mirapex (Pramipexole Di-Hcl) 0.25 Mg Tablet 1.5 Mg PO TID 04/13/18 Reported Sinemet 25-100 Mg Tablet (Carbidopa/Levodopa) 1 Each Tablet 1 Tab PO QID 30 07/17/15 Reported take 1 tablet four times a day, add an additional tablet to the afternoon dose Zyrtec (Cetirizine Hcl) 10 Mg Tablet 1 Tab PO DAILY 03/20/15 Reported Colace (Docusate Sodium) 100 Mg Capsule 100 Mg PO BID 04/06/14 Rx Impression . IMPRESSION: 1. Aspiration pneumonia. 2. dysphagia 3. Persistent bilateral pulmonary infiltrates related to chronic aspiration. 4. History of chronic respiratory failure. As indicated above, the patient was hospitalized here, treated for acute respiratory distress syndrome, underwent tracheotomy and eventually was decannulated. 5. Parkinsonism. 6. Diabetic neuropathy. 7. Generalized weakness. 8. Toxic metabolic encephalopathy present upon admission, improved. Plan . PLAN: 1. cont abx 2. The patient is status post bronchoscopy. Cultures at that time were negative. 2. Follow speech therapist's recommendation for diet./ On PPN./ palliative meeting yesterday to discuss goal of care and intermediate frame tender nutrition option/ hospice option discussed as well 3. Continue other medication. 4. Continue oxygen supplementation. 02 titration. 5. BD 6. elevate HOB/ PPN for now discussed w pts PATITO ANTONIO MD May 17, 2018 11:12
--- NOTE | 2018-05-17 13:06 | PDOC2 ---
PALLIATIVE CARE Palliative Care Note Palliative Care Dr. Vasquez very familiar with patient and family. Dr. Vasquez with discuss goals with family. PC consult discontinued. NEFTALI PERDOMO May 17, 2018 13:06
[2018-05-17] MEDS: AMINO AC 3%/ELECTROLYTE/GLYCER 1,000 ML IV SCH ×2 (13:23→20:30)
[2018-05-17 15:10] VITALS: BP 144/80
--- NOTE | 2018-05-17 15:15 | NUR ---
Wound care: Patient seen per wound care consult regarding Bilateral heels and coccyx. Bilateral heels are reddened but remain closed at this time. Foams placed for protection and bilateral heel medix boots ordered. To the coccyx recommendation for calazime cream. Calazime applied and patient tolerated well. No other wounds noted at this time. Dressing change instructions left in room. Patient is on a P-500 bed at this time. Wheelchair cushion ordered. at bedside. Call light in reach, patient in chair and alarm set at this time. Patient assisted with urinal. Dressing change instructions left in room. Will follow regarding wound care.
--- NOTE | 2018-05-17 16:00 | NUR ---
SW following pt. ALBERT provided pt's contact info for physician to address home with hospice or feeding options. Will continue to follow.
[2018-05-17 17:36] LABS: BILIRUBIN,URINE NEGATIVE (NEG); CLARITY,URINE CLEAR; COLOR,URINE AMBER; NITRITE,URINE NEGATIVE (NEG); PROTEIN,URINE NEGATIVE (NEG-TRACE)
[2018-05-17 17:49] LABS: BACTERIA,URINE 0 /HPF (0-FEW); HYALINE CASTS, URINE OCCASIONAL /HPF; RBC,URINE 0 /HPF (0-2); SQUAMOUS EPITHELIAL CELL,UR OCC /LPF
[2018-05-17 19:40] VITALS: BP 144/78
[2018-05-17 23:56] VITALS: BP 140/93
[2018-05-18 03:49] VITALS: BP 136/77
[2018-05-18] MEDS: AMINO AC 3%/ELECTROLYTE/GLYCER 1,000 ML IV SCH ×2 (05:20→17:41)
[2018-05-18 07:05] VITALS: BP 137/75
[2018-05-18] MEDS: IPRATRPIUM/ALBUTEROL 0.5/2.5MG 3 ML NEBU. NEB SCH ×4 (08:00→20:03)
[2018-05-18] MEDS: POTASSIUM CHLORIDE 20 MEQ TABLET.ER. PO SCH (08:00)
[2018-05-18] MEDS: MULTIVITAMIN with MINERAL TABLET. PO SCH (09:00)
[2018-05-18] MEDS: DOCUSATE SODIUM 100 MG CAPSULE. PO SCH ×2 (09:00→19:58)
[2018-05-18] MEDS: NYSTATIN TOPICAL POWDER 15GM BOTTLE. TP SCH ×2 (09:00→21:00)
[2018-05-18] MEDS: FUROSEMIDE 40 MG/4 ML VIAL. IVP SCH (09:00)
[2018-05-18 10:30] VITALS: BP 113/59
[2018-05-18] MEDS: SCOPOLAMINE 1.5MG PATCH. TD SCH (10:43)
--- NOTE | 2018-05-18 10:57 | PDOC ---
PROGRESS NOTES Assessment Parkinson's, he was on pramipexole and carbidopa/ levodopa, but has been nothing by mouth for the last day and really his Parkinson's symptoms are no worse. This implies that he is at a late stage and medicines are no longer helping Diabetic neuropathy Possible pneumonia. Delirium appears better. 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 He previously expressed his preference that he does not want to live this way. He has already gone through several months of having a PEG tube in. She misunderstood me yesterday thinking that the patient could participate in making the decision about the PEG, but I clarified that I was referring to the fact that in the past he had expressed his preference against a PEG. His Parkinson's is only a little worse off of the medications. She will discuss with Jeffrey this afternoon. Subjective None Objective Vital Signs Date Time Temp Pulse Resp B/P (MAP) Pulse Ox O2 Delivery O2 Flow Rate FiO2 05/18/18 10:30 99.4 82 20 113/59 (77) 92 Nasal Cannula 2.0 99.4 Intake and Output 05/18/18 07:00 Intake Total 0 ml Output Total 500 ml Balance -500 ml Intake Oral 0 ml Output Urine Total 500 ml # Voids 2 PHYSICAL EXAM Somnolent, opens eyes, does not follow commands, no speech output PERRL. EOMI. CN: no focal findings. Muscle tone: Mild cogwheel rigidity, more dystonic posturing of hands Muscle strength: 4/5 DTR: 0-1+ Plantar reflex: flexor Gait: not examined in bed. Sensory exam: no abnormal findings. No cerebellar signs elicited. Just a brief resting tremor, does have bradykinesia Review of Relevant I have reviewed the following items brett (where applicable) has been applied. Labs Laboratory Tests Test 05/16/18 11:55 05/16/18 17:48 05/16/18 20:49 05/17/18 00:23 Glucose (Fingerstick) 108 mg/dL (70-99) 90 mg/dL (70-99) 96 mg/dL (70-99) 84 mg/dL (70-99) Test 05/17/18 06:04 05/17/18 10:05 05/17/18 17:15 Glucose (Fingerstick) 90 mg/dL (70-99) Sodium Level 139 mmol/L (136-145) Potassium Level 4.3 mmol/L (3.5-5.1) Chloride Level 102 mmol/L (98-107) Carbon Dioxide Level 26 mmol/L (21-32) Anion Gap 11 (6-14) Blood Urea Nitrogen 24 mg/dL (8-26) Creatinine 0.8 mg/dL (0.7-1.3) Estimated GFR (Cockcroft-Gault) 95.6 Glucose Level 98 mg/dL (70-99) Calcium Level 8.9 mg/dL (8.5-10.1) Vancomycin Level Trough 2.0 mcg/mL (10.0-20.0) Vancomycin Last Dose Date 05/16/18 Vancomycin Last Dose Time 1000 Urine Color Verena Urine Clarity Clear Urine pH 6.0 Urine Specific Chandler 1.025 Urine Protein Negative mg/dL (NEG-TRACE) Urine Glucose (UA) Negative mg/dL (NEG) Urine Ketones (Stick) Trace mg/dL (NEG) Urine Blood Negative (NEG) Urine Nitrite Negative (NEG) Urine Bilirubin Negative (NEG) Urine Urobilinogen Dipstick 1.0 mg/dL (0.2 mg/dL) Urine Leukocyte Esterase Negative (NEG) Urine RBC 0 /HPF (0-2) Urine WBC 1-4 /HPF (0-4) Urine Squamous Epithelial Cells Occ /LPF Urine Bacteria 0 /HPF (0-FEW) Urine Hyaline Casts Occasional /HPF Urine Mucus Mod /LPF Laboratory Tests Test 05/17/18 17:15 Urine Color Verena Urine Clarity Clear Urine pH 6.0 Urine Specific Chandler 1.025 Urine Protein Negative mg/dL (NEG-TRACE) Urine Glucose (UA) Negative mg/dL (NEG) Urine Ketones (Stick) Trace mg/dL (NEG) Urine Blood Negative (NEG) Urine Nitrite Negative (NEG) Urine Bilirubin Negative (NEG) Urine Urobilinogen Dipstick 1.0 mg/dL (0.2 mg/dL) Urine Leukocyte Esterase Negative (NEG) Urine RBC 0 /HPF (0-2) Urine WBC 1-4 /HPF (0-4) Urine Squamous Epithelial Cells Occ /LPF Urine Bacteria 0 /HPF (0-FEW) Urine Hyaline Casts Occasional /HPF Urine Mucus Mod /LPF Microbiology 05/12/18 Blood Culture - Final, Complete NO GROWTH AFTER 5 DAYS Medications Current Medications Sodium Chloride 500 ml @ 500 mls/hr 1X ONCE IV Last administered on at 16:05; Start 05/12/18 at 15:30; Stop 05/12/18 at 16:29; Status DC Vancomycin HCl (Vanco Per Pharmacy) 1 each PRN DAILY PRN MC SEE COMMENTS Last administered on 05/14/18at 07:54; Start 05/12/18 at 17:00; Stop 05/14/18 at 08:57 ; Status DC Levofloxacin/ Dextrose (Levaquin Per Pharmacy) 1 each PRN DAILY PRN MC SEE COMMENTS; Start 05/12/18 at 17:00; Stop 05/14/18 at 09:01; Status DC Levofloxacin/ Dextrose 150 ml @ 100 mls/hr 1X ONCE IV Last administered on at 17:30; Start 05/12/18 at 17:00; Stop 05/12/18 at 18:29; Status DC Vancomycin HCl 2 gm/Sodium Chloride 500 ml @ 250 mls/hr 1X ONCE IV Last administered on 05/12/18at 19:12; Start 05/12/18 at 18:00; Stop 05/12/18 at 19:59 ; Status DC Levofloxacin/ Dextrose 150 ml @ 100 mls/hr Q24H IV Last administered on at 17:20; Start 05/13/18 at 17:00; Stop 05/14/18 at 08:57; Status DC Vancomycin HCl 1.75 gm/Sodium Chloride 500 ml @ 250 mls/hr Q12H IV Last administered on 05/14/18at 07:32; Start 05/13/18 at 07:00; Stop 05/14/18 at 08:57 ; Status DC Vancomycin HCl (Vancomycin Trough Level) 1 each 1X ONCE MC Last administered on 05/14/18at 07:15; Start 05/14/18 at 06:30; Stop 05/14/18 at 06:31; Status DC Lactobacillus Rhamnosus (Culturelle) 1 cap BID PO Last administered on at 08:52; Start 05/12/18 at 21:00; Stop 05/15/18 at 11:10; Status DC Carbidopa/Levodopa (Sinemet 25/100) 1 tab QID PO Last administered on at 08:53; Start 05/12/18 at 22:30; Stop 05/17/18 at 09:33; Status DC Cetirizine HCl (ZyrTEC) 10 mg DAILY PO Last administered on 05/15/18at 08:53; Start 05/13/18 at 09:00; Stop 05/15/18 at 11:10; Status DC Docusate Sodium (Colace) 100 mg DAILY PO ; Start 05/13/18 at 09:00; Stop at 09:00; Status DC Docusate Sodium (Colace) 100 mg BID PO Last administered on 05/15/18at 08:52; Start 05/13/18 at 09:00 Ipratropium Matheny (Atrovent) 0.5 mg RTQID NEB Last administered on 05/13/18at 07:30; Start 05/13/18 at 08:00; Stop 05/13/18 at 12:03; Status DC Miconazole Nitrate (Monistat-Derm) 1 kaylan PRN BID PRN TP RASH; Start 05/12/18 at 22:15 Nystatin (Nystop) 1 kaylan BID TP Last administered on 05/18/18at 09:00; Start at 09:00 Pramipexole Dihydrochloride (miraPEX) 1.5 mg [id number] PO Last administered on at 08:51; Start 05/12/18 at 22:30; Stop 05/17/18 at 09:33; Status DC Barium Sulfate (Varibar Thin Liquid Apple) 148 gm 1X ONCE PO ; Start 05/13/18 at 11:15; Stop 05/13/18 at 11:16; Status DC Acetaminophen (Tylenol) 500 mg PRN Q6HRS PRN PO MILD PAIN / TEMP; Start at 12:00 Acetaminophen/ Codeine Phosphate (Tylenol #3) 1 tab PRN Q6HRS PRN PO MODERATE PAIN; Start 05/13/18 at 12:00; Stop 05/15/18 at 11:10; Status DC Albuterol/ Ipratropium (Duoneb) 3 ml RTQID NEB Last administered on 05/18/18at 08:00; Start 05/13/18 at 12:00 Temazepam (Restoril) 7.5 mg PRN QHS PRN PO INSOMNIA; Start 05/13/18 at 12:00 Ondansetron HCl (Zofran) 4 mg PRN Q6HRS PRN IV NAUSEA/VOMITING; Start 05/13/18 at 12:00 Ondansetron HCl (Zofran Odt) 4 mg PRN Q6HRS PRN PO NAUSEA/VOMITING; Start 05/13 at 12:00 Furosemide (Lasix) 40 mg DAILY PO Last administered on 05/15/18at 08:52; Start 05/13/18 at 13:00; Stop 05/15/18 at 11:10; Status DC Vitamin D (Vitamin D3) 5,000 unit DAILY PO Last administered on 05/15/18at 08:52 ; Start 05/13/18 at 13:00; Stop 05/15/18 at 11:10; Status DC Multivitamins (Thera M Plus) 1 tab DAILY PO Last administered on 05/15/18at 08: 51; Start 05/13/18 at 13:00; Stop 05/15/18 at 11:10; Status DC Potassium Chloride (Klor-Con) 20 meq DAILYWBKFT PO Last administered on at 08:53; Start 05/13/18 at 13:00; Stop 05/15/18 at 11:10; Status DC Prednisone (Prednisone) 60 mg 1X ONCE PO ; Start 05/13/18 at 12:30; Stop at 12:47; Status DC Prednisone (Prednisone) 40 mg DAILY PO ; Start 05/14/18 at 09:00; Stop 05/14/18 at 09:00; Status DC Levofloxacin (Levaquin) 500 mg DAILY06 PO ; Start 05/15/18 at 13:00; Stop at 13:00; Status DC Levofloxacin/ Dextrose (Levaquin Per Pharmacy) 1 each PRN DAILY PRN MC SEE COMMENTS; Start 05/15/18 at 11:15 Furosemide (Lasix) 40 mg DAILY IVP Last administered on 05/16/18at 12:04; Start 05/16/18 at 09:00 Scopolamine (Transderm-Scop) 1 patch Q3DAYS TD Last administered on 05/18/18at 10:43; Start 05/15/18 at 11:30 Amino Acids/ Glycerin/ Electrolytes 1,000 ml @ 75 mls/hr [id number] IV ; Start at 11:15; Stop 05/15/18 at 11:40; Status DC Furosemide (Lasix) 40 mg 1X ONCE IVP Last administered on 05/15/18at 14:31; Start 05/15/18 at 11:15; Stop 05/15/18 at 11:16; Status DC Levofloxacin (Levaquin) 750 mg DAILY06 PO ; Start 05/15/18 at 12:00; Stop at 12:37; Status DC Multivitamins (Thera M Plus) 1 tab DAILY PO ; Start 05/15/18 at 12:30 Potassium Chloride (Klor-Con) 20 meq DAILYWBKFT PO ; Start 05/15/18 at 12:30 Amino Acids/ Glycerin/ Electrolytes 1,000 ml @ 80 mls/hr [id number] IV Last administered on 05/18/18at 05:20; Start 05/15/18 at 18:30 Lorazepam (Ativan) 0.5 mg PRN Q4HRS PRN IV ANXIETY / AGITATION Last administered on 05/17/18at 04:10; Start 05/16/18 at 12:00 Acetaminophen (Tylenol Supp) 650 mg PRN Q6HRS PRN [place] MILD PAIN / TEMP Last administered on 05/16/18at 20:21; Start 05/16/18 at 19:45 Levofloxacin/ Dextrose 150 ml @ 100 mls/hr Q24H IV Last administered on at 20:39; Start 05/16/18 at 20:00 Active Scripts Active Colace (Docusate Sodium) 100 Mg Capsule 100 Mg PO BID Reported Elizabeth Antifungal (Miconazole Nitrate) 142 Gm Cream..g. 142 Gm TP BID PRN Nystatin 15 Gm Powder 1 Kaylan TP BID Colace (Docusate Sodium) 100 Mg Capsule 1 Cap PO DAILY Vitamin D (Cholecalciferol (Vitamin D3)) 2,000 Unit Capsule 5,000 Unit PO DAILY Centrum Silver Tablet (Multivits-Min/Fa/Lycopene/Lut) 1 Each Tablet 1 Each PO DAILY Lasix (Furosemide) 40 Mg Tablet 1 Tab PO DAILY Potassium Chloride 20 Meq Tablet.er 20 Meq PO DAILY Ipratropium Matheny 0.2 Mg/1 Ml Solution 0.5 Mg NEB QID Vitamin D (Cholecalciferol (Vitamin D3)) 1,000 Unit Capsule 1 Cap PO DAILY Mirapex (Pramipexole Di-Hcl) 0.25 Mg Tablet 1.5 Mg PO TID Sinemet 25-100 Mg Tablet (Carbidopa/Levodopa) 1 Each Tablet 1 Tab PO QID 30 Days take 1 tablet four times a day, add an additional tablet to the afternoon dose Zyrtec (Cetirizine Hcl) 10 Mg Tablet 1 Tab PO DAILY Vitals/I & O Vital Sign - Last 24 Hours 05/17/18 05/17/18 05/17/18 05/17/18 10:57 12:08 15:10 15:55 Temp 98.0 98.1 98.0 98.1 Pulse 70 71 Resp 20 19 B/P (MAP) 134/63 (86) 144/80 (101) Pulse Ox 93 99 93 95 O2 Delivery Nasal Cannula Nasal Cannula Nasal Cannula Nasal Cannula O2 Flow Rate 2.0 3.0 2.0 3.0 05/17/18 05/17/18 05/17/18 05/17/18 19:15 19:40 20:10 23:56 Temp 98.7 98.2 98.7 98.2 Pulse 78 90 Resp 20 B/P (MAP) 144/78 (100) 140/93 (109) Pulse Ox 83 93 95 O2 Delivery Room Air Nasal Cannula Nasal Cannula Nasal Cannula O2 Flow Rate 2.0 3.0 2.0 05/18/18 05/18/18 05/18/18 05/18/18 03:49 07:05 08:00 08:00 Temp 98.1 98.1 98.1 98.1 Pulse 77 81 Resp 18 18 B/P (MAP) 136/77 (96) 137/75 (95) Pulse Ox 93 93 93 O2 Delivery Nasal Cannula Nasal Cannula Nasal Cannula Nasal Cannula O2 Flow Rate 2.0 2.0 3.0 3.0 05/18/18 10:30 Temp 99.4 99.4 Pulse 82 Resp 20 B/P (MAP) 113/59 (77) Pulse Ox 92 O2 Delivery Nasal Cannula O2 Flow Rate 2.0 Intake and Output 05/17/18 05/17/18 05/18/18 15:00 23:00 07:00 Intake Total 0 ml 0 ml 0 ml Output Total 500 ml Balance 0 ml -500 ml 0 ml IGOR GARLAND MD May 18, 2018 10:57
--- NOTE | 2018-05-18 11:43 | EKG ---
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
--- NOTE | 2018-05-18 14:08 | NUR ---
SW following. Spoke with RN who reported ' wants pt make decision'. Pt's is notified pt is not able to make decision by neurologist. ALBERT discussed with Dr. Albarran who will be speaking with pt's today as well regarding goals of care. Discussed with Palliative care. Will continue to follow.
[2018-05-18 15:05] VITALS: BP 139/76
[2018-05-18] MEDS: ACETAMINOPHEN 650 MG SUPP.RECT. PR PRN (15:30)
--- NOTE | 2018-05-18 15:39 | PDOC2 ---
PALLIATIVE CARE Palliative Care Note Palliative Care Dr. Albarran and I spoke with regarding plan of care. Nelli would like to follow her husbands wishes about going home. Reviewed benefits and risks of feeding tube. No feeding tube at this time per patient wishes. Discussed Hospice Support. Nelli requests Hospice. DME Hospital Bed with rails, oxygen, Bedside table given list of hired givers. She will need to get them in place. prior to going home. Steven pitts. NEFTALI PERDOMO May 18, 2018 15:39
--- NOTE | 2018-05-18 15:54 | NUR ---
SW following pt. SW spoke with and confirmed plan home with hospice on Wednesday. Pt's is working on getting her house ready and looking for knitter helper in the mean time. SW phoned and faxed referral to Hospice house. Spoke with admission and notified them regarding DME equipment. They reported they will reach out to to set up a time tomorrow to deliver equipment. agreeable for admission paper to be done at home on Wednesday as she might not be present at [facility] tomorrow. Will continue to follow. ISAIAH MON.
[2018-05-18 19:53] VITALS: BP 144/70
[2018-05-18 23:30] VITALS: BP 131/63
--- NOTE | 2018-05-19 02:39 | PDOC ---
PROGRESS NOTES Chief Complaint Chief Complaint Parkinson's, with dementia and delirium fxs - he is on pramipexole and carbidopa / levodopa Diabetic neuropathy Possible dysphagia Possible pneumonia. Dysautonomia, from Parkinsons Urinary incontinence Chronic aspiration - being covered with levaquin Pulmonary congestion on chest x-ray Atelectasis History of Present Illness History of Present Illness LATE ENTRY for 05/18/18 examination 72 yo M with PMHx parkinsons 9 years advanced with multiple medical problems over the past few months admitted for aspiration pneumonia. 05/14-:Video swallow proves overt aspiration and abated upon resumption of honey thickened, Family at bedside, patient lives with the at [facility], Patient and family agreeable to SNU asks me about my opinion in increasing his Sinemet which she has been on the dose for many years in the background of recent delirium features, mention of some autonomic involvement now, hypotension at home causing near falls. Would like Dr. Claros contacted about admission 05/16: Very agitated this morning. notes that he never yells at baseline. Son notes this as well and notes that patient apologized to the family for "being a failure". Patient notes 3 additional people in the room and has been writing out S.O.S. He is frustrated no one understands him. His relays that before the hospital stay he was "harmlessly hallucinating" at home, seeing [employer] at the table and additional place settings, but his current mental status frightens the family. I spoke with family in waiting room about code status, they have made it clear he does not wish to be on the ventilator and would like to be DNR, though he did not have advanced directives. 05/17: Overnight he did hallucinate more, but this morning feeling better. Sitting up to chair, bedside. He is not verbalizing well, but asking for writing materials with hand signals. He was able to vocalize with me today. States he wants to be comfortable, not to be a burden to family. Wishes his mouth was not so dry. States he will take a PEG tube if Nelli wishes it. I met with Nelli and palliative care to discuss goals of care, she wishes to meet with hospice in the next day. Plan: Nothing By mouth for now Was previously on dysphagia 3 with honey thickened Social work consulted, family agreeable to SNU CODE - DNR after d/w family Check CBC again, last WBC was 12 with a high sedimentation rate. Lasix 40 IV now then daily ProcalAmine low dose [employer] evaluation again when less confused Changed all by mouth meds to IV Okay to have Parkinson's and Requip meds with sips of meds Dvt ppx Suction when necessary Trial of scopolamine patch-unsure if this will help at all. Ativan for agitation Very high fall risk Discussed with RN I have recommended against PEG tube given his recent signs of autonomic involvement with his parkinsons, though he has previously had a PEG and palliative care has been consulted per family wishes. He only had this for 4-6 weeks. Vitals Vitals Vital Signs Date Time Temp Pulse Resp B/P (MAP) Pulse Ox O2 Delivery O2 Flow Rate FiO2 05/18/18 23:30 97.5 85 24 131/63 (85) 96 Nasal Cannula 97.5 05/18/18 20:03 3.0 Physical Exam General: Alert, Cooperative, mild distress Heart: Regular rate, Normal S1, Normal S2, No murmurs Lungs: Clear Abdomen: Normal bowel sounds, No tenderness Extremities: No clubbing, No cyanosis, No edema Skin: No rashes, No breakdown, No significant lesion Comment Review of Relevant I have reviewed the following items brett (where applicable) has been applied. Labs Laboratory Tests Test 05/17/18 06:04 05/17/18 10:05 05/17/18 17:15 Glucose (Fingerstick) 90 mg/dL (70-99) Sodium Level 139 mmol/L (136-145) Potassium Level 4.3 mmol/L (3.5-5.1) Chloride Level 102 mmol/L (98-107) Carbon Dioxide Level 26 mmol/L (21-32) Anion Gap 11 (6-14) Blood Urea Nitrogen 24 mg/dL (8-26) Creatinine 0.8 mg/dL (0.7-1.3) Estimated GFR (Cockcroft-Gault) 95.6 Glucose Level 98 mg/dL (70-99) Calcium Level 8.9 mg/dL (8.5-10.1) Vancomycin Level Trough 2.0 mcg/mL (10.0-20.0) Vancomycin Last Dose Date 05/16/18 Vancomycin Last Dose Time 1000 Urine Color Verena Urine Clarity Clear Urine pH 6.0 Urine Specific [place] 1.025 Urine Protein Negative mg/dL (NEG-TRACE) Urine Glucose (UA) Negative mg/dL (NEG) Urine Ketones (Stick) Trace mg/dL (NEG) Urine Blood Negative (NEG) Urine Nitrite Negative (NEG) Urine Bilirubin Negative (NEG) Urine Urobilinogen Dipstick 1.0 mg/dL (0.2 mg/dL) Urine Leukocyte Esterase Negative (NEG) Urine RBC 0 /HPF (0-2) Urine WBC 1-4 /HPF (0-4) Urine Squamous Epithelial Cells Occ /LPF Urine Bacteria 0 /HPF (0-FEW) Urine Hyaline Casts Occasional /HPF Urine Mucus Mod /LPF Microbiology 05/12/18 Blood Culture - Final, Complete NO GROWTH AFTER 5 DAYS Medications Current Medications Sodium Chloride 500 ml @ 500 mls/hr 1X ONCE IV Last administered on at 16:05; Start 05/12/18 at 15:30; Stop 05/12/18 at 16:29; Status DC Vancomycin HCl (Vanco Per Pharmacy) 1 each PRN DAILY PRN MC SEE COMMENTS Last administered on 05/14/18at 07:54; Start 05/12/18 at 17:00; Stop 05/14/18 at 08:57 ; Status DC Levofloxacin/ Dextrose (Levaquin Per Pharmacy) 1 each PRN DAILY PRN MC SEE COMMENTS; Start 05/12/18 at 17:00; Stop 05/14/18 at 09:01; Status DC Levofloxacin/ Dextrose 150 ml @ 100 mls/hr 1X ONCE IV Last administered on at 17:30; Start 05/12/18 at 17:00; Stop 05/12/18 at 18:29; Status DC Vancomycin HCl 2 gm/Sodium Chloride 500 ml @ 250 mls/hr 1X ONCE IV Last administered on 05/12/18at 19:12; Start 05/12/18 at 18:00; Stop 05/12/18 at 19:59 ; Status DC Levofloxacin/ Dextrose 150 ml @ 100 mls/hr Q24H IV Last administered on at 17:20; Start 05/13/18 at 17:00; Stop 05/14/18 at 08:57; Status DC Vancomycin HCl 1.75 gm/Sodium Chloride 500 ml @ 250 mls/hr Q12H IV Last administered on 05/14/18 07:32; Start 05/13/18 at 07:00; Stop 05/14/18 at 08:57 ; Status DC Vancomycin HCl (Vancomycin Trough Level) 1 each 1X ONCE MC Last administered on 05/14/18 07:15; Start 05/14/18 at 06:30; Stop 05/14/18 at 06:31; Status DC Lactobacillus Rhamnosus (Culturelle) 1 cap BID PO Last administered on at 08:52; Start 05/12/18 at 21:00; Stop 05/15/18 at 11:10; Status DC Carbidopa/Levodopa (Sinemet 25/100) 1 tab QID PO Last administered on 08:53; Start 05/12/18 at 22:30; Stop 05/17/18 at 09:33; Status DC Cetirizine HCl (ZyrTEC) 10 mg DAILY PO Last administered on 05/15/18 08:53; Start 05/13/18 at 09:00; Stop 05/15/18 at 11:10; Status DC Docusate Sodium (Colace) 100 mg DAILY PO ; Start 05/13/18 at 09:00; Stop at 09:00; Status DC Docusate Sodium (Colace) 100 mg BID PO Last administered on 05/15/18at 08:52; Start 05/13/18 at 09:00 Ipratropium [place] (Atrovent) 0.5 mg RTQID NEB Last administered on 05/13/18at 07:30; Start 05/13/18 at 08:00; Stop 05/13/18 at 12:03; Status DC Miconazole Nitrate (Monistat-Derm) 1 kaylan PRN BID PRN TP RASH; Start 05/12/18 at 22:15 Nystatin (Nystop) 1 kaylan BID TP Last administered on 05/18/18at 09:00; Start at 09:00 Pramipexole Dihydrochloride (miraPEX) 1.5 mg [id number] PO Last administered on 08:51; Start 05/12/18 at 22:30; Stop 05/17/18 at 09:33; Status DC Barium Sulfate (Varibar Thin Liquid Apple) 148 gm 1X ONCE PO ; Start 05/13/18 at 11:15; Stop 05/13/18 at 11:16; Status DC Acetaminophen (Tylenol) 500 mg PRN Q6HRS PRN PO MILD PAIN / TEMP; Start at 12:00 Acetaminophen/ Codeine Phosphate (Tylenol #3) 1 tab PRN Q6HRS PRN PO MODERATE PAIN; Start 05/13/18 at 12:00; Stop 05/15/18 at 11:10; Status DC Albuterol/ Ipratropium (Duoneb) 3 ml RTQID NEB Last administered on 05/18/18at 20:03; Start 05/13/18 at 12:00 Temazepam (Restoril) 7.5 mg PRN QHS PRN PO INSOMNIA; Start 05/13/18 at 12:00 Ondansetron HCl (Zofran) 4 mg PRN Q6HRS PRN IV NAUSEA/VOMITING; Start 05/13/18 at 12:00 Ondansetron HCl (Zofran Odt) 4 mg PRN Q6HRS PRN PO NAUSEA/VOMITING; Start 05/13 at 12:00 Furosemide (Lasix) 40 mg DAILY PO Last administered on 05/15/18at 08:52; Start 05/13/18 at 13:00; Stop 05/15/18 at 11:10; Status DC Vitamin D (Vitamin D3) 5,000 unit DAILY PO Last administered on 05/15/18at 08:52 ; Start 05/13/18 at 13:00; Stop 05/15/18 at 11:10; Status DC Multivitamins (Thera M Plus) 1 tab DAILY PO Last administered on 05/15/18at 08: 51; Start 05/13/18 at 13:00; Stop 05/15/18 at 11:10; Status DC Potassium Chloride (Klor-Con) 20 meq DAILYWBKFT PO Last administered on at 08:53; Start 05/13/18 at 13:00; Stop 05/15/18 at 11:10; Status DC Prednisone (Prednisone) 60 mg 1X ONCE PO ; Start 05/13/18 at 12:30; Stop at 12:47; Status DC Prednisone (Prednisone) 40 mg DAILY PO ; Start 05/14/18 at 09:00; Stop 05/14/18 at 09:00; Status DC Levofloxacin (Levaquin) 500 mg DAILY06 PO ; Start 05/15/18 at 13:00; Stop at 13:00; Status DC Levofloxacin/ Dextrose (Levaquin Per Pharmacy) 1 each PRN DAILY PRN MC SEE COMMENTS; Start 05/15/18 at 11:15 Furosemide (Lasix) 40 mg DAILY IVP Last administered on 05/16/18at 12:04; Start 05/16/18 at 09:00 Scopolamine (Transderm-Scop) 1 patch Q3DAYS TD Last administered on 05/18/18at 10:43; Start 05/15/18 at 11:30 Amino Acids/ Glycerin/ Electrolytes 1,000 ml @ 75 mls/hr [id number] IV ; Start at 11:15; Stop 05/15/18 at 11:40; Status DC Furosemide (Lasix) 40 mg 1X ONCE IVP Last administered on 05/15/18at 14:31; Start 05/15/18 at 11:15; Stop 05/15/18 at 11:16; Status DC Levofloxacin (Levaquin) 750 mg DAILY06 PO ; Start 05/15/18 at 12:00; Stop at 12:37; Status DC Multivitamins (Thera M Plus) 1 tab DAILY PO ; Start 05/15/18 at 12:30 Potassium Chloride (Klor-Con) 20 meq DAILYWBKFT PO ; Start 05/15/18 at 12:30 Amino Acids/ Glycerin/ Electrolytes 1,000 ml @ 80 mls/hr [id number] IV Last administered on 05/18/18at 17:41; Start 05/15/18 at 18:30 Lorazepam (Ativan) 0.5 mg PRN Q4HRS PRN IV ANXIETY / AGITATION Last administered on 05/17/18at 04:10; Start 05/16/18 at 12:00 Acetaminophen (Tylenol Supp) 650 mg PRN Q6HRS PRN ID MILD PAIN / TEMP Last administered on 05/18/18at 15:30; Start 05/16/18 at 19:45 Levofloxacin/ Dextrose 150 ml @ 100 mls/hr Q24H IV Last administered on at 19:58; Start 05/16/18 at 20:00 Active Scripts Active Colace (Docusate Sodium) 100 Mg Capsule 100 Mg PO BID Reported Elizabeth Antifungal (Miconazole Nitrate) 142 Gm Cream..g. 142 Gm TP BID PRN Nystatin 15 Gm Powder 1 Kaylan TP BID Colace (Docusate Sodium) 100 Mg Capsule 1 Cap PO DAILY Vitamin D (Cholecalciferol (Vitamin D3)) 2,000 Unit Capsule 5,000 Unit PO DAILY Centrum Silver Tablet (Multivits-Min/Fa/Lycopene/Lut) 1 Each Tablet 1 Each PO DAILY Lasix (Furosemide) 40 Mg Tablet 1 Tab PO DAILY Potassium Chloride 20 Meq Tablet.er 20 Meq PO DAILY Ipratropium [place] 0.2 Mg/1 Ml Solution 0.5 Mg NEB QID Vitamin D (Cholecalciferol (Vitamin D3)) 1,000 Unit Capsule 1 Cap PO DAILY Mirapex (Pramipexole Di-Hcl) 0.25 Mg Tablet 1.5 Mg PO TID Sinemet 25-100 Mg Tablet (Carbidopa/Levodopa) 1 Each Tablet 1 Tab PO QID 30 Days take 1 tablet four times a day, add an additional tablet to the afternoon dose Zyrtec (Cetirizine Hcl) 10 Mg Tablet 1 Tab PO DAILY Vitals/I & O Vital Sign - Last 24 Hours 05/18/18 05/18/18 05/18/18 05/18/18 07:05 08:00 08:00 10:30 Temp 98.1 99.4 98.1 99.4 Pulse 81 82 Resp 18 20 B/P (MAP) 137/75 (95) 113/59 (77) Pulse Ox 93 93 92 O2 Delivery Nasal Cannula Nasal Cannula Nasal Cannula Nasal Cannula O2 Flow Rate 2.0 3.0 3.0 2.0 05/18/18 05/18/18 05/18/18 05/18/18 12:15 15:05 18:00 19:53 Temp 100.1 99.8 100.1 99.8 Pulse 96 91 Resp 22 20 B/P (MAP) 139/76 (97) 144/70 (94) Pulse Ox 95 93 92 91 O2 Delivery Nasal Cannula Nasal Cannula Nasal Cannula Nasal Cannula O2 Flow Rate 3.0 2.0 3.0 2.0 05/18/18 05/18/18 05/18/18 20:00 20:03 23:30 Temp 97.5 97.5 Pulse 85 Resp 24 B/P (MAP) 131/63 (85) Pulse Ox 93 96 O2 Delivery Nasal Cannula Nasal Cannula Nasal Cannula O2 Flow Rate 3.0 3.0 Intake and Output 05/18/18 05/18/18 05/19/18 15:00 23:00 07:00 Intake Total 0 ml 150 ml 400 ml Output Total 500 ml Balance 0 ml 150 ml -100 ml Nutrition Consultation Dietary Evaluation: Recommendations by RD: PPN/TPN Comments: continue PPN at this time monitor plan of care Expected Outcomes/Goals: to be determined Malnutrition Findings: Food and Nutrition Intake (Mod: <75% est energy req 7days Weight Status: Obese MARVA JOYA MD May 19, 2018 02:39
[2018-05-19 03:39] VITALS: BP 135/69
[2018-05-19 07:00] VITALS: BP 128/67
[2018-05-19] MEDS: IPRATRPIUM/ALBUTEROL 0.5/2.5MG 3 ML NEBU. NEB SCH ×4 (07:12→19:04)
[2018-05-19] MEDS: FUROSEMIDE 40 MG/4 ML VIAL. IVP SCH (07:22)
[2018-05-19] MEDS: MULTIVITAMIN with MINERAL TABLET. PO SCH (07:22)
[2018-05-19] MEDS: POTASSIUM CHLORIDE 20 MEQ TABLET.ER. PO SCH (07:22)
[2018-05-19] MEDS: DOCUSATE SODIUM 100 MG CAPSULE. PO SCH ×2 (07:22→20:48)
--- NOTE | 2018-05-19 08:00 | PDOC ---
PROGRESS NOTES Chief Complaint Chief Complaint Parkinson's, with dementia and delirium fxs - he is on pramipexole and carbidopa / levodopa Diabetic neuropathy Possible dysphagia Possible pneumonia. Dysautonomia, from Parkinsons Urinary incontinence Chronic aspiration - being covered with levaquin Pulmonary congestion on chest x-ray Atelectasis History of Present Illness History of Present Illness 72 yo M with PMHx parkinsons 9 years advanced with multiple medical problems over the past few months admitted for aspiration pneumonia. 05/14-:Video swallow proves overt aspiration and abated upon resumption of honey thickened, Family at bedside, patient lives with the at [place], Patient and family agreeable to [facility] asks me about my opinion in increasing his Sinemet which she has been on the dose for many years in the background of recent delirium features, mention of some autonomic involvement now, hypotension at home causing near falls. Would like Dr. Claros contacted about admission 05/16: Very agitated this morning. notes that he never yells at baseline. Son notes this as well and notes that patient apologized to the family for "being a failure". Patient notes 3 additional people in the room and has been writing out S.O.S. He is frustrated no one understands him. His relays that before the hospital stay he was "harmlessly hallucinating" at home, seeing [employer] at the table and additional place settings, but his current mental status frightens the family. I spoke with family in waiting room about code status, they have made it clear he does not wish to be on the ventilator and would like to be DNR, though he did not have advanced directives. 05/17: Overnight he did hallucinate more, but this morning feeling better. Sitting up to chair, bedside. He is not verbalizing well, but asking for writing materials with hand signals. 05/18: He was able to vocalize with me today. States he wants to be comfortable, not to be a burden to family. Wishes his mouth was not so dry. States he will take a PEG tube if Nelli wishes it. I met with Nelli and palliative care to discuss goals of care, she wishes to meet with hospice in the next day. Patient continues to ask his to leave. He also c/o throat pain, removed thickened secretions with some relief. He continues to say no to PEG feedings. Is ok with meeting with hospice for d/c planning. Plan: Nothing By mouth for now Was previously on dysphagia 3 with honey thickened Social work consulted, family agreeable to Hospice, prefers home, needs a day CODE - DNR after d/w family ProcalAmine low dose GRAIN II FARMWORK[employer] evaluation again Dvt ppx Suction when necessary Trial of scopolamine patch-unsure if this will help at all. Ativan for agitation Very high fall risk Discussed with RN I have recommended against PEG tube given his recent signs of autonomic involvement with his parkinsons, though he has previously had a PEG and palliative care has been consulted per family wishes. He only had this for 4-6 weeks. Vitals Vitals Vital Signs Date Time Temp Pulse Resp B/P (MAP) Pulse Ox O2 Delivery O2 Flow Rate FiO2 05/19/18 07:14 98 Nasal Cannula 3.0 05/19/18 07:00 98.3 72 20 128/67 (87) 98.3 Physical Exam General: Alert, Cooperative, mild distress Heart: Regular rate, Normal S1, Normal S2, No murmurs Lungs: Clear Abdomen: Normal bowel sounds, No tenderness Extremities: No clubbing, No cyanosis, No edema Skin: No rashes, No breakdown, No significant lesion Comment Review of Relevant I have reviewed the following items brett (where applicable) has been applied. Labs Laboratory Tests Test 05/17/18 10:05 05/17/18 17:15 Sodium Level 139 mmol/L (136-145) Potassium Level 4.3 mmol/L (3.5-5.1) Chloride Level 102 mmol/L (98-107) Carbon Dioxide Level 26 mmol/L (21-32) Anion Gap 11 (6-14) Blood Urea Nitrogen 24 mg/dL (8-26) Creatinine 0.8 mg/dL (0.7-1.3) Estimated GFR (Cockcroft-Gault) 95.6 Glucose Level 98 mg/dL (70-99) Calcium Level 8.9 mg/dL (8.5-10.1) Vancomycin Level Trough 2.0 mcg/mL (10.0-20.0) Vancomycin Last Dose Date 05/16/18 Vancomycin Last Dose Time 1000 Urine Color Verena Urine Clarity Clear Urine pH 6.0 Urine Specific [place] 1.025 Urine Protein Negative mg/dL (NEG-TRACE) Urine Glucose (UA) Negative mg/dL (NEG) Urine Ketones (Stick) Trace mg/dL (NEG) Urine Blood Negative (NEG) Urine Nitrite Negative (NEG) Urine Bilirubin Negative (NEG) Urine Urobilinogen Dipstick 1.0 mg/dL (0.2 mg/dL) Urine Leukocyte Esterase Negative (NEG) Urine RBC 0 /HPF (0-2) Urine WBC 1-4 /HPF (0-4) Urine Squamous Epithelial Cells Occ /LPF Urine Bacteria 0 /HPF (0-FEW) Urine Hyaline Casts Occasional /HPF Urine Mucus Mod /LPF Microbiology 05/12/18 Blood Culture - Final, Complete NO GROWTH AFTER 5 DAYS Medications Current Medications Sodium Chloride 500 ml @ 500 mls/hr 1X ONCE IV Last administered on at 16:05; Start 05/12/18 at 15:30; Stop 05/12/18 at 16:29; Status DC Vancomycin HCl (Vanco Per Pharmacy) 1 each PRN DAILY PRN MC SEE COMMENTS Last administered on 05/14/18at 07:54; Start 05/12/18 at 17:00; Stop 05/14/18 at 08:57 ; Status DC Levofloxacin/ Dextrose (Levaquin Per Pharmacy) 1 each PRN DAILY PRN MC SEE COMMENTS; Start 05/12/18 at 17:00; Stop 05/14/18 at 09:01; Status DC Levofloxacin/ Dextrose 150 ml @ 100 mls/hr 1X ONCE IV Last administered on at 17:30; Start 05/12/18 at 17:00; Stop 05/12/18 at 18:29; Status DC Vancomycin HCl 2 gm/Sodium Chloride 500 ml @ 250 mls/hr 1X ONCE IV Last administered on 05/12/18at 19:12; Start 05/12/18 at 18:00; Stop 05/12/18 at 19:59 ; Status DC Levofloxacin/ Dextrose 150 ml @ 100 mls/hr Q24H IV Last administered on at 17:20; Start 05/13/18 at 17:00; Stop 05/14/18 at 08:57; Status DC Vancomycin HCl 1.75 gm/Sodium Chloride 500 ml @ 250 mls/hr Q12H IV Last administered on 05/14/18at 07:32; Start 05/13/18 at 07:00; Stop 05/14/18 at 08:57 ; Status DC Vancomycin HCl (Vancomycin Trough Level) 1 each 1X ONCE MC Last administered on 05/14/18at 07:15; Start 05/14/18 at 06:30; Stop 05/14/18 at 06:31; Status DC Lactobacillus Rhamnosus (Culturelle) 1 cap BID PO Last administered on at 08:52; Start 05/12/18 at 21:00; Stop 05/15/18 at 11:10; Status DC Carbidopa/Levodopa (Sinemet 25/100) 1 tab QID PO Last administered on at 08:53; Start 05/12/18 at 22:30; Stop 05/17/18 at 09:33; Status DC Cetirizine HCl (ZyrTEC) 10 mg DAILY PO Last administered on 05/15/18at 08:53; Start 05/13/18 at 09:00; Stop 05/15/18 at 11:10; Status DC Docusate Sodium (Colace) 100 mg DAILY PO ; Start 05/13/18 at 09:00; Stop at 09:00; Status DC Docusate Sodium (Colace) 100 mg BID PO Last administered on 05/15/18at 08:52; Start 05/13/18 at 09:00 Ipratropium [place] (Atrovent) 0.5 mg RTQID NEB Last administered on 05/13/18at 07:30; Start 05/13/18 at 08:00; Stop 05/13/18 at 12:03; Status DC Miconazole Nitrate (Monistat-Derm) 1 kaylan PRN BID PRN TP RASH; Start 05/12/18 at 22:15 Nystatin (Nystop) 1 kaylan BID TP Last administered on 05/18/18at 09:00; Start at 09:00 Pramipexole Dihydrochloride (miraPEX) 1.5 mg [id number] PO Last administered on at 08:51; Start 05/12/18 at 22:30; Stop 05/17/18 at 09:33; Status DC Barium Sulfate (Varibar Thin Liquid Apple) 148 gm 1X ONCE PO ; Start 05/13/18 at 11:15; Stop 05/13/18 at 11:16; Status DC Acetaminophen (Tylenol) 500 mg PRN Q6HRS PRN PO MILD PAIN / TEMP; Start at 12:00 Acetaminophen/ Codeine Phosphate (Tylenol #3) 1 tab PRN Q6HRS PRN PO MODERATE PAIN; Start 05/13/18 at 12:00; Stop 05/15/18 at 11:10; Status DC Albuterol/ Ipratropium (Duoneb) 3 ml RTQID NEB Last administered on 05/19/18at 07:12; Start 05/13/18 at 12:00 Temazepam (Restoril) 7.5 mg PRN QHS PRN PO INSOMNIA; Start 05/13/18 at 12:00 Ondansetron HCl (Zofran) 4 mg PRN Q6HRS PRN IV NAUSEA/VOMITING; Start 05/13/18 at 12:00 Ondansetron HCl (Zofran Odt) 4 mg PRN Q6HRS PRN PO NAUSEA/VOMITING; Start 05/13 at 12:00 Furosemide (Lasix) 40 mg DAILY PO Last administered on 05/15/18at 08:52; Start 05/13/18 at 13:00; Stop 05/15/18 at 11:10; Status DC Vitamin D (Vitamin D3) 5,000 unit DAILY PO Last administered on 05/15/18at 08:52 ; Start 05/13/18 at 13:00; Stop 05/15/18 at 11:10; Status DC Multivitamins (Thera M Plus) 1 tab DAILY PO Last administered on 05/15/18at 08: 51; Start 05/13/18 at 13:00; Stop 05/15/18 at 11:10; Status DC Potassium Chloride (Klor-Con) 20 meq DAILYWBKFT PO Last administered on at 08:53; Start 05/13/18 at 13:00; Stop 05/15/18 at 11:10; Status DC Prednisone (Prednisone) 60 mg 1X ONCE PO ; Start 05/13/18 at 12:30; Stop at 12:47; Status DC Prednisone (Prednisone) 40 mg DAILY PO ; Start 05/14/18 at 09:00; Stop 05/14/18 at 09:00; Status DC Levofloxacin (Levaquin) 500 mg DAILY06 PO ; Start 05/15/18 at 13:00; Stop at 13:00; Status DC Levofloxacin/ Dextrose (Levaquin Per Pharmacy) 1 each PRN DAILY PRN MC SEE COMMENTS; Start 05/15/18 at 11:15 Furosemide (Lasix) 40 mg DAILY IVP Last administered on 05/16/18at 12:04; Start 05/16/18 at 09:00 Scopolamine (Transderm-Scop) 1 patch Q3DAYS TD Last administered on 05/18/18at 10:43; Start 05/15/18 at 11:30 Amino Acids/ Glycerin/ Electrolytes 1,000 ml @ 75 mls/hr [id number] IV ; Start at 11:15; Stop 05/15/18 at 11:40; Status DC Furosemide (Lasix) 40 mg 1X ONCE IVP Last administered on 05/15/18at 14:31; Start 05/15/18 at 11:15; Stop 05/15/18 at 11:16; Status DC Levofloxacin (Levaquin) 750 mg DAILY06 PO ; Start 05/15/18 at 12:00; Stop at 12:37; Status DC Multivitamins (Thera M Plus) 1 tab DAILY PO ; Start 05/15/18 at 12:30 Potassium Chloride (Klor-Con) 20 meq DAILYWBKFT PO ; Start 05/15/18 at 12:30 Amino Acids/ Glycerin/ Electrolytes 1,000 ml @ 80 mls/hr [id number] IV Last administered on 05/18/18at 17:41; Start 05/15/18 at 18:30 Lorazepam (Ativan) 0.5 mg PRN Q4HRS PRN IV ANXIETY / AGITATION Last administered on 05/17/18at 04:10; Start 05/16/18 at 12:00 Acetaminophen (Tylenol Supp) 650 mg PRN Q6HRS PRN [place] MILD PAIN / TEMP Last administered on 05/18/18at 15:30; Start 05/16/18 at 19:45 Levofloxacin/ Dextrose 150 ml @ 100 mls/hr Q24H IV Last administered on at 19:58; Start 05/16/18 at 20:00 Active Scripts Active Colace (Docusate Sodium) 100 Mg Capsule 100 Mg PO BID Reported Elizabeth Antifungal (Miconazole Nitrate) 142 Gm Cream..g. 142 Gm TP BID PRN Nystatin 15 Gm Powder 1 Kaylan TP BID Colace (Docusate Sodium) 100 Mg Capsule 1 Cap PO DAILY Vitamin D (Cholecalciferol (Vitamin D3)) 2,000 Unit Capsule 5,000 Unit PO DAILY Centrum Silver Tablet (Multivits-Min/Fa/Lycopene/Lut) 1 Each Tablet 1 Each PO DAILY Lasix (Furosemide) 40 Mg Tablet 1 Tab PO DAILY Potassium Chloride 20 Meq Tablet.er 20 Meq PO DAILY Ipratropium [place] 0.2 Mg/1 Ml Solution 0.5 Mg NEB QID Vitamin D (Cholecalciferol (Vitamin D3)) 1,000 Unit Capsule 1 Cap PO DAILY Mirapex (Pramipexole Di-Hcl) 0.25 Mg Tablet 1.5 Mg PO TID Sinemet 25-100 Mg Tablet (Carbidopa/Levodopa) 1 Each Tablet 1 Tab PO QID 30 Days take 1 tablet four times a day, add an additional tablet to the afternoon dose Zyrtec (Cetirizine Hcl) 10 Mg Tablet 1 Tab PO DAILY Vitals/I & O Vital Sign - Last 24 Hours 05/18/18 05/18/18 05/18/18 05/18/18 10:30 12:15 15:05 18:00 Temp 99.4 100.1 99.4 100.1 Pulse 82 96 Resp 20 22 B/P (MAP) 113/59 (77) 139/76 (97) Pulse Ox 92 95 93 92 O2 Delivery Nasal Cannula Nasal Cannula Nasal Cannula Nasal Cannula O2 Flow Rate 2.0 3.0 2.0 3.0 05/18/18 05/18/18 05/18/18 05/18/18 19:53 20:00 20:03 23:30 Temp 99.8 97.5 99.8 97.5 Pulse 91 85 Resp 20 24 B/P (MAP) 144/70 (94) 131/63 (85) Pulse Ox 91 93 96 O2 Delivery Nasal Cannula Nasal Cannula Nasal Cannula Nasal Cannula O2 Flow Rate 2.0 3.0 3.0 05/19/18 05/19/18 05/19/18 03:39 07:00 07:14 Temp 97.8 98.3 97.8 98.3 Pulse 80 72 Resp 20 20 B/P (MAP) 135/69 (91) 128/67 (87) Pulse Ox 94 95 98 O2 Delivery Nasal Cannula Nasal Cannula Nasal Cannula O2 Flow Rate 2.0 2.0 3.0 Intake and Output 05/18/18 05/18/18 05/19/18 14:59 22:59 06:59 Intake Total 0 ml 150 ml 400 ml Output Total 800 ml Balance 0 ml 150 ml -400 ml Nutrition Consultation Dietary Evaluation: Recommendations by RD: PPN/TPN Comments: continue PPN at this time monitor plan of care Expected Outcomes/Goals: to be determined Malnutrition Findings: Food and Nutrition Intake (Mod: <75% est energy req 7days Weight Status: Obese MARVA JOYA MD May 19, 2018 08:00
[2018-05-19] MEDS: AMINO AC 3%/ELECTROLYTE/GLYCER 1,000 ML IV SCH ×2 (08:57→23:03)
[2018-05-19] MEDS: NYSTATIN TOPICAL POWDER 15GM BOTTLE. TP SCH ×2 (08:57→20:56)
[2018-05-19 11:04] VITALS: BP 138/62
--- NOTE | 2018-05-19 12:46 | PDOC ---
PULMONARY PROGRESS NOTES Subjective RESTLESS NO SOA Vitals Vital Signs Date Time Temp Pulse Resp B/P (MAP) Pulse Ox O2 Delivery O2 Flow Rate FiO2 05/19/18 11:50 Nasal Cannula 2.0 05/19/18 11:04 98.8 78 22 138/62 (87) 93 98.8 General: Alert, No acute distress HEENT: Other (nc at perrl) Lungs: Clear Cardiovascular: S1, S2 Abdomen: Soft, Non-tender Neuro Exam: Alert Extremities: Other Skin: Warm Labs Laboratory Tests Test 05/17/18 17:15 Urine Color Verena Urine Clarity Clear Urine pH 6.0 Urine Specific [place] 1.025 Urine Protein Negative mg/dL (NEG-TRACE) Urine Glucose (UA) Negative mg/dL (NEG) Urine Ketones (Stick) Trace mg/dL (NEG) Urine Blood Negative (NEG) Urine Nitrite Negative (NEG) Urine Bilirubin Negative (NEG) Urine Urobilinogen Dipstick 1.0 mg/dL (0.2 mg/dL) Urine Leukocyte Esterase Negative (NEG) Urine RBC 0 /HPF (0-2) Urine WBC 1-4 /HPF (0-4) Urine Squamous Epithelial Cells Occ /LPF Urine Bacteria 0 /HPF (0-FEW) Urine Hyaline Casts Occasional /HPF Urine Mucus Mod /LPF Medications Active Scripts Medications Dose Route/Sig Max Daily Dose Days Date Category Dose Instructions Elizabeth Antifungal (Miconazole Nitrate) 142 Gm Cream..g. 142 Gm TP BID PRN 05/12/18 Reported Nystatin 15 Gm Powder 1 Kaylan TP BID 05/12/18 Reported Colace (Docusate Sodium) 100 Mg Capsule 1 Cap PO DAILY 04/13/18 Reported Vitamin D (Cholecalciferol (Vitamin D3)) 2,000 Unit Capsule 5,000 Unit PO DAILY 04/13/18 Reported Centrum Silver Tablet (Multivits-Min/Fa/Lycopene/Lut) 1 Each Tablet 1 Each PO DAILY 04/13/18 Reported Lasix (Furosemide) 40 Mg Tablet 1 Tab PO DAILY 04/13/18 Reported Potassium Chloride 20 Meq Tablet.er 20 Meq PO DAILY 04/13/18 Reported Ipratropium [place] 0.2 Mg/1 Ml Solution 0.5 Mg NEB QID 04/13/18 Reported Vitamin D (Cholecalciferol (Vitamin D3)) 1,000 Unit Capsule 1 Cap PO DAILY 04/13/18 Reported Mirapex (Pramipexole Di-Hcl) 0.25 Mg Tablet 1.5 Mg PO TID 04/13/18 Reported Sinemet 25-100 Mg Tablet (Carbidopa/Levodopa) 1 Each Tablet 1 Tab PO QID 30 07/17/15 Reported take 1 tablet four times a day, add an additional tablet to the afternoon dose Zyrtec (Cetirizine Hcl) 10 Mg Tablet 1 Tab PO DAILY 03/20/15 Reported Colace (Docusate Sodium) 100 Mg Capsule 100 Mg PO BID 04/06/14 Rx Impression . IMPRESSION: 1. Aspiration pneumonia. 2. dysphagia 3. Persistent bilateral pulmonary infiltrates related to chronic aspiration. 4. History of chronic respiratory failure. As indicated above, the patient was hospitalized here, treated for acute respiratory distress syndrome, underwent tracheotomy and eventually was decannulated. 5. Parkinsonism. ADVANCED 6. Diabetic neuropathy. 7. Generalized weakness. 8. Toxic metabolic encephalopathy present upon admission, improved. Plan . PLAN: 1. abx per ID 2. The patient is status post bronchoscopy. Cultures at that time were negative. 2. Follow speech therapist's recommendation for diet./ On PPN./ palliative meeting done to discuss goal of care and final inspector motorcyles nutrition option/ hospice option discussed as well 3. Continue other medication. 4. Continue oxygen supplementation. 02 titration. 5. BD 6. elevate HOB/ PPN for now discussed w pts not much else to offer PATITO ANTONIO MD May 19, 2018 12:46
[2018-05-19 15:17] VITALS: BP 136/65
--- NOTE | 2018-05-19 16:21 | NUR ---
SW following. Spoke with hospice. They will be delivering equipment today. requested for transport to be done tomorrow after 1300. SW will continue to follow.
[2018-05-19 19:20] VITALS: BP 136/69
--- NOTE | 2018-05-19 20:09 | PDOC ---
PROGRESS NOTES Assessment Assessment Respiratory failure. Metabolic encephalopathy. Delirium. Agitation. Severe dysphagia. HTN PD. Degenerative spine disease. Diabetic peripheral neuropathy. Brain atrophy, parietal lobe predominant. Obesity. RECOMMENDATIONS/PLAN: Continue medical treatment at the present time. Ativan 0.5 mg IV q4h PRN. Patient and his declined NG and PEG and decided palliative care. Unable to administrate medications that only have PO formula. Discussed with his in detail at bedside on 05/19/18. Brain MRI on 07/08/17: Brain value loss. Past Medical History Cardiovascular: HTN CENTRAL NERVOUS SYSTEM: Peripheral neuropathy (diabetic, axonal, EMG 05/06/17), Parkinson's Musculoskeletal: Lumbar and cervical spinal stenosis. Endocrine: Diabetes Past Surgical History: Lumbar and cervical, fifth digit fracture. C-spine stenosis s/p surgery. Family History Parkinson's disease, Alzheimer's. Social History Denied smoking, drinking and illicit drug use. ALLERGY: Reviewed. MEDICATIONS: Refer to MAR REVIEW OF SYSTEMS: Constitutional: Obesity. Head: No traumatic brain or head injury. Skin: No rash. Ear: No infection. Eyes: No vision loss, or diplopia. Nose: No bleeding or purulent discharges. Hearing: Mild hearing decrease. Neck: s /p surgery Cardiac: HTN Pulmonary: No COPD. GI: No GI Ulcer, GI bleeding Urinary/genital: No dysuria, incontinence, urinary retention. Endocrine: Diabetes Mellitus, obesity. Skeletomuscular: No muscular atrophy, deformity. Neurological: see HP. Psychiatric: Denies drug use/abuse. Otherwise, not [id number] review of systems. PHYSICAL EXAMINATION: General appearance in subacute distress. HEENT: Normocephalic and nontraumatic. Eyes, nose, ears, and throat are unremarkable. Hearing decrease. Neck is supple. No lymphadenopathy. No bruits are heard over the carotid artery. No Crepitus. Cardiovascular: S1, S2, regular rate and rhythm. Pulmonary: Clear to auscultation bilaterally. Abdomen: Bowel sounds are positive. Extremities: No rash, lesions. No restriction of range of motion NEUROLOGICAL EXAMINATION: In confusional state. On NC 02. Not oriented to time, place but knew his at bedside. PERRL. EOMI not able to exam due to not follow commands. CN: no acute focal findings. Muscle tone: Increased. Muscle strength: 5- DTR: 1+ UE, 1- at knee. Plantar reflex: Neutral response bilaterally Gait: Unable to walk at the present time. Sensory exam: no acute abnormal findings, but exam not accurate in this mentation. No acute cerebellar signs elicited. F-T-N test not performed due to not follow commands. Objective Objective Vital Signs Date Time Temp Pulse Resp B/P (MAP) Pulse Ox O2 Delivery O2 Flow Rate FiO2 05/19/18 19:06 94 Nasal Cannula 3.0 05/19/18 15:17 97.5 71 22 136/65 (88) 97.5 Intake and Output 05/19/18 07:00 Intake Total 550 ml Output Total 800 ml Balance -250 ml Intake Oral 0 ml IV Total 550 ml Output Urine Total 800 ml # Voids 3 # Bowel Movements 1 Vitals Signs Vitals VS - Last 72 Hours, by Label Date Time Temp Pulse Resp B/P (MAP) Pulse Ox O2 Delivery O2 Flow Rate FiO2 05/19/18 19:06 94 Nasal Cannula 3.0 05/19/18 15:22 Nasal Cannula 3.0 05/19/18 15:17 97.5 71 22 136/65 (88) 94 Nasal Cannula 2.0 97.5 05/19/18 11:50 Nasal Cannula 2.0 05/19/18 11:04 98.8 78 22 138/62 (87) 93 Nasal Cannula 2.0 98.8 05/19/18 08:00 Nasal Cannula 3.0 05/19/18 07:14 98 Nasal Cannula 3.0 05/19/18 07:00 98.3 72 20 128/67 (87) 95 Nasal Cannula 2.0 98.3 05/19/18 03:39 97.8 80 20 135/69 (91) 94 Nasal Cannula 2.0 97.8 05/18/18 23:30 97.5 85 24 131/63 (85) 96 Nasal Cannula 97.5 05/18/18 20:03 93 Nasal Cannula 3.0 05/18/18 20:00 Nasal Cannula 3.0 05/18/18 19:53 99.8 91 20 144/70 (94) 91 Nasal Cannula 2.0 99.8 05/18/18 18:00 92 Nasal Cannula 3.0 05/18/18 15:05 100.1 96 22 139/76 (97) 93 Nasal Cannula 2.0 100.1 05/18/18 12:15 95 Nasal Cannula 3.0 05/18/18 10:30 99.4 82 20 113/59 (77) 92 Nasal Cannula 2.0 99.4 05/18/18 08:00 93 Nasal Cannula 3.0 05/18/18 08:00 Nasal Cannula 3.0 05/18/18 07:05 98.1 81 18 137/75 (95) 93 Nasal Cannula 2.0 98.1 Laboratory Laboratory Microbiology 05/12/18 Blood Culture - Final, Complete NO GROWTH AFTER 5 DAYS Comment Review of Relevant I have reviewed the following items brett (where applicable) has been applied. RD EWING MD May 19, 2018 20:09
[2018-05-19 23:25] VITALS: BP 125/51
[2018-05-20 03:25] VITALS: BP 128/65
[2018-05-20 07:00] VITALS: BP 124/66
[2018-05-20] MEDS: DOCUSATE SODIUM 100 MG CAPSULE. PO SCH (07:30)
[2018-05-20] MEDS: MULTIVITAMIN with MINERAL TABLET. PO SCH (07:30)
[2018-05-20] MEDS: POTASSIUM CHLORIDE 20 MEQ TABLET.ER. PO SCH (07:30)
--- NOTE | 2018-05-20 07:42 | PDOC ---
PROGRESS NOTES Chief Complaint Chief Complaint Parkinson's, with dementia and delirium fxs - he is on pramipexole and carbidopa / levodopa Diabetic neuropathy Possible dysphagia Possible pneumonia. Dysautonomia, from Parkinsons Urinary incontinence Chronic aspiration - being covered with levaquin Pulmonary congestion on chest x-ray Atelectasis History of Present Illness History of Present Illness 72 yo M with PMHx parkinsons 9 years advanced with multiple medical problems over the past few months admitted for aspiration pneumonia. 05/14-:Video swallow proves overt aspiration and abated upon resumption of honey thickened, Family at bedside, patient lives with the at [place], Patient and family agreeable to SNU asks me about my opinion in increasing his Sinemet which she has been on the dose for many years in the background of recent delirium features, mention of some autonomic involvement now, hypotension at home causing near falls. Would like Dr. Claros contacted about admission 05/16: Very agitated this morning. notes that he never yells at baseline. Son notes this as well and notes that patient apologized to the family for "being a failure". Patient notes 3 additional people in the room and has been writing out S.O.S. He is frustrated no one understands him. His relays that before the hospital stay he was "harmlessly hallucinating" at home, seeing [employer] at the table and additional place settings, but his current mental status frightens the family. I spoke with family in waiting room about code status, they have made it clear he does not wish to be on the ventilator and would like to be DNR, though he did not have advanced directives. 05/17: Overnight he did hallucinate more, but this morning feeling better. Sitting up to chair, bedside. He is not verbalizing well, but asking for writing materials with hand signals. 05/18: He was able to vocalize with me today. States he wants to be comfortable, not to be a burden to family. Wishes his mouth was not so dry. States he will take a PEG tube if Nelli wishes it. I met with Nelli and palliative care to discuss goals of care, she wishes to meet with hospice in the next day. 05/19: Patient continues to ask his to leave. He also c/o throat pain, removed thickened secretions with some relief. He continues to say no to PEG feedings. Is ok with meeting with hospice for d/c planning. 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 Ativan for agitation Very high fall risk Discussed with RN I have recommended against PEG tube given his recent signs of autonomic involvement with his parkinsons, though he has previously had a PEG and palliative care has been consulted per family wishes. He only had this for 4-6 weeks previously, wishes for home hospice Vitals Vitals Vital Signs Date Time Temp Pulse Resp B/P (MAP) Pulse Ox O2 Delivery O2 Flow Rate FiO2 05/20/18 03:25 99.6 78 30 128/65 (86) 93 Nasal Cannula 3.0 99.6 Physical Exam General: Alert, Cooperative, mild distress Heart: Regular rate, Normal S1, Normal S2, No murmurs Lungs: Clear Abdomen: Normal bowel sounds, No tenderness Extremities: No clubbing, No cyanosis, No edema Skin: No rashes, No breakdown, No significant lesion Comment Review of Relevant I have reviewed the following items brett (where applicable) has been applied. Labs Microbiology 05/12/18 Blood Culture - Final, Complete NO GROWTH AFTER 5 DAYS Medications Current Medications Sodium Chloride 500 ml @ 500 mls/hr 1X ONCE IV Last administered on at 16:05; Start 05/12/18 at 15:30; Stop 05/12/18 at 16:29; Status DC Vancomycin HCl (Vanco Per Pharmacy) 1 each PRN DAILY PRN MC SEE COMMENTS Last administered on 05/14/18at 07:54; Start 05/12/18 at 17:00; Stop 05/14/18 at 08:57 ; Status DC Levofloxacin/ Dextrose (Levaquin Per Pharmacy) 1 each PRN DAILY PRN MC SEE COMMENTS; Start 05/12/18 at 17:00; Stop 05/14/18 at 09:01; Status DC Levofloxacin/ Dextrose 150 ml @ 100 mls/hr 1X ONCE IV Last administered on at 17:30; Start 05/12/18 at 17:00; Stop 05/12/18 at 18:29; Status DC Vancomycin HCl 2 gm/Sodium Chloride 500 ml @ 250 mls/hr 1X ONCE IV Last administered on 05/12/18at 19:12; Start 05/12/18 at 18:00; Stop 05/12/18 at 19:59 ; Status DC Levofloxacin/ Dextrose 150 ml @ 100 mls/hr Q24H IV Last administered on at 17:20; Start 05/13/18 at 17:00; Stop 05/14/18 at 08:57; Status DC Vancomycin HCl 1.75 gm/Sodium Chloride 500 ml @ 250 mls/hr Q12H IV Last administered on 05/14/18at 07:32; Start 05/13/18 at 07:00; Stop 05/14/18 at 08:57 ; Status DC Vancomycin HCl (Vancomycin Trough Level) 1 each 1X ONCE MC Last administered on 05/14/18at 07:15; Start 05/14/18 at 06:30; Stop 05/14/18 at 06:31; Status DC Lactobacillus Rhamnosus (Culturelle) 1 cap BID PO Last administered on at 08:52; Start 05/12/18 at 21:00; Stop 05/15/18 at 11:10; Status DC Carbidopa/Levodopa (Sinemet 25/100) 1 tab QID PO Last administered on at 08:53; Start 05/12/18 at 22:30; Stop 05/17/18 at 09:33; Status DC Cetirizine HCl (ZyrTEC) 10 mg DAILY PO Last administered on 05/15/18at 08:53; Start 05/13/18 at 09:00; Stop 05/15/18 at 11:10; Status DC Docusate Sodium (Colace) 100 mg DAILY PO ; Start 05/13/18 at 09:00; Stop at 09:00; Status DC Docusate Sodium (Colace) 100 mg BID PO Last administered on 05/15/18at 08:52; Start 05/13/18 at 09:00 Ipratropium [place] (Atrovent) 0.5 mg RTQID NEB Last administered on 05/13/18at 07:30; Start 05/13/18 at 08:00; Stop 05/13/18 at 12:03; Status DC Miconazole Nitrate (Monistat-Derm) 1 kaylan PRN BID PRN TP RASH; Start 05/12/18 at 22:15 Nystatin (Nystop) 1 kaylan BID TP Last administered on 05/19/18at 20:56; Start at 09:00 Pramipexole Dihydrochloride (miraPEX) 1.5 mg [id number] PO Last administered on at 08:51; Start 05/12/18 at 22:30; Stop 05/17/18 at 09:33; Status DC Barium Sulfate (Varibar Thin Liquid Apple) 148 gm 1X ONCE PO ; Start 05/13/18 at 11:15; Stop 05/13/18 at 11:16; Status DC Acetaminophen (Tylenol) 500 mg PRN Q6HRS PRN PO MILD PAIN / TEMP; Start at 12:00 Acetaminophen/ Codeine Phosphate (Tylenol #3) 1 tab PRN Q6HRS PRN PO MODERATE PAIN; Start 05/13/18 at 12:00; Stop 05/15/18 at 11:10; Status DC Albuterol/ Ipratropium (Duoneb) 3 ml RTQID NEB Last administered on 05/19/18at 19:04; Start 05/13/18 at 12:00 Temazepam (Restoril) 7.5 mg PRN QHS PRN PO INSOMNIA; Start 05/13/18 at 12:00 Ondansetron HCl (Zofran) 4 mg PRN Q6HRS PRN IV NAUSEA/VOMITING; Start 05/13/18 at 12:00 Ondansetron HCl (Zofran Odt) 4 mg PRN Q6HRS PRN PO NAUSEA/VOMITING; Start 05/13 at 12:00 Furosemide (Lasix) 40 mg DAILY PO Last administered on 05/15/18at 08:52; Start 05/13/18 at 13:00; Stop 05/15/18 at 11:10; Status DC Vitamin D (Vitamin D3) 5,000 unit DAILY PO Last administered on 05/15/18at 08:52 ; Start 05/13/18 at 13:00; Stop 05/15/18 at 11:10; Status DC Multivitamins (Thera M Plus) 1 tab DAILY PO Last administered on 05/15/18at 08: 51; Start 05/13/18 at 13:00; Stop 05/15/18 at 11:10; Status DC Potassium Chloride (Klor-Con) 20 meq DAILYWBKFT PO Last administered on at 08:53; Start 05/13/18 at 13:00; Stop 05/15/18 at 11:10; Status DC Prednisone (Prednisone) 60 mg 1X ONCE PO ; Start 05/13/18 at 12:30; Stop at 12:47; Status DC Prednisone (Prednisone) 40 mg DAILY PO ; Start 05/14/18 at 09:00; Stop 05/14/18 at 09:00; Status DC Levofloxacin (Levaquin) 500 mg DAILY06 PO ; Start 05/15/18 at 13:00; Stop at 13:00; Status DC Levofloxacin/ Dextrose (Levaquin Per Pharmacy) 1 each PRN DAILY PRN MC SEE COMMENTS; Start 05/15/18 at 11:15 Furosemide (Lasix) 40 mg DAILY IVP Last administered on 05/16/18at 12:04; Start 05/16/18 at 09:00 Scopolamine (Transderm-Scop) 1 patch Q3DAYS TD Last administered on 05/18/18at 10:43; Start 05/15/18 at 11:30 Amino Acids/ Glycerin/ Electrolytes 1,000 ml @ 75 mls/hr [id number] IV ; Start at 11:15; Stop 05/15/18 at 11:40; Status DC Furosemide (Lasix) 40 mg 1X ONCE IVP Last administered on 05/15/18at 14:31; Start 05/15/18 at 11:15; Stop 05/15/18 at 11:16; Status DC Levofloxacin (Levaquin) 750 mg DAILY06 PO ; Start 05/15/18 at 12:00; Stop at 12:37; Status DC Multivitamins (Thera M Plus) 1 tab DAILY PO ; Start 05/15/18 at 12:30 Potassium Chloride (Klor-Con) 20 meq DAILYWBKFT PO ; Start 05/15/18 at 12:30 Amino Acids/ Glycerin/ Electrolytes 1,000 ml @ 80 mls/hr [id number] IV Last administered on 05/19/18at 23:03; Start 05/15/18 at 18:30 Lorazepam (Ativan) 0.5 mg PRN Q4HRS PRN IV ANXIETY / AGITATION Last administered on 05/19/18at 20:57; Start 05/16/18 at 12:00 Acetaminophen (Tylenol Supp) 650 mg PRN Q6HRS PRN MS MILD PAIN / TEMP Last administered on 05/18/18at 15:30; Start 05/16/18 at 19:45 Levofloxacin/ Dextrose 150 ml @ 100 mls/hr Q24H IV Last administered on at 20:56; Start 05/16/18 at 20:00 Active Scripts Active Colace (Docusate Sodium) 100 Mg Capsule 100 Mg PO BID Reported Elizabeth Antifungal (Miconazole Nitrate) 142 Gm Cream..g. 142 Gm TP BID PRN Nystatin 15 Gm Powder 1 Kaylan TP BID Colace (Docusate Sodium) 100 Mg Capsule 1 Cap PO DAILY Vitamin D (Cholecalciferol (Vitamin D3)) 2,000 Unit Capsule 5,000 Unit PO DAILY Centrum Silver Tablet (Multivits-Min/Fa/Lycopene/Lut) 1 Each Tablet 1 Each PO DAILY Lasix (Furosemide) 40 Mg Tablet 1 Tab PO DAILY Potassium Chloride 20 Meq Tablet.er 20 Meq PO DAILY Ipratropium [place] 0.2 Mg/1 Ml Solution 0.5 Mg NEB QID Vitamin D (Cholecalciferol (Vitamin D3)) 1,000 Unit Capsule 1 Cap PO DAILY Mirapex (Pramipexole Di-Hcl) 0.25 Mg Tablet 1.5 Mg PO TID Sinemet 25-100 Mg Tablet (Carbidopa/Levodopa) 1 Each Tablet 1 Tab PO QID 30 Days take 1 tablet four times a day, add an additional tablet to the afternoon dose Zyrtec (Cetirizine Hcl) 10 Mg Tablet 1 Tab PO DAILY Vitals/I & O Vital Sign - Last 24 Hours 05/19/18 05/19/18 05/19/18 05/19/18 08:00 11:04 11:50 15:17 Temp 98.8 97.5 98.8 97.5 Pulse 78 71 Resp 22 22 B/P (MAP) 138/62 (87) 136/65 (88) Pulse Ox 93 94 O2 Delivery Nasal Cannula Nasal Cannula Nasal Cannula Nasal Cannula O2 Flow Rate 3.0 2.0 2.0 2.0 05/19/18 05/19/18 05/19/18 05/19/18 15:22 19:06 19:20 20:13 Temp 99.9 99.9 Pulse 81 Resp 32 B/P (MAP) 136/69 (91) Pulse Ox 94 95 O2 Delivery Nasal Cannula Nasal Cannula Nasal Cannula Nasal Cannula O2 Flow Rate 3.0 3.0 2.0 3.0 05/19/18 05/20/18 23:25 03:25 Temp 100.0 99.6 100.0 99.6 Pulse 78 78 Resp 28 30 B/P (MAP) 125/51 (75) 128/65 (86) Pulse Ox 93 93 O2 Delivery Nasal Cannula Nasal Cannula O2 Flow Rate 3.0 3.0 Intake and Output 05/19/18 05/19/18 05/20/18 15:00 23:00 07:00 Intake Total 0 ml 1760 ml 0 ml Output Total 750 ml 550 ml Balance 0 ml 1010 ml -550 ml Nutrition Consultation Dietary Evaluation: Recommendations by RD: PPN/TPN Comments: continue PPN at this time pt. to d/c home on hospice tomorrow Expected Outcomes/Goals: comfort Malnutrition Findings: Food and Nutrition Intake (Mod: <75% est energy req 7days Weight Status: Obese MARVA JOYA MD May 20, 2018 07:42
[2018-05-20] MEDS ORDERED: LORazepam INTENSOL 2 MG/ML ORAL.CONC SL PRN (07:45)
[2018-05-20] MEDS ORDERED: MORPHINE SULFATE 20 MG/ML CONC SOLUTION. SL PRN (07:45)
[2018-05-20] MEDS: IPRATRPIUM/ALBUTEROL 0.5/2.5MG 3 ML NEBU. NEB SCH ×2 (08:00→11:42)
[2018-05-20] MEDS: NYSTATIN TOPICAL POWDER 15GM BOTTLE. TP SCH (09:05)
[2018-05-20] MEDS: FUROSEMIDE 40 MG/4 ML VIAL. IVP SCH (09:05)
[2018-05-20 11:00] VITALS: BP 128/66
[2018-05-20] MEDS: AMINO AC 3%/ELECTROLYTE/GLYCER 1,000 ML IV SCH (11:00)
--- NOTE | 2018-05-20 11:02 | NUR ---
SW following pt. 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 ALBERT arranged transport via [facility] at 1300. Spoke with Abigail at hospice and notified them of plan. Physician notified for orders. Will continue to follow. Addendum: 05/20/18 at 1515 by FELICIANO PRICE ALBERT phoned and faxed orders to hospice.
--- NOTE | 2018-05-20 12:03 | PDOC ---
PULMONARY PROGRESS NOTES Subjective sleepy Vitals Vital Signs Date Time Temp Pulse Resp B/P (MAP) Pulse Ox O2 Delivery O2 Flow Rate FiO2 05/20/18 11:42 95 Nasal Cannula 3.0 05/20/18 11:00 98.9 78 24 128/66 (86) 98.9 General: No acute distress HEENT: Other (nc at perrl) Lungs: Clear Cardiovascular: S1, S2 Abdomen: Soft, Non-tender Extremities: Other Skin: Warm Medications Active Scripts Medications Dose Route/Sig Max Daily Dose Days Date Category Dose Instructions Elizabeth Antifungal (Miconazole Nitrate) 142 Gm Cream..g. 142 Gm TP BID PRN 05/12/18 Reported Nystatin 15 Gm Powder 1 Kaylan TP BID 05/12/18 Reported Colace (Docusate Sodium) 100 Mg Capsule 1 Cap PO DAILY 04/13/18 Reported Vitamin D (Cholecalciferol (Vitamin D3)) 2,000 Unit Capsule 5,000 Unit PO DAILY 04/13/18 Reported Centrum Silver Tablet (Multivits-Min/Fa/Lycopene/Lut) 1 Each Tablet 1 Each PO DAILY 04/13/18 Reported Lasix (Furosemide) 40 Mg Tablet 1 Tab PO DAILY 04/13/18 Reported Potassium Chloride 20 Meq Tablet.er 20 Meq PO DAILY 04/13/18 Reported Ipratropium [place] 0.2 Mg/1 Ml Solution 0.5 Mg NEB QID 04/13/18 Reported Vitamin D (Cholecalciferol (Vitamin D3)) 1,000 Unit Capsule 1 Cap PO DAILY 04/13/18 Reported Mirapex (Pramipexole Di-Hcl) 0.25 Mg Tablet 1.5 Mg PO TID 04/13/18 Reported Sinemet 25-100 Mg Tablet (Carbidopa/Levodopa) 1 Each Tablet 1 Tab PO QID 30 07/17/15 Reported take 1 tablet four times a day, add an additional tablet to the afternoon dose Zyrtec (Cetirizine Hcl) 10 Mg Tablet 1 Tab PO DAILY 03/20/15 Reported Colace (Docusate Sodium) 100 Mg Capsule 100 Mg PO BID 04/06/14 Rx Impression . IMPRESSION: 1. Aspiration pneumonia. 2. dysphagia 3. Persistent bilateral pulmonary infiltrates related to chronic aspiration. 4. History of chronic respiratory failure. As indicated above, the patient was hospitalized here, treated for acute respiratory distress syndrome, underwent tracheotomy and eventually was decannulated. 5. Parkinsonism. ADVANCED 6. Diabetic neuropathy. 7. Generalized weakness. 8. Toxic metabolic encephalopathy present upon admission, improved. Plan . PLAN: 1. abx per ID 2. The patient is status post bronchoscopy. Cultures at that time were negative. 2. Follow speech therapist's recommendation for diet./ On PPN./ palliative meeting done , plan for hospice 3. Continue other medication. 4. Continue oxygen supplementation. 02 titration. 5. BD 6. elevate HOB/ PPN for now will sign off not much else to offer PATITO ANTONIO MD May 20, 2018 12:03
[2018-05-20] MEDS ORDERED: MORP100S3 SL (12:39)
[2018-05-20] MEDS ORDERED: LORA2ORA7 SL (12:39)
[2018-05-20] MEDS ORDERED: ACET650S11 PR (12:39)
[2018-05-20] MEDS ORDERED: SCOP1PAT11 TD (12:39)
--- NOTE | 2018-05-20 12:41 | DISCH ---
DISCHARGE WITH HOME HEALTH DISCHARGE INFORMATION: Discharge Date: May 20, 2018 Condition on Discharge: Guarded CODE STATUS: Code Status: DNR/DNI HOME HEALTH: Face to Face: I certify this patient is under my care and that I, or a nurse practitioner or physician's assistant professor of business working with me, had a face to face encounter that meets the physician face to face encounter requirements with this patient on 05/20/18. Medical Complications: Other (Parkinsons) POST DISCHARGE ORDERS: Activity Instructions for Disc: Activity as tolerated Weight Bearing Status after Di: As tolerated Bathing Instructions: Shower-keep dressing dry DIET AFTER DISCHARGE: Regular Wound/Incision Care: Keep wound/cast CDI, Change dressing FOLLOW-UP: Follow up with: HOSPICE TREATMENT/EQUIPMENT ORDERS: Adaptive Equipment Issued: None, Walker Discharge Respiratory Equipmen: Oxygen CERTIFICATION STATEMENT: Certification Statement: Certification Statement: Based on the above finding, I certify that this patient is confined to the home and needs intermittent long-term care, physical therapy and/or speech therapy, or continues to need occupational therapy.~ This patient is under my care, and I have initiated the establishment of the plan of care.~ This patient will be followed by myself or a community physician who will periodically review the plan of care. Home Meds Active Scripts Scopolamine (TRANSDERM-SCOP) 1 Each Patch.td72, 1 PATCH TD Q3DAYS for N/V for 30 Days, #10 PATCH Prov:MARVA JOYA MD 05/20/18 Lorazepam (LORAZEPAM INTENSOL) 2 Mg/1 Ml Oral.conc, 0.5 MG SL PRN Q3HRS PRN for ANXIETY / AGITATION for 30 Days, #1 MISC Prov:MARVA JOYA MD 05/20/18 Acetaminophen (ACETAMINOPHEN SUPP) 650 Mg Supp.rect, 650 MG SC PRN Q6HRS PRN for MILD PAIN / TEMP for 30 Days, #60 SUPP.RECT Prov:MARVA JOYA MD 05/20/18 Morphine Sulfate (MORPHINE SULFATE) 100 Mg/5 Ml Solution, 5 MG SL PRN Q3HRS PRN for PAIN for 30 Days, #1 MISC Prov:MARVA JOYA MD 05/20/18 Reported Medications Miconazole Nitrate (WILFRED ANTIFUNGAL) 142 Gm Cream..g., 142 GM TP BID PRN for RASH, EACH 05/12/18 Ipratropium [place] (IPRATROPIUM BROMIDE) 0.2 Mg/1 Ml Solution, 0.5 MG NEB QID for BREATHING, #300 ML 3 Refills 04/13/18 Discontinued Reported Medications Nystatin (NYSTATIN) 15 Gm Powder, 1 ALEKSANDR TP BID for yeast, #1 BOTTLE 05/12/18 Docusate Sodium (COLACE) 100 Mg Capsule, 1 CAP PO DAILY for CONSTIPATION, #30 CAP 04/13/18 Cholecalciferol (Vitamin D3) (VITAMIN D) 2,000 Unit Capsule, 5000 UNIT PO DAILY for VITAMIN, CAP 04/13/18 Multivits-Min/Fa/Lycopene/Lut (CENTRUM SILVER TABLET) 1 Each Tablet, 1 EACH PO DAILY for VITAMIN, TAB 04/13/18 Furosemide (LASIX) 40 Mg Tablet, 1 TAB PO DAILY for FLUID RETENSION, #90 TAB 1 Refill 04/13/18 Potassium Chloride (POTASSIUM CHLORIDE) 20 Meq Tablet.er, 20 MEQ PO DAILY for SUPPLEMENT, TAB.SR 04/13/18 Cholecalciferol (Vitamin D3) (VITAMIN D) 1,000 Unit Capsule, 1 CAP PO DAILY for VITAMIN, #30 CAP 3 Refills 04/13/18 Pramipexole Di-Hcl (MIRAPEX) 0.25 Mg Tablet, 1.5 MG PO TID for PARKINSON, TAB 04/13/18 Carbidopa/Levodopa (SINEMET 25-100 MG TABLET) 1 Each Tablet, 1 TAB PO QID for 30 Days, #120 TAB take 1 tablet four times a day, add an additional tablet to the afternoon dose 07/17/15 Cetirizine Hcl (ZYRTEC) 10 Mg Tablet, 1 TAB PO DAILY, #30 TAB 2 Refills 03/20/15 Discontinued Scripts Docusate Sodium (COLACE) 100 Mg Capsule, 100 MG PO BID, #60 CAP Prov:MICHEL GARAY MD 04/06/14 MARVA JOYA MD May 20, 2018 12:41
--- NOTE | 2018-05-20 13:21 | DISCH ---
DISCHARGE DISCHARGE INFORMATION: DISCHARGE DATE: May 20, 2018 CONDITION ON DISCHARGE: Critical CODE STATUS: Code Status: DNR/DNI HOSPICE: HOSPICE: Yes HOSPICE EVAL & TREAT: Yes POST DISCHARGE ORDERS: ACTIVITY ORDERS: Activity as tolerated WEIGHT BEARING STATUS: As tolerated BATHING ORDERS: Shower-keep dressing dry DIET AFTER DISCHARGE: Regular WOUND/INCISION CARE: Keep wound/cast CDI, Change dressing FOLLOW-UP: PHYSICIAN FOLLOW-UP: HOSPICE ADDITIONAL FOLLOW-UP: hospice at home TREATMENT/EQUIPMENT ORDERS: ADAPTIVE EQUIPMENT NEEDED: None, Walker RESPIRATORY EQUIPMENT NEEDED: Oxygen DISCHARGE MEDICATIONS: Home Meds Active Scripts Scopolamine (TRANSDERM-SCOP) 1 Each Patch.td72, 1 PATCH TD Q3DAYS for N/V for 30 Days, #10 PATCH Prov:MARVA JOYA MD 05/20/18 Lorazepam (LORAZEPAM INTENSOL) 2 Mg/1 Ml Oral.conc, 0.5 MG SL PRN Q3HRS PRN for ANXIETY / AGITATION for 30 Days, #1 MISC Prov:MARVA JOYA MD 05/20/18 Acetaminophen (ACETAMINOPHEN SUPP) 650 Mg Supp.rect, 650 MG MT PRN Q6HRS PRN for MILD PAIN / TEMP for 30 Days, #60 SUPP.RECT Prov:MARVA JOYA MD 05/20/18 Morphine Sulfate (MORPHINE SULFATE) 100 Mg/5 Ml Solution, 5 MG SL PRN Q3HRS PRN for PAIN for 30 Days, #1 MISC Prov:MARVA JOYA MD 05/20/18 Reported Medications Miconazole Nitrate (WILFRED ANTIFUNGAL) 142 Gm Cream..g., 142 GM TP BID PRN for RASH, EACH 05/12/18 Ipratropium [place] (IPRATROPIUM BROMIDE) 0.2 Mg/1 Ml Solution, 0.5 MG NEB QID for BREATHING, #300 ML 3 Refills 04/13/18 Discontinued Reported Medications Nystatin (NYSTATIN) 15 Gm Powder, 1 ALEKSANDR TP BID for yeast, #1 BOTTLE 05/12/18 Docusate Sodium (COLACE) 100 Mg Capsule, 1 CAP PO DAILY for CONSTIPATION, #30 CAP 04/13/18 Cholecalciferol (Vitamin D3) (VITAMIN D) 2,000 Unit Capsule, 5000 UNIT PO DAILY for VITAMIN, CAP 04/13/18 Multivits-Min/Fa/Lycopene/Lut (CENTRUM SILVER TABLET) 1 Each Tablet, 1 EACH PO DAILY for VITAMIN, TAB 04/13/18 Furosemide (LASIX) 40 Mg Tablet, 1 TAB PO DAILY for FLUID RETENSION, #90 TAB 1 Refill 04/13/18 Potassium Chloride (POTASSIUM CHLORIDE) 20 Meq Tablet.er, 20 MEQ PO DAILY for SUPPLEMENT, TAB.SR 04/13/18 Cholecalciferol (Vitamin D3) (VITAMIN D) 1,000 Unit Capsule, 1 CAP PO DAILY for VITAMIN, #30 CAP 3 Refills 04/13/18 Pramipexole Di-Hcl (MIRAPEX) 0.25 Mg Tablet, 1.5 MG PO TID for PARKINSON, TAB 04/13/18 Carbidopa/Levodopa (SINEMET 25-100 MG TABLET) 1 Each Tablet, 1 TAB PO QID for 30 Days, #120 TAB take 1 tablet four times a day, add an additional tablet to the afternoon dose 07/17/15 Cetirizine Hcl (ZYRTEC) 10 Mg Tablet, 1 TAB PO DAILY, #30 TAB 2 Refills 03/20/15 Discontinued Scripts Docusate Sodium (COLACE) 100 Mg Capsule, 100 MG PO BID, #60 CAP Prov:MICHEL GARAY MD 04/06/14 MARVA JOYA MD May 20, 2018 13:21
--- NOTE | 2018-05-20 14:11 | PDOC ---
PROGRESS NOTES Assessment Assessment Respiratory failure. Pulmonary congestion. Metabolic encephalopathy. Delirium. Agitation. Severe dysphagia. HTN PD. Degenerative spine disease. Diabetic peripheral neuropathy. Brain atrophy, parietal lobe predominant. Obesity. RECOMMENDATIONS/PLAN: Continue medical treatment at the present time. Ativan 0.5 mg IV q4h PRN for agitation. Seroquel not given due to no IV or IM formula. Patient and his declined NG and PEG and decided palliative care at home. Unable to administrate medications that only have PO formula. Discussed with his in detail at bedside on 05/19/18. Brain MRI on 07/08/17: Brain value loss. Past Medical History Cardiovascular: HTN CENTRAL NERVOUS SYSTEM: Peripheral neuropathy (diabetic, axonal, EMG 05/06/17), Parkinson's Musculoskeletal: Lumbar and cervical spinal stenosis. Endocrine: Diabetes Past Surgical History: Lumbar and cervical, fifth digit fracture. C-spine stenosis s/p surgery. Family History Parkinson's disease, Alzheimer's. Social History Denied smoking, drinking and illicit drug use. ALLERGY: Reviewed. MEDICATIONS: Refer to MAR REVIEW OF SYSTEMS: Constitutional: Obesity. Head: No traumatic brain or head injury. Skin: No rash. Ear: No infection. Eyes: No vision loss, or diplopia. Nose: No bleeding or purulent discharges. Hearing: Mild hearing decrease. Neck: s /p surgery Cardiac: HTN Pulmonary: No COPD. GI: No GI Ulcer, GI bleeding Urinary/genital: No dysuria, incontinence, urinary retention. Endocrine: Diabetes Mellitus, obesity. Skeletomuscular: No muscular atrophy, deformity. Neurological: see HP. Psychiatric: Denies drug use/abuse. Otherwise, not [id number] review of systems. PHYSICAL EXAMINATION: General appearance in subacute distress. HEENT: Normocephalic and nontraumatic. Eyes, nose, ears, and throat are unremarkable. Hearing decrease. Neck is supple. No lymphadenopathy. No bruits are heard over the carotid artery. No Crepitus. Cardiovascular: S1, S2, regular rate and rhythm. Pulmonary: Clear to auscultation bilaterally. Abdomen: Bowel sounds are positive. Extremities: No rash, lesions. No restriction of range of motion NEUROLOGICAL EXAMINATION: Drowsiness. On NC 02. Not oriented to time, place but knew his . PERRL. EOMI. CN: no acute focal findings. Muscle tone: Increased. Muscle strength: 5- DTR: 1+ UE, 1- at knee. Plantar reflex: Neutral response bilaterally Gait: Unable to walk at the present time. Sensory exam: no acute abnormal findings, but exam not accurate in this mentation. No acute cerebellar signs elicited. F-T-N test not performed due to not follow commands. Objective Objective Vital Signs Date Time Temp Pulse Resp B/P (MAP) Pulse Ox O2 Delivery O2 Flow Rate FiO2 05/20/18 11:42 95 Nasal Cannula 3.0 05/20/18 11:00 98.9 78 24 128/66 (86) 98.9 Intake and Output 05/20/18 07:00 Intake Total 1760 ml Output Total 1300 ml Balance 460 ml Intake Oral 0 ml Other 1760 ml Output Urine Total 1300 ml Vitals Signs Vitals VS - Last 72 Hours, by Label Date Time Temp Pulse Resp B/P (MAP) Pulse Ox O2 Delivery O2 Flow Rate FiO2 05/20/18 11:42 95 Nasal Cannula 3.0 05/20/18 11:00 98.9 78 24 128/66 (86) 93 Nasal Cannula 3.0 98.9 05/20/18 08:09 93 Nasal Cannula 3.0 05/20/18 08:00 Nasal Cannula 3.0 05/20/18 07:00 98.6 75 24 124/66 (85) 92 Nasal Cannula 3.0 98.6 05/20/18 03:25 99.6 78 30 128/65 (86) 93 Nasal Cannula 3.0 99.6 05/19/18 23:25 100.0 78 28 125/51 (75) 93 Nasal Cannula 3.0 100.0 05/19/18 20:13 Nasal Cannula 3.0 05/19/18 19:20 99.9 81 32 136/69 (91) 95 Nasal Cannula 2.0 99.9 05/19/18 19:06 94 Nasal Cannula 3.0 05/19/18 15:22 Nasal Cannula 3.0 05/19/18 15:17 97.5 71 22 136/65 (88) 94 Nasal Cannula 2.0 97.5 05/19/18 11:50 Nasal Cannula 2.0 05/19/18 11:04 98.8 78 22 138/62 (87) 93 Nasal Cannula 2.0 98.8 05/19/18 08:00 Nasal Cannula 3.0 05/19/18 07:14 98 Nasal Cannula 3.0 05/19/18 07:00 98.3 72 20 128/67 (87) 95 Nasal Cannula 2.0 98.3 Laboratory Laboratory Microbiology 05/12/18 Blood Culture - Final, Complete NO GROWTH AFTER 5 DAYS Medication Medications Current Medications Lorazepam (Ativan Intensol) 0.5 mg PRN Q3HRS PRN SL ANXIETY / AGITATION; Start 05/20/18 at 07:45 Morphine Sulfate (Roxanol Conc) 5 mg PRN Q3HRS PRN SL PAIN; Start 05/20/18 at 07:45 Comment Review of Relevant I have reviewed the following items brett (where applicable) has been applied. RD EWING MD May 20, 2018 14:11
--- NOTE | 2018-05-20 15:37 | NUR ---
Discharge Note: LUIS HODGES [address] Discharge instructions and discharge home medications reviewed with Spouse and a copy given. All questions have been answered and understanding verbalized. The following instructions and handouts were given: Diet, activity, medication list and follow up instructions called to patient's , Nelli. Discontinued lines and drains: Peripheral IV discontinued and catheter intact. Patient discharged to Home w/services Stefani Espinal
--- NOTE | 2018-06-05 13:45 | PDOC3 ---
Discharge Summary Visit Information Date of Admission: May 12, 2018 Date of Discharge: May 20, 2018 Admitting Diagnosis: Aspiration pneumonia Final Diagnosis Dysphagia, Aspiration pneumonia, parkinsons Brief Hospital Course Allergies Allergies Coded Allergies Type Severity Reaction Last Updated Verified amoxicillin Allergy Severe Anaphylaxis 08/26/17 Yes aspirin Allergy Severe Anaphylaxis 08/26/17 Yes clavulanic acid Allergy Severe Anaphylaxis 08/26/17 Yes ibuprofen Allergy Severe 08/26/17 Yes meperidine Allergy Severe Anaphylaxis, has tolerated Fentanyl 03/201408/26/17 Yes propoxyphene Allergy Severe 08/26/17 Yes Brief Hospital Course 72 yo M with PMHx parkinsons 9 years advanced with multiple medical problems over the past few months admitted for aspiration pneumonia. 05/14-:Video swallow proves overt aspiration and abated upon resumption of honey thickened, Family at bedside, patient lives with the at [place], Patient and family agreeable to [facility] asks me about my opinion in increasing his Sinemet which she has been on the dose for many years in the background of recent delirium features, mention of some autonomic involvement now, hypotension at home causing near falls. Would like Dr. Claros contacted about admission 05/16: Very agitated this morning. notes that he never yells at baseline. Son notes this as well and notes that patient apologized to the family for "being a failure". Patient notes 3 additional people in the room and has been writing out S.O.S. He is frustrated no one understands him. His relays that before the hospital stay he was "harmlessly hallucinating" at home, seeing [place] at the table and additional place settings, but his current mental status frightens the family. I spoke with family in waiting room about code status, they have made it clear he does not wish to be on the ventilator and would like to be DNR, though he did not have advanced directives. 05/17: Overnight he did hallucinate more, but this morning feeling better. Sitting up to chair, bedside. He is not verbalizing well, but asking for writing materials with hand signals. 05/18: He was able to vocalize with me today. States he wants to be comfortable, not to be a burden to family. Wishes his mouth was not so dry. States he will take a PEG tube if Nelli wishes it. I met with Nelli and palliative care to discuss goals of care, she wishes to meet with hospice in the next day. 05/19: Patient continues to ask his to leave. He also c/o throat pain, removed thickened secretions with some relief. He continues to say no to PEG feedings. Is ok with meeting with hospice for d/c planning. Feeling more relief today Assessment: Parkinson's, with dementia and delirium fxs - he is on pramipexole and carbidopa / levodopa Diabetic neuropathy Possible dysphagia Possible pneumonia. Dysautonomia, from Parkinsons Urinary incontinence Chronic aspiration - being covered with levaquin Pulmonary congestion on chest x-ray Atelectasis Plan: Nothing By mouth for now Was previously on dysphagia 3 with honey thickened Social work consulted, family agreeable to Hospice, prefers home today CODE - DNR after d/w family ProcalAmine low dose MILK DRIER evaluation again Dvt ppx Suction when necessary Trial of scopolamine patch-unsure if this will help at all. Ativan for agitation Very high fall risk Discussed with RN I have recommended against PEG tube given his recent signs of autonomic involvement with his parkinsons, though he has previously had a PEG and palliative care has been consulted per family wishes. He only had this for 4-6 weeks. Greater than 30 minutes spent on discharge including planning and arrangement with hospice Discharge Information Condition at Discharge: Stable Follow Up: Weeks Disposition/Orders: D/C to Home w/ Hospice Scheduled Ipratropium [place] (Ipratropium [place]) 0.2 Mg/1 Ml Solution, 0.5 MG NEB QID for BREATHING, #300 Ref 3 (Reported) Entered as Reported by: IDA DRUMMOND on 04/13/18 1239 Last Action: Continued on 05/12/182207 by Eve Perez Scopolamine (Transderm-Scop) 1 Each Patch.td72, 1 PATCH TD Q3DAYS for N/V for 30 Days, #10 Prescribed by: MARVA JOYA MD on 05/20/18 1239 Scheduled PRN Acetaminophen (Acetaminophen Supp) 650 Mg Supp.rect, 650 MG WI PRN Q6HRS PRN for MILD PAIN / TEMP for 30 Days, #60 Prescribed by: MARVA JOYA MD on 05/20/18 1239 Lorazepam (Lorazepam Intensol) 2 Mg/1 Ml Oral.conc, 0.5 MG SL PRN Q3HRS PRN for ANXIETY / AGITATION for 30 Days, #1 Prescribed by: MARVA JOYA MD on 05/20/18 1239 Miconazole Nitrate (Elizabeth Antifungal) 142 Gm Cream..g., 142 GM TP BID PRN for RASH, (Reported) Entered as Reported by: Eve Perez on 05/12/182143 Last Action: Continued on 05/12/182207 by Eve Perez Morphine Sulfate (Morphine Sulfate) 100 Mg/5 Ml Solution, 5 MG SL PRN Q3HRS PRN for PAIN for 30 Days, #1 Prescribed by: MARVA JOYA MD on 05/20/18 1239 MARVA JOYA MD Jun 05, 2018 13:45
== END 2018-05-20 15:23 | disposition hospice, home (50) | DRG 871 ==
LOC: ER 14:18 → 6 SOUTH 16:50
PROVIDERS: ADMIT Internal Medicine; ATTEND Internal Medicine
DX: A41.9 Sepsis, unspecified organism (principal); J69.0 Pneumonitis due to inhalation of food and vomit; G92 Toxic encephalopathy; J98.11 Atelectasis; J96.11 Chronic respiratory failure with hypoxia; G20 Parkinson's disease; R13.10 Dysphagia, unspecified; F02.80 Dementia in other diseases classified elsewhere, unspecified severity, without behavioral disturbance, psychotic disturbance, mood disturbance, and anxiety; E11.40 Type 2 diabetes mellitus with diabetic neuropathy, unspecified; E11.42 Type 2 diabetes mellitus with diabetic polyneuropathy; E66.9 Obesity, unspecified; I10 Essential (primary) hypertension; G31.9 Degenerative disease of nervous system, unspecified; I95.1 Orthostatic hypotension; Z51.5 Encounter for palliative care; Z82.0 Family history of epilepsy and other diseases of the nervous system; Z82.49 Family history of ischemic heart disease and other diseases of the circulatory system; Z87.891 Personal history of nicotine dependence; Z96.649 Presence of unspecified artificial hip joint; Z99.81 Dependence on supplemental oxygen; G89.29 Other chronic pain; M48.02 Spinal stenosis, cervical region; Z68.33 Body mass index [BMI] 33.0-33.9, adult; Z88.6 Allergy status to analgesic agent; Z88.1 Allergy status to other antibiotic agents; Z88.8 Allergy status to other drugs, medicaments and biological substances
CPT/HCPCS: 36415; 70450; 71045; 74230; 80048; 80053; 80202; 81001; 82565; 82962; 83605; 84484; 85007; 85025; 85651; 87040; 87804; 93005; 94640; 94760; 96361; 96365; 96367; J1940; J1956; J2060; J3370; J7040; J7512; J7620; J7644; 92526; 92610; 92611; 97110; 97116; 97530; 99285-25